=== PATIENT | male | born 1960 | race Caucasian/White ===

== ENCOUNTER 2018-01-21 16:05 | Emergency (ER) | payer OTHER ==
[2018-01-21 16:22] VITALS: BP 123/79; PULSE 71; RESP 18; TEMP 97.4
[2018-01-21] MEDS ORDERED: KETOROLAC 30 MG/ML 1 ML VIAL IM STA (16:39)
--- NOTE | 2018-01-21 16:47 | ED ---
Lower Extremity Injury HPI - General Chief Complaint: Extremity Injury, Lower Stated Complaint: rt knee injury Time Seen by Provider: 01/21/18 16:23 Source: patient, RN notes reviewed Mode of arrival: wheelchair Limitations: no limitations - History of Present Illness Initial Comments: This is a 57-year-old male who presents to the emergency department with chief complaint of right knee injury. 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 He states that his right knee has been sore for a while now but when he got out of his truck on Sunday he twisted it. He states that the pain was so bad that he felt nauseous. He complains of pain to the medial aspect of his right knee with associated swelling. He states that he has been having difficulty ambulating. Denies any other injuries or trauma. Denies fever, chills, chest pain, shortness of breath, abdominal pain, nausea or vomiting, constipation or diarrhea, dysuria or hematuria, numbness or tingling, headache or vision changes. - Related Data Allergies Allergy/AdvReac Type Severity Reaction Status Date / Time No Known Allergies Allergy Verified 01/21/18 16:21 Review of Systems ROS Statement: Those systems with pertinent positive or pertinent negative responses have been documented in the HPI. ROS Other: All systems not noted in ROS Statement are negative. Past Medical History Past Medical History: Atrial Fibrillation, Hypertension Additional Past Medical History / Comment(s): "bad back" History of Any Multi-Drug Resistant Organisms: None Reported Past Surgical History: Hernia Repair Additional Past Surgical History / Comment(s): carpal tunnel surgery on right wrist Past Psychological History: No Psychological Hx Reported Smoking Status: Former smoker Past Alcohol Use History: Rare Past Drug Use History: Marijuana General Exam - General Exam Comments Initial Comments: General: Awake and alert, well-developed; in no apparent distress. HEENT: Head atraumatic, normocephalic. Pupils are equal, round and reactive to light. Extraocular movements intact. Oropharynx moist without erythema or exudate. Neck: Supple. Normal ROM. Cardiovascular: Regular rate and rhythm. No murmurs, rubs or gallops. Chest symmetrical. Respiratory: Lungs clear to auscultation bilaterally. No wheezes, rales or rhonchi. Normal respiratory effort with no use of accessory muscles. Musculoskeletal: Normal range of motion of the right knee. There is generalized soft tissue swelling. Tenderness on palpation of the medial joint line. No erythema or ecchymosis noted. Sensation is intact. Pedal pulses are 2+ equal and palpable bilaterally. Skin: [place], warm and dry without rashes or lesions. Neurological: Alert and oriented x3. CN II-XII grossly intact. Speech is fluent and answers are appropriate. No focal neuro deficits. Psychiatric: Normal mood and affect. No overt signs of depression or anxiety noted. Limitations: no limitations Course Vital Signs 01/21/18 16:15 Temperature 97.4 F L Pulse Rate 71 Respiratory 18 Rate Blood Pressure 123/79 O2 Sat by Pulse 96 Oximetry Medical Decision Making - Medical Decision Making This is a 57-year-old male who presents to the emergency department with chief complaint of right knee injury. Patient is constantly on his knees for work and has chronic knee pain. However, on Sunday he got out of his truck and twisted the right knee which resulted in an acute onset of pain and swelling. Patient is having difficulty ambulating due to the pain. An x-ray was obtained and revealed no acute fractures or dislocations. Patient likely suffering from a ligamentous injury to the right knee. Knee immobilizer was placed and patient tolerated well without complication. He will be given referral to orthopedics for follow-up. Vital signs are stable and he is in no acute distress. He is neurovascularly intact. Patient will be discharged home at this time. He is in agreement with plan and voices understanding. All questions were answered. - Radiology Data Radiology results: report reviewed, image reviewed X-ray right knee impression: There is no acute fracture or dislocation in the right knee Disposition Clinical Impression: Acute internal derangement of knee Disposition: HOME SELF-CARE Condition: Good Instructions: Knee Sprain (ED) Additional Instructions: Please rest, ice, elevate and wear the immobilizer throughout the day. Please follow up with Dr. Kilgore, orthopedics within 1-2 days. Please follow up with primary care provider within 1-2 days. Return to emergency department if symptoms should worsen or any concerns arise. Is patient prescribed a controlled substance at d/c from ED?: No Referrals: Hermelindo King MD [Primary Care Provider] - 1-2 days Oni Kilgore MD [STAFF PHYSICIAN] - 1-2 days Time of Disposition: 17:00
--- NOTE | 2018-01-21 16:58 | XR ---
EXAMINATION TYPE: XR knee complete RT DATE OF EXAM: 01/21/2018 CLINICAL HISTORY: Pain after twisting injury. TECHNIQUE: Three views of the right knee are obtained. COMPARISON: None. FINDINGS: There is no acute fracture/dislocation evident in right knee. There is mild joint space lo ss medial and lateral tibiofemoral compartments. There is mild to moderate joint space loss patellofe moral compartment. Posterior vascular calcification distal femur level is seen. IMPRESSION: There is no acute fracture or dislocation in the ht knee.
== END 2018-01-21 17:20 | disposition home or self-care (01) ==
LOC: EC 16:05
DX: S89.81XA Other specified injuries of right lower leg, initial encounter (principal); Z87.891 Personal history of nicotine dependence; X50.1XXA Overexertion from prolonged static or awkward postures, initial encounter; Y93.89 Activity, other specified
CPT/HCPCS: 73562; 99283; 96372; L1830; J1885

== ENCOUNTER → 2024-07-15 | Outpatient (CLI) | payer MEDICARE ==
--- NOTE | 2024-07-16 09:40 | MR ---
EXAMINATION TYPE: MR lumbar spine wo/w con DATE OF EXAM: 07/15/2024 10:16 PM COMPARISON: None. CLINICAL INDICATION: Male, 63 years old with history of M51.369; PHH, low back pain that radiates int o left and right buttocks and down right leg TECHNIQUE: Multi planar, multi sequence imaging was performed utilizing: T1-weighted, T2-weighted, a nd turbo inversion recovery imaging of the lumbar spine. IV Contrast: 11 mL Gadobutrol (None, if empty) FINDINGS: Alignment: The lumbar vertebral bodies have preserved heights and alignment. Cord: The conus medullaris and the distal spinal cord appear unremarkable with regards to their signa l intensity and morphology. No abnormal postcontrast enhancement. Bones/Discs: Moderate degeneration changes throughout the spine with osteophyte formation and facet j oint arthropathy. Intervertebral disc signal is maintained. Reactive adjoining endplate edema at L2-L 3 posterior endplates. Neural pseudoarthrosis of the spinous processes with reactive enhancement. T12-L1: No evidence of significant spinal canal stenosis or neural foraminal stenosis. L1-L2: No evidence of significant spinal canal stenosis or neural foraminal stenosis. L2-L3: Disc bulge and facet joint arthropathy result in moderate to severe spinal canal and moderate to severe left and moderate right bilateral neural foraminal stenosis. Some reactive enhancement at the level of the L2-L3 posterior endplates in the area of large disc bulge. Degenerative reactive enh ancement also seen around the facet joints at this level. L3-L4: Disc bulge and facet joint arthropathy result in mild spinal canal and mild to moderate bilate ral neural foraminal stenosis. Degenerative reactive enhancement also seen around the facet joints a t this level. L4-L5: Disc uncovering the central disc protrusion with grade 1 anterolisthesis and facet joint arthr opathy with moderate spinal canal stenosis and moderate bilateral bilateral neural foraminal stenosis . Nerve roots are displaced by the disc protrusion centrally. Degenerative reactive enhancement also seen around the facet joints at this level. L5-S1: The disc has a rounded posterior morphology without significant spinal canal stenosis. Facet j oint arthropathy with moderate to severe left and mild right neural foraminal stenosis. No significant spinal canal or neural foraminal stenosis in the remainder of the visualized levels. Other findings: None. IMPRESSION: 1. L2-L3 moderate to severe spinal canal stenosis secondary disc bulge and facet joint arthropathy w ith moderate bilateral neural foraminal stenosis. There are some reactive enhancement at the adjoinin g endplates near this disc bulge posteriorly. 2. Moderate disc degeneration with associated osteoarthritic changes. Neural foraminal stenosis wors e with moderate to severe left 3. Grade 1 anterolisthesis of L4 and L5 with central disc protrusion results in moderate bilateral n eural foraminal stenosis and moderate spinal canal stenosis. This central protrusion does efface the cauda equina in the spinal canal. 4. 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 [facility], Workstation: [id number], 07/16/2024 9:37 AM
== END | disposition home or self-care (01) ==
LOC: RADMRIMAIN 19:00
PROVIDERS: ATTEND Family Medicine
DX: M51.369 Other intervertebral disc degeneration, lumbar region without mention of lumbar back pain or lower extremity pain (principal); M51.26 Other intervertebral disc displacement, lumbar region; M47.816 Spondylosis without myelopathy or radiculopathy, lumbar region; M43.16 Spondylolisthesis, lumbar region; M99.73 Connective tissue and disc stenosis of intervertebral foramina of lumbar region; M48.26 Kissing spine, lumbar region
CPT/HCPCS: 72158; A9585

== ENCOUNTER → 2024-09-15 | Outpatient (CLI) | payer MEDICARE ==
--- NOTE | 2024-09-16 11:05 | CA ---
Transthoracic Echo Report Name: Ruben Bustillos Age: 64 Gender: M : 1960 Exam Date: 09/15/2024 17:25 Exam Location: [facility] Ht (in): 74 Wt (lb): 250 Ordering Physician: Pietro Woodard MD Attending/Referring Phys: [employer] Machine Operator Cecile Silva RDCS Procedure CPT: Indications: I27.20 pulmonary HTN Cardiac Hx: Technical Quality: Fair Contrast 1: Total Dose (mL): Contrast 2: Total Dose (mL): MEASUREMENTS (Male / Female) Normal Values 2D ECHO LV Diastolic Diameter PLAX 5.6 cm 4.2 - 5.9 / 3.9 - 5.3 cm LV Systolic Diameter PLAX 3.9 cm IVS Diastolic Thickness 1.2 cm 0.6 - 1.0 / 0.6 - 0.9 cm LVPW Diastolic Thickness 1.3 cm 0.6 - 1.0 / 0.6 - 0.9 cm LV Relative Wall Thickness 0.4 RV Internal Dim ED PLAX 3.7 cm LA Systolic Diameter LX 3.6 cm 3.0 - 4.0 / 2.7 - 3.8 cm LV Diastolic Volume MOD 4C 108.2 cm??? LV Systolic Volume MOD 4C 50.0 cm??? LV Ejection Fraction MOD 4C 53.8 % LV Cardiac Index MOD 4C 1561.3 cm???/min???m??? LV Diastolic Length 4C 7.7 cm LV Systolic Length 4C 6.7 cm LV Diastolic Volume MOD 2C 62.0 cm??? LV Systolic Volume MOD 2C 29.5 cm??? LV Ejection Fraction MOD 2C 52.4 % LV Cardiac Index MOD 2C 870.2 cm???/min???m??? LV Diastolic Length 2C 6.7 cm LV Systolic Length 2C 5.8 cm LA Volume 64.9 cm??? 18 - 58 / 22 - 52 cm??? LA Volume Index 26.4 cm???/m??? 16 - 28 cm???/m??? M-MODE Aortic Root Diameter MM 4.1 cm AV Cusp Separation MM 2.9 cm DOPPLER AV Peak Velocity 143.9 cm/s AV Peak Gradient 8.3 mmHg MV Area PHT 3.3 cm??? Mitral E Point Velocity 73.8 cm/s Mitral A Point Velocity 80.7 cm/s Mitral E to A Ratio 0.9 MV Deceleration Time 229.4 ms TR Peak Velocity 218.6 cm/s TR Peak Gradient 19.1 mmHg Right Ventricular Systolic Press 23.0 mmHg FINDINGS Left Ventricle Left ventricular ejection fraction is estimated at 55-60 %. Mildly increased septal wall thickness. Left ventricular cavity size normal. Right Ventricle Mild right ventricular dilatation. Right ventricular systolic pressure within normal limits. Right Atrium Mild right atrial dilatation. No right atrial thrombus or mass seen. Left Atrium Mildly increased left atrial volume. Mildly increased left atrial area. No left atrial thrombus or mass present. Mitral Valve Structurally normal mitral valve. No mitral stenosis, regurgitation or prolapse. Aortic Valve Trileaflet aortic valve. No aortic valve stenosis or regurgitation. Tricuspid Valve Structurally normal tricuspid valve. Trace to mild tricuspid regurgitation. Pulmonic Valve Structurally normal pulmonic valve. Trace pulmonic regurgitation. Pericardium No pericardial or pleural effusion. Aorta Moderate aortic dilatation at the level of the sinuses of valsalva 41 mm. Ascending AO up to 51 mm CONCLUSIONS LVEF 55% Mild concentric LVH Mild RV dilatation. Normal RV systolic function Mild biatrial dilatation No significant valvular dysfunction Aortic root measured at 4.1 cm. Ascending aorta measured at 5.1 cm. Consider obtaining a CTA aorta if not obtained 1 in the past. Previewed by: Dr Brian Recinos (Electronically Signed) Final Date: 16 September 2024 11:05
== END | disposition home or self-care (01) ==
LOC: RADECHMAIN 17:19
PROVIDERS: ATTEND Family Medicine
DX: I27.20 Pulmonary hypertension, unspecified (principal); I37.1 Nonrheumatic pulmonary valve insufficiency; I07.1 Rheumatic tricuspid insufficiency
CPT/HCPCS: 93306

== ENCOUNTER → 2024-10-13 | Outpatient (CLI) | payer MEDICARE ==
--- NOTE | 2024-10-13 18:30 | CT ---
EXAMINATION TYPE: CT angio chest CT DLP: 544.1 mGycm, Automated exposure control for dose reduction was used. DATE OF EXAM: 10/13/2024 6:00 PM COMPARISON: None. CLINICAL INDICATION:Male, 64 years old with history of I35.9, I48.0; afib/enlarged heart TECHNIQUE/CONTRAST: CTA scan of the thorax is performed with IV Contrast, patient injected with 100ml mL of Isovue 370, M IP images are created and reviewed these are created on a separate workstation.. FINDINGS: Pulmonary Artery: There is no evidence for a filling defect within the pulmonary vasculature to sugge st acute pulmonary embolism. The pulmonary artery is of normal size. Lungs/Pleura: No evidence of focal consolidation, pleural effusion or pneumothorax. Bibasilar atelect asis. Airway: Large airways are patent. Heart: Heart is within normal limits for size. Vasculature: No evidence of aortic aneurysm. Mediastinum: No gross evidence of adenopathy. Musculoskeletal: No acute osseous abnormalities Soft Tissues/lymph nodes: Unremarkable. Lower neck: No significant findings. Upper Abdomen: Small hiatal hernia. Incidental left adrenal gland indeterminate nodule measuring 1.5 cm. IMPRESSION: 1. No evidence of pulmonary embolism. 2. Indeterminate left adrenal gland nodule. Correlate with any prior imaging otherwise nonemergent/ou tpatient CT/MRI abdomen adrenal mass protocol with and without IV contrast is recommended for further characterization. [facility], , 10/13/2024 6:28 PM
== END | disposition home or self-care (01) ==
LOC: RADCTMAIN 17:20
PROVIDERS: ATTEND Family Medicine
DX: I35.9 Nonrheumatic aortic valve disorder, unspecified (principal); I48.0 Paroxysmal atrial fibrillation; K44.9 Diaphragmatic hernia without obstruction or gangrene; J98.11 Atelectasis
CPT/HCPCS: 71275; Q9967

== ENCOUNTER 2024-11-05 17:35 | Observation (INO) | payer MEDICARE ==
--- NOTE | 2024-11-05 18:15 | ED ---
Abdominal Pain HPI - General Chief Complaint: Abdominal Pain Stated Complaint: abd pain back pain Time Seen by Provider: 11/05/24 18:10 Source: patient, RN notes reviewed Mode of arrival: ambulatory Limitations: no limitations - History of Present Illness Initial Comments: This is a 64-year-old male who presents to the emergency department for abdominal pain. States that it started yesterday. Abdominal pain is in the mid to lower abdomen, however he does not believe it is worse on any particular side. States that it shoots straight into his back. Reports associated nausea and vomiting. Denies any changes in bowel or bladder habits. Denies any history of similar pain in the past. MD Complaint: abdominal pain - Related Data Home Medications Medication Instructions Recorded Confirmed Aspirin 325 mg PO DAILY 12/05/18 12/05/18 Cyclobenzaprine HCl 10 mg PO TID PRN 12/05/18 12/05/18 Gabapentin 600 mg PO BID 12/05/18 12/05/18 HYDROcodone/APAP 10-325MG [Left Hand 1 tab PO TID PRN 12/05/18 12/05/18 10-325] Ibuprofen/Pseudoephedrine HCl 1 tab PO BID PRN 12/05/18 12/05/18 [Advil Cold & Sinus Caplet] Terazosin HCl 10 mg PO BID 12/05/18 12/05/18 hydroCHLOROthiazide [Hydrodiuril] 25 mg PO DAILY 12/05/18 12/05/18 Previous Rx's Medication Instructions Recorded Metoprolol Tartrate [Lopressor] 50 mg PO BID #60 tab 12/06/18 Allergies Allergy/AdvReac Type Severity Reaction Status Date / Time No Known Allergies Allergy Verified 11/05/24 18:32 Review of Systems ROS Statement: Those systems with pertinent positive or pertinent negative responses have been documented in the HPI. ROS Other: All systems not noted in ROS Statement are negative. Past Medical History Past Medical History: Atrial Fibrillation, Hypertension Additional Past Medical History / Comment(s): Chronic back pain. History of Any Multi-Drug Resistant Organisms: None Reported Past Surgical History: Hernia Repair, Orthopedic Surgery, Tonsillectomy Additional Past Surgical History / Comment(s): R carpal tunnel release, bilateral inguinal hernia repairs, colonoscopy Past Anesthesia/Blood Transfusion Reactions: No Reported Reaction Past Psychological History: No Psychological Hx Reported Additional Psychological History / Comment(s): Pt resides with his spouse, 3 cats and a dog. 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 Past Alcohol Use History: Rare Additional Past Alcohol Use History / Comment(s): Pt started smoking in 1975 and quit in 2011. Past Drug Use History: Marijuana Additional Drug Use History / Comment(s): Occasional marijuana - Past Family History Father Additional Family Medical History / Comment(s): Father of a lung infection after a lung biopsy. Mother Family Medical History: Dementia, Diabetes Mellitus Additional Family Medical History / Comment(s): Mother is . General Exam Limitations: no limitations General appearance: alert, in distress Head exam: Present: atraumatic, normocephalic, normal inspection Respiratory exam: Present: normal lung sounds bilaterally. Absent: respiratory distress, wheezes, rales, rhonchi, stridor Cardiovascular Exam: Present: regular rate, normal rhythm GI/Abdominal exam: Present: soft, tenderness (Mid abdomen), normal bowel sounds. Absent: distended Neurological exam: Present: alert, oriented X3, CN II-XII intact Psychiatric exam: Present: normal affect, normal mood Skin exam: Present: warm, dry, intact, normal color. Absent: rash Course Vital Signs 11/05/24 11/05/24 18:29 23:34 Temperature 97.9 F Pulse Rate 98 99 Respiratory 24 20 Rate Blood Pressure 166/129 134/94 O2 Sat by Pulse 98 96 Oximetry Medical Decision Making - Medical Decision Making This is a 64-year-old male who presents to the emergency department for abdominal pain. Was pt. sent in by a medical professional or institution? @ -No Did you speak to anyone other than the patient for history? @ -No Did you review nursing and triage notes? @ -Yes, and I agree, it is accurate with regards to the patient's symptoms. Were old charts reviewed? @ -No Differential Diagnosis? @ -Differential Abdominal Pain Men: Appendicitis, cholecystitis, diverticulosis, ischemic bowel, pancreatitis, hepatitis, UTI, gastroenteritis, AAA, incarcerated hernia, bowel obstruction, constipation, inflammatory bowel, hepatitis, peptic ulcer disease, splenic infarction, perforated viscus, testicular torsion, this is not meant to be an all-inclusive list EKG interpreted by me (3pts min.)? @ -EKG interpreted by me demonstrating the following: Sinus rhythm. Ventricular rate 93 bpm, W[place] interval 179 ms, QRS duration 124 ms, QTc 420 ms. X-rays interpreted by me (1pt min.)? @ -Not obtained CT interpreted by me (1pt min.)? @ -CT scan of the abdomen and pelvis obtained. My interpretation identifies fat stranding around the pancreatic body. U/S interpreted by me (1pt. min.)? @ -Gallbladder ultrasound obtained. My interpretation identifies no cholelithiasis. What testing was considered but not performed? (CT, X-rays, U/S, labs)? Why? @ -None What meds were considered but not given? Why? @ -None Did you discuss the management of the patient with other professionals? @ -Yes, Dr. Woodard, who accepts the patient for admission. Did you reconcile home meds? @ -No Was smoking cessation discussed for >3mins.? @ -No Was critical care preformed (if so, how long)? @ -No Were there social determinants of health that impacted care today? How? (Homelessness, low income, unemployed, alcoholism, drug addiction, transportation, low edu. Level, literacy, decrease access to med. care, nursing home, rehab)? @ -No Was there de-escalation of care discussed even if they declined? (Discuss DNR or withdrawal of care, Hospice)? @ -No What co-morbidities impacted this encounter? (DM, HTN, Smoking, COPD, CAD, Cancer, CVA, Hep., AIDS, mental health diagnosis, sleep apnea, morbid obesity)? @ -None Was patient admitted / discharged? @ -Admitted. Lab work demonstrates mild leukocytosis of 11.6. Lipase elevated at 762. Urinalysis negative for signs of infection. CT scan of the abdomen and pelvis obtained revealing mild to moderate uncomplicated acute distal pancreatitis. Patient denies any substantial alcohol consumption. Denies any known problems with his triglycerides. Gallbladder ultrasound obtained for further evaluation. This revealed dilation and distention of the gallbladder as well as mild extrahepatic biliary ductal dilation. No shadowing mobile gallstones are identified. Patient admitted to medicine for pancreatitis. He w as kept n.p.o. and started on maintenance IV fluids. Lipid panel ordered with results pending at the time of admission. Gastroenterology consulted regarding the pancreatitis and extrahepatic biliary ductal dilation. General surgery consulted as well due to the dilation and distention of the gallbladder. Case discussed with ED attending Dr. Harris. Undiagnosed new problem with uncertain prognosis? @ -None Drug Therapy requiring intensive monitoring for toxicity (Heparin, Nitro, Insulin, Cardizem)? @ -None Were any procedures done? @ -None Diagnosis/symptom? @ -Pancreatitis Acute, or Chronic, or Acute on Chronic? @ -Acute Uncomplicated (without systemic symptoms) or Complicated (systemic symptoms)? @ -Complicated Side effects of treatment? @ -None Exacerbation, Progression, or Severe Exacerbation] @ -Not applicable Poses a threat to life or bodily function? @ -Yes, can lead to life-threatening infection - Lab Data Result diagrams: 11/05/24 18:36 11/05/24 18:36 Lab Results 11/05/24 11/05/24 11/05/24 Range/Units 18:36 18:36 18:36 WBC 11.6 H (3.8-10.6) k/uL RBC 4.14 L (4.30-5.90) m/uL Hgb 11.8 L (13.0-17.5) gm/dL Hct 35.0 L (39.0-53.0) % MCV 84.5 (80.0-100.0) fL MCH 28.6 (25.0-35.0) pg MCHC 33.9 (31.0-37.0) g/dL RDW 12.4 (11.5-15.5) % Plt Count 278 (150-450) k/uL MPV 8.0 Neutrophils % 85 % Lymphocytes % 8 % Monocytes % 6 % Eosinophils % 1 % Basophils % 0 % Neutrophils # 9.9 H (1.3-7.7) k/uL Lymphocytes # 0.9 L (1.0-4.8) k/uL Monocytes # 0.7 (0-1.0) k/uL Eosinophils # 0.1 (0-0.7) k/uL Basophils # 0.0 (0-0.2) k/uL Sodium 135 L (137-145) mmol/L Potassium 3.1 L (3.5-5.1) mmol/L Chloride 98 (98-107) mmol/L Carbon Dioxide 25 (22-30) mmol/L Anion Gap 12 mmol/L BUN 19 (9-20) mg/dL Creatinine 0.57 L (0.66-1.25) mg/dL Est GFR (CKD-EPI)AfAm >90 (>60 ml/min/1.73 sqM) Est GFR (CKD-EPI)NonAf >90 (>60 ml/min/1.73 sqM) Glucose 184 H (74-99) mg/dL Plasma Lactic Acid Gopi 1.2 (0.7-2.0) mmol/L Calcium 9.9 (8.4-10.2) mg/dL Total Bilirubin 0.7 (0.2-1.3) mg/dL AST 22 (17-59) U/L ALT 57 H (4-49) U/L Alkaline Phosphatase 111 (38-126) U/L Troponin I (0.000-0.034) ng/mL Total Protein 6.4 (6.3-8.2) g/dL Albumin 3.8 (3.5-5.0) g/dL Amylase 83 (30-110) U/L Lipase 762 H (23-300) U/L Urine Color Urine Appearance (Clear) Urine pH (5.0-8.0) Ur Specific [place] (1.001-1.035) Urine Protein (Negative) Urine Glucose (UA) (Negative) Urine Ketones (Negative) Urine Blood (Negative) Urine Nitrite (Negative) Urine Bilirubin (Negative) Urine Urobilinogen (<2.0) mg/dL Ur Leukocyte Esterase (Negative) 11/05/24 11/05/24 Range/Units 18:36 19:53 WBC (3.8-10.6) k/uL RBC (4.30-5.90) m/uL Hgb (13.0-17.5) gm/dL Hct (39.0-53.0) % MCV (80.0-100.0) fL MCH (25.0-35.0) pg MCHC (31.0-37.0) g/dL RDW (11.5-15.5) % Plt Count (150-450) k/uL MPV Neutrophils % % Lymphocytes % % Monocytes % % Eosinophils % % Basophils % % Neutrophils # (1.3-7.7) k/uL Lymphocytes # (1.0-4.8) k/uL Monocytes # (0-1.0) k/uL Eosinophils # (0-0.7) k/uL Basophils # (0-0.2) k/uL Sodium (137-145) mmol/L Potassium (3.5-5.1) mmol/L Chloride (98-107) mmol/L Carbon Dioxide (22-30) mmol/L Anion Gap mmol/L BUN (9-20) mg/dL Creatinine (0.66-1.25) mg/dL Est GFR (CKD-EPI)AfAm (>60 ml/min/1.73 sqM) Est GFR (CKD-EPI)NonAf (>60 ml/min/1.73 sqM) Glucose (74-99) mg/dL Plasma Lactic Acid Gopi (0.7-2.0) mmol/L Calcium (8.4-10.2) mg/dL Total Bilirubin (0.2-1.3) mg/dL AST (17-59) U/L ALT (4-49) U/L Alkaline Phosphatase (38-126) U/L Troponin I <0.012 (0.000-0.034) ng/mL Total Protein (6.3-8.2) g/dL Albumin (3.5-5.0) g/dL Amylase (30-110) U/L Lipase (23-300) U/L Urine Color Light Yellow Urine Appearance Clear (Clear) Urine pH 7.5 (5.0-8.0) Ur Specific [place] 1.016 (1.001-1.035) Urine Protein Negative (Negative) Urine Glucose (UA) Negative (Negative) Urine Ketones 2+ H (Negative) Urine Blood Negative (Negative) Urine Nitrite Negative (Negative) Urine Bilirubin Negative (Negative) Urine Urobilinogen <2.0 (<2.0) mg/dL Ur Leukocyte Esterase Negative (Negative) - Radiology Data Radiology results: report reviewed, image reviewed Disposition Clinical Impression: Pancreatitis Disposition: ADMITTED IP TO THIS HOSP
[2024-11-05] MEDS: HYDROmorphone 1 MG/ML 1 ML SYRINGE IVP STA ×2 (19:02→20:34)
[2024-11-05] MEDS: SODIUM CHLORIDE 0.9% 1,000 ML IV STA ×2 (19:03→22:53)
[2024-11-05] MEDS: ONDANSETRON 4 MG/2 ML VIAL IVP STA (19:03)
[2024-11-05 20:08] LABS: Appearance,Urine Clear (Clear); Bilirubin,Urine Negative (Negative); Blood,Urine Negative (Negative); Color,Urine Light Yellow; Glucose,Urine (UA) Negative (Negative); Ketones,Urine 2+ (Negative); Leukocyte Esterase,Urine Negative (Negative); Nitrite,Urine Negative (Negative); PH, Urine 7.5 (5.0-8.0); Protein,Urine Negative (Negative); Specific Gravity,Urine 1.016 (1.001-1.035); Urobilinogen,Urine <2.0 mg/dL (<2.0)
[2024-11-05] MEDS: PROCHLORPERAZINE INJ 10 MG/2 ML VIAL IVP STA (20:31)
[2024-11-05 20:50] LABS: Basophils % (A) 0 %; Eosinophils # (A) 0.1 k/uL (0-0.7); Eosinophils % (A) 1 %; HGB 11.8 gm/dL (13.0-17.5); Lymphocytes # (A) 0.9 k/uL (1.0-4.8); Lymphocytes % (A) 8 %; MCH 28.6 pg (25.0-35.0); MCHC 33.9 g/dL (31.0-37.0); MCV 84.5 fL (80.0-100.0); Monocytes # (A) 0.7 k/uL (0-1.0); Monocytes % (A) 6 %; Neutrophils # (A) 9.9 k/uL (1.3-7.7); Neutrophils % (A) 85 %; Platelet Count 278 k/uL (150-450); RBC 4.14 m/uL (4.30-5.90); RDW 12.4 % (11.5-15.5); WBC 11.6 k/uL (3.8-10.6)
--- NOTE | 2024-11-05 20:58 | CT ---
EXAMINATION TYPE: CT abdomen pelvis w con DATE OF EXAM: 11/05/2024 COMPARISON: None. CLINICAL INDICATION: Male, 64 years old with history of Generalized abdominal pain; PHH, Abdominal pa in/back pain for roughly two days. Nausea. TECHNIQUE: Performed without Oral Contrast and with IV Contrast, patient injected with 100 ml mL of Isovue 300. CT DLP: 1758.7 mGycm Automated exposure control for dose reduction was used. FINDINGS: LUNG BASES: No significant abnormality is appreciated. LIVER/GB: Gallbladder has distended margins. No surrounding ill-defined fluid or fat stranding. Liver is heterogeneously hypodense suggesting diffuse fatty infiltrative hepatocellular disease. No biliar y dilatation. PANCREAS: Mild to moderate fat stranding and ill-defined fluid in the region of the distal pancreatic body and tail near the splenic hilum. Pancreas is normal in size without ductal dilatation or defini tive area of nonenhancement. No well-formed focal fluid collection. SPLEEN: Mild splenomegaly of 14.6 cm long axis axial image 18. ADRENALS: Nonspecific 1.7 cm left adrenal nodule or mass effect image 26. KIDNEYS: Mild perinephric fluid is seen bilaterally which is nonspecific finding. FREE AIR: No free air is visualized. RETROPERITONEAL ADENOPATHY: None visualized REPRODUCTIVE ORGANS: Mildly enlarged prostate consistent with BPH bulging into bladder base. URINARY BLADDER: No significant abnormality is seen. PELVIC ADENOPATHY: None visualized. OSSEOUS STRUCTURES: No significant abnormality is seen. BOWEL: Small-sized hiatal hernia. No abnormal small or large bowel dilatation. OTHER: Moderate to large sized fat-containing left inguinal hernia. Moderate peripheral calcified edwin que of the aorta extends into branch vessels. IMPRESSION: CT FINDINGS SUGGEST MILD TO MODERATE UNCOMPLICATED ACUTE DISTAL PANCREATITIS DETAILED ABOVE. CORRE LATE CLINICALLY AND WITH PANCREATIC LAB VALUES. [facility], , 11/05/2024 8:56 PM
[2024-11-05 21:08] LABS: ALT 57 U/L (4-49); AST 22 U/L (17-59); African American GFR (CKD) >90 (>60 ml/min/1.73 sqM); Albumin 3.8 g/dL (3.5-5.0); Alkaline Phosphatase 111 U/L (38-126); Amylase 83 U/L (30-110); Anion Gap 12 mmol/L; Blood Urea Nitrogen 19 mg/dL (9-20); Calcium 9.9 mg/dL (8.4-10.2); Carbon Dioxide 25 mmol/L (22-30); Chloride 98 mmol/L (98-107); Glucose 184 mg/dL (74-99); Lipase 762 U/L (23-300); Non-African American GFR(CKD) >90 (>60 ml/min/1.73 sqM); Potassium 3.1 mmol/L (3.5-5.1); Sodium 135 mmol/L (137-145); Total Bilirubin 0.7 mg/dL (0.2-1.3); Total Protein 6.4 g/dL (6.3-8.2)
[2024-11-05] MEDS ORDERED: ACETAMINOPHEN TAB 325 MG TAB PO PRN (21:23)
[2024-11-05] MEDS ORDERED: ONDANSETRON 4 MG/2 ML VIAL IVP PRN (21:23)
[2024-11-05] MEDS ORDERED: NALOXONE 0.4 MG/ML 1 ML VIAL IV PRN (21:23)
[2024-11-05] MEDS ORDERED: PROCHLORPERAZINE INJ 10 MG/2 ML VIAL IVP PRN (21:24)
--- NOTE | 2024-11-05 22:08 | US ---
EXAMINATION TYPE: US gallbladder DATE OF EXAM: 11/05/2024 COMPARISON: CT today CLINICAL INDICATION: Male, 64 years old with history of Pancreatitis, eval for gallstones; Pancreatit is. Abd pain for 3 days TECHNIQUE: Grayscale and color Doppler imaging of the right upper quadrant was performed. FINDINGS: EXAM MEASUREMENTS: Liver Length: 21.1 cm Gallbladder Wall: 0.2 cm CBD: 0.9 cm Right Kidney: 11.0 x 4.9 x 6.2 cm FIRE CONTROL TECHNICIAN G NOTES:slightly limited due to midline gas Pancreas: Obscured by bowel gas Liver: hepatomegaly, increased echogenicity Gallbladder: dilated measuring 12.4cm in length. wall wnl. no stones seen. Evidence for sonographic Kilgore's sign: no CBD: dilated Right Kidney: wnl Hepatomegaly is present on ultrasound but is noted less prominent on recent CT. Visualized liver is h eterogeneously hyperechoic consistent with fatty infiltrative hepatocellular disease. No ascites. The re is mild extrahepatic biliary dilatation on ultrasound which is not identified on CT. Gallbladder h as distended margins and is slightly dilated but no mobile shadowing gallstones are appreciated. IMPRESSION: Mild extrahepatic biliary dilatation on ultrasound does not correlate with recent CT. No shadowing mobile gallstones. Suboptimal evaluation of pancreas on ultrasound. [facility], , 11/05/2024 10:05 PM
[2024-11-05] MEDS: HYDROmorphone 1 MG/ML 1 ML SYRINGE IVP PRN (22:22)
[2024-11-05] MEDS: METOCLOPRAMIDE 5 MG/ML 2 ML VIAL IVP STA (22:50)
[2024-11-05] MEDS: POTASSIUM CHLORIDE 20 MEQ in WATER FOR INJECTION 1 100ML.BAG IVPB STA (22:51)
[2024-11-06] MEDS: SODIUM CHLORIDE 0.9% 1,000 ML IV SCH (00:07)
[2024-11-06 02:51] LABS: Chol/HDL Ratio 4.09 Ratio; LDL Cholesterol,Calculated 84.8 mg/dL (0.0-131.0)
[2024-11-06] MEDS: PANTOPRAZOLE 40 MG/10 ML VIAL IV SCH (07:28)
[2024-11-06 08:40] LABS: Basophils % (A) 0 %; Eosinophils # (A) 0.2 k/uL (0-0.7); Eosinophils % (A) 2 %; HCT 34.3 % (39.0-53.0); Lymphocytes # (A) 0.5 k/uL (1.0-4.8); Lymphocytes % (A) 5 %; MCH 27.8 pg (25.0-35.0); MCHC 32.1 g/dL (31.0-37.0); MCV 86.6 fL (80.0-100.0); Mean Platelet Volume 7.6; Monocytes # (A) 0.7 k/uL (0-1.0); Monocytes % (A) 7 %; Neutrophils # (A) 8.8 k/uL (1.3-7.7); Neutrophils % (A) 85 %; Platelet Count 265 k/uL (150-450); RBC 3.95 m/uL (4.30-5.90); RDW 12.6 % (11.5-15.5); WBC 10.3 k/uL (3.8-10.6)
[2024-11-06 08:52] LABS: ALT 54 U/L (4-49); AST 26 U/L (17-59); African American GFR (CKD) >90 (>60 ml/min/1.73 sqM); Albumin 3.9 g/dL (3.5-5.0); Albumin/Globulin Ratio 1.6; Alkaline Phosphatase 111 U/L (38-126); Anion Gap 12 mmol/L; Blood Urea Nitrogen 21 mg/dL (9-20); Calcium 9.4 mg/dL (8.4-10.2); Carbon Dioxide 23 mmol/L (22-30); Chloride 102 mmol/L (98-107); Globulin 2.5 g/dL; Glucose 156 mg/dL (74-99); Lipase 649 U/L (23-300); Non-African American GFR(CKD) >90 (>60 ml/min/1.73 sqM); Potassium 3.1 mmol/L (3.5-5.1); Sodium 137 mmol/L (137-145); Total Bilirubin 0.8 mg/dL (0.2-1.3); Total Protein 6.4 g/dL (6.3-8.2)
--- NOTE | 2024-11-06 11:58 | P.CONS ---
History of Present Illness - Reason for Consult Consult date: 11/06/24 Pancreatitis Requesting physician: Lisa Maria - Chief Complaint Abdominal pain - History of Present Illness This a pleasant 64-year-old male who presented to the emergency department yesterday evening. States that the pain started 2 to 3 days ago progressively got worse. He had nausea and vomiting the other night but none since then. Pain is mostly mid abdomen. He had workup for his abdominal pain with findings of elevated lipase and a CT of the abdomen pelvis with acute pancreatitis. Gastroenterology was consulted for pancreatitis. Patient denies any previous history of pancreatitis. Denies any regular alcohol consumption, no previous history of gallbladder disease. He denies any new medications. Past medical history includes atrial fibrillation and hypertension, he is not on any anticoagulation. LFTs are unremarkable. Mild leukocytosis on admission. He has been afebrile. He states that he has chronic back pain which is bothering him as well however this pain is separate less and still has significant pain in the upper abdomen. Review of Systems REVIEW OF SYSTEMS: CARDIOPULMONARY: No chest pain or shortness of breath. Gastrointestinal: Abdominal pain. Nausea with vomiting. No hematemesis, coffee-ground emesis. No rectal bleeding, or melena. GENITOURINARY: No dysuria or hematuria. MUSCULOSKELETAL: Reports normal range of motion. Chronic low back pain. SKIN: No rashes. No jaundice. ENDOCRINE: No chills, fevers. No excessive weight gain or loss. No polydipsia or polyuria. PSYCHIATRIC: Unremarkable. NEUROLOGY: No change in mental status. Denies dizziness, headache. ENT: Vision unremarkable. CONSTITUTIONAL: No recent weight loss. No fever, chills, night sweats. Past Medical History Past Medical History: Atrial Fibrillation, Hypertension Additional Past Medical History / Comment(s): Chronic back pain. History of Any Multi-Drug Resistant Organisms: None Reported Past Surgical History: Hernia Repair, Orthopedic Surgery, Tonsillectomy Additional Past Surgical History / Comment(s): R carpal tunnel release, bilateral inguinal hernia repairs, colonoscopy Past Anesthesia/Blood Transfusion Reactions: No Reported Reaction Past Psychological History: No Psychological Hx Reported Additional Psychological History / Comment(s): Pt resides with his spouse, 3 cats and a dog. 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 Past Alcohol Use History: Rare Additional Past Alcohol Use History / Comment(s): Pt started smoking in 1975 and quit in 2011. Past Drug Use History: Marijuana Additional Drug Use History / Comment(s): Occasional marijuana - Past Family History Father Additional Family Medical History / Comment(s): Father of a lung infection after a lung biopsy. Mother Family Medical History: Dementia, Diabetes Mellitus Additional Family Medical History / Comment(s): Mother is . Medications and Allergies Home Medications Medication Instructions Recorded Confirmed Type Aspirin 325 mg PO DAILY 12/05/18 11/06/24 History Cyclobenzaprine HCl 10 mg PO TID 12/05/18 11/06/24 History Terazosin HCl 10 mg PO BID 12/05/18 11/06/24 History hydroCHLOROthiazide [Hydrodiuril] 25 mg PO DAILY 12/05/18 11/06/24 History Metoprolol Tartrate [Lopressor] 50 mg PO BID #60 tab 12/06/18 11/06/24 Rx Albuterol Sulfate/Budesonide 2 puff INHALATION RT-Q4H PRN 11/06/24 11/06/24 History [Airsupra 90-80 Mcg Inhaler] Budesonide/Glycopyr/Formoterol 2 puff INHALATION RT-BID 11/06/24 11/06/24 History [Breztri Aerosphere Inhaler] HYDROcodone/APAP 7.5-325MG [[place] 1 tab PO TID PRN 11/06/24 11/06/24 History 7.5-325] Ibuprofen [Motrin] 800 mg PO BID 11/06/24 11/06/24 History Losartan [Cozaar] 50 mg PO DAILY 11/06/24 11/06/24 History Omeprazole [PriLOSEC] 40 mg PO DAILY 11/06/24 11/06/24 History Sildenafil Citrate 50 mg PO DAILY 11/06/24 11/06/24 History Spironolactone [Aldactone] 25 mg PO DAILY 11/06/24 11/06/24 History Allergies Allergy/AdvReac Type Severity Reaction Status Date / Time No Known Allergies Allergy Verified 11/06/24 08:32 Physical Exam Vitals: Vital Signs Temp Pulse Resp BP Pulse Ox 11/06/24 07:31 115 H 24 11/06/24 06:09 122 H 22 155/96 96 11/06/24 01:45 98 22 153/82 97 11/05/24 23:34 99 20 134/94 96 11/05/24 18:29 97.9 F 98 24 166/129 98 Intake and Output 11/05/24 11/06/24 11/06/24 22:59 06:59 14:59 Other: Weight 113.398 kg General appearance: The patient is alert, oriented, appears in no acute distress. HET: Head is normocephalic and atraumatic. Conjunctiva pink. Sclera anicteric. Neck: Supple without lymphadenopathy. Trachea midline. Heart: Regular. Lungs: Equal expansion, normal respiratory effort. Abdomen: Soft, upper abdominal tenderness, nondistended. Skin: No rashes. No jaundice. Extremities: Normal skin color and turgor. No pedal edema. Neurological: No focal deficits. Alert and oriented x3. Results CBC & Chem 7: 11/06/24 08:14 11/06/24 08:14 Labs: Abnormal Lab Results - Last 24 Hours (Table) 11/05/24 11/05/24 11/05/24 Range/Units 18:36 18:36 18:36 WBC 11.6 H (3.8-10.6) k/uL RBC 4.14 L (4.30-5.90) m/uL Hgb 11.8 L (13.0-17.5) gm/dL Hct 35.0 L (39.0-53.0) % Neutrophils # 9.9 H (1.3-7.7) k/uL Lymphocytes # 0.9 L (1.0-4.8) k/uL Sodium 135 L (137-145) mmol/L Potassium 3.1 L (3.5-5.1) mmol/L Creatinine 0.57 L (0.66-1.25) mg/dL Glucose 184 H (74-99) mg/dL ALT 57 H (4-49) U/L HDL Cholesterol 34.20 L (40.00-60.00) mg/dL Lipase 762 H (23-300) U/L Urine Ketones (Negative) 11/05/24 11/06/24 Range/Units 19:53 08:14 WBC (3.8-10.6) k/uL RBC 3.95 L (4.30-5.90) m/uL Hgb 11.0 L (13.0-17.5) gm/dL Hct 34.3 L (39.0-53.0) % Neutrophils # 8.8 H (1.3-7.7) k/uL Lymphocytes # 0.5 L (1.0-4.8) k/uL Sodium (137-145) mmol/L Potassium (3.5-5.1) mmol/L Creatinine (0.66-1.25) mg/dL Glucose (74-99) mg/dL ALT (4-49) U/L HDL Cholesterol (40.00-60.00) mg/dL Lipase (23-300) U/L Urine Ketones 2+ H (Negative) Comments: CT abdomen pelvis with contrast reports findings suggestive of mild to moderate uncomplicated acute distal pancreatitis. Gallbladder is reported with distended margins. Liver heterogeneously hypodense suggesting diffuse fatty infiltrative hepatocellular disease. No biliary dilation. Gallbladder ultrasound reports mild extrahepatic biliary dilation on ultrasound, CBD measuring 0.9 cm. Dilated gallbladder. No shadowing mobile gallstones. Suboptimal evaluation of pancreas on ultrasound. Assessment and Plan (1) Pancreatitis Narrative/Plan: 64-year-old male presenting with abdominal pain elevated lipase and CT evidence of acute mild to moderate uncomplicated pancreatitis. Gallbladder wall distended, mildly dilated CBD 0.9 cm however no gallstones noted on CT or abdominal ultrasound. Unclear etiology of pancreatitis. This is patient's first episode with no reported history of heavy alcohol use, no new medications no family history of pancreatitis and does not appear to be a gallstone pancreatitis. Total bilirubin and LFTs are unremarkable. General surgery is following and a HIDA scan has been ordered. Will await results. Continue to treat symptomatically. Current Visit: Yes Status: Acute Code(s): K85.90 - ACUTE PANCREATITIS WITHOUT NECROSIS OR INFECTION, UNSP SNOMED Code(s): 07565344 (2) Abdominal pain Current Visit: Yes Status: Acute Code(s): R10.9 - UNSPECIFIED ABDOMINAL PAIN SNOMED Code(s): 35625192 (3) Chronic back pain Current Visit: Yes Status: Acute Code(s): M54.9 - DORSALGIA, UNSPECIFIED; G89.29 - OTHER CHRONIC PAIN SNOMED Code(s): 996440657 Plan: 1. Continue symptomatic and supportive care 2. Keep n.p.o. 3. Pain medication as needed 4. Antiemetics as needed 5. Protonix 40 mg daily for GI prophylaxis 6. Repeat CMP and lipase ordered 7. Await HIDA scan results 8. General surgery following 9. Further recommendations forthcoming based on clinical course Thank you for this consultation, we will continue to follow. Dr. Jose Live I agree with the dictator's note, documented as a scribe by Selene Og.
[2024-11-06] MEDS: KETOROLAC 15 MG/ML 1 ML VIAL IVP PRN (12:57)
--- NOTE | 2024-11-06 14:41 | P.GSCN ---
History of Present Illness Consult date: 11/06/24 History of present illness: CHIEF COMPLAINT: Abdominal pain HISTORY OF PRESENT ILLNESS: This is a 64-year-old male who presented to the hospital with complaints of mid abdominal pain for the past 3 days. He has been nauseated with decreased appetite. He did have 1 episode of vomiting. He denies any prior history of pancreatitis. CT scan abdomen pelvis that showed no evidence of pancreatitis gallbladder ultrasound history no evidence of gallstones. Did report dilated and distended gallbladder. Patient is lipase elevated on admission. Patient also reports a history of a duodenal ulcer. Past abdominal surgeries include inguinal hernia repair. PAST MEDICAL HISTORY: Atrial fibrillation, hypertension, COPD PAST SURGICAL HISTORY: Inguinal hernia repair MEDICATIONS: See below ALLERGIES: See below SOCIAL HISTORY: No illicit drug use. REVIEW OF SYSTEMS: CONSTITUTIONAL: Denies fever or chills. HEENT: Denies blurred vision, vision changes, or eye pain. Denies hemoptysis CARDIOVASCULAR: Denies chest pain or pressure. RESPIRATORY: No shortness of breath. GASTROINTESTINAL: See HPI for pertinent findings HEMATOLOGIC: Denies bleeding disorders. GENITOURINARY: Denies any blood in urine or increased urinary frequency. SKIN: Denies pruitis. Denies rash. PHYSICAL EXAM: VITAL SIGNS: Reviewed GENERAL: Well-developed in no acute distress. HEENT: No sclera icterus. Extraocular movements grossly intact. Moist buccal mucosa. Head is atraumatic, normocephalic. No nasal drainage. ABDOMEN: Soft. Nondistended. Tenderness palpation of the mid abdomen above the umbilicus and epigastric area. Mild discomfort with palpation in the right upper quadrant. No rebound or guarding noted. NEUROLOGIC: Alert and oriented. Cranial nerves II through XII grossly intact. LABORATORY DATA: WBC 11.6 down to 10.3 Hgb 11.0 platelets 265 Sodium is 137 potassium is 3.1 creatinine 0.64 lactic acid 1.2 Total bilirubin 0.8 AST 26 ALT 54 alk phos 111 Lipase elevated at 762 down to 649 IMAGING: CT scan abdomen pelvis reports findings mild to moderate uncomplicated acute distal pancreatitis. Gallbladder ultrasound reports a dilated gallbladder with no gallstones. Mild extrahepatic biliary dilatation. ASSESSMENT: 1. Acute pancreatitis 2. Dilated gallbladder noted on ultrasound PLAN: -HIDA scan ordered. Results pending. -Keep patient n.p.o. for now -Continue to correct potassium. Check magnesium level. -Repeat lipase in a.m. -Continue IV fluids -Continue pain management -Agree with GI consult Physician Curriculum Supervisor note has been reviewed by physician. Signing provider agrees with the documented findings, assessment, and plan of care. Past Medical History Past Medical History: Atrial Fibrillation, Hypertension Additional Past Medical History / Comment(s): Chronic back pain. History of Any Multi-Drug Resistant Organisms: None Reported Past Surgical History: Hernia Repair, Orthopedic Surgery, Tonsillectomy Additional Past Surgical History / Comment(s): R carpal tunnel release, bilateral inguinal hernia repairs, colonoscopy Past Anesthesia/Blood Transfusion Reactions: No Reported Reaction Past Psychological History: No Psychological Hx Reported Additional Psychological History / Comment(s): Pt resides with his spouse, 3 cats and a dog. 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 Past Alcohol Use History: Rare Additional Past Alcohol Use History / Comment(s): Pt started smoking in 1975 and quit in 2011. Past Drug Use History: Marijuana Additional Drug Use History / Comment(s): Occasional marijuana - Past Family History Father Additional Family Medical History / Comment(s): Father of a lung infection after a lung biopsy. Mother Family Medical History: Dementia, Diabetes Mellitus Additional Family Medical History / Comment(s): Mother is . Medications and Allergies Home Medications Medication Instructions Recorded Confirmed Type Aspirin 325 mg PO DAILY 12/05/18 11/06/24 History Cyclobenzaprine HCl 10 mg PO TID 12/05/18 11/06/24 History Terazosin HCl 10 mg PO BID 12/05/18 11/06/24 History hydroCHLOROthiazide [Hydrodiuril] 25 mg PO DAILY 12/05/18 11/06/24 History Metoprolol Tartrate [Lopressor] 50 mg PO BID #60 tab 12/06/18 11/06/24 Rx Albuterol Sulfate/Budesonide 2 puff INHALATION RT-Q4H PRN 11/06/24 11/06/24 History [Airsupra 90-80 Mcg Inhaler] Budesonide/Glycopyr/Formoterol 2 puff INHALATION RT-BID 11/06/24 11/06/24 History [Breztri Aerosphere Inhaler] HYDROcodone/APAP 7.5-325MG [[place] 1 tab PO TID PRN 11/06/24 11/06/24 History 7.5-325] Ibuprofen [Motrin] 800 mg PO BID 11/06/24 11/06/24 History Losartan [Cozaar] 50 mg PO DAILY 11/06/24 11/06/24 History Omeprazole [PriLOSEC] 40 mg PO DAILY 11/06/24 11/06/24 History Sildenafil Citrate 50 mg PO DAILY 11/06/24 11/06/24 History Spironolactone [Aldactone] 25 mg PO DAILY 11/06/24 11/06/24 History Allergies Allergy/AdvReac Type Severity Reaction Status Date / Time No Known Allergies Allergy Verified 11/06/24 08:32 Surgical - Exam Vital Signs Temp Pulse Resp BP Pulse Ox 97.9 F 98 24 166/129 98 11/05/24 18:29 11/05/24 18:29 11/05/24 18:29 11/05/24 18:29 11/05/24 18:29 Results - Labs 11/06/24 08:14 11/06/24 08:14 Abnormal Lab Results - Last 24 Hours (Table) 11/05/24 11/05/24 11/05/24 Range/Units 18:36 18:36 18:36 WBC 11.6 H (3.8-10.6) k/uL RBC 4.14 L (4.30-5.90) m/uL Hgb 11.8 L (13.0-17.5) gm/dL Hct 35.0 L (39.0-53.0) % Neutrophils # 9.9 H (1.3-7.7) k/uL Lymphocytes # 0.9 L (1.0-4.8) k/uL Sodium 135 L (137-145) mmol/L Potassium 3.1 L (3.5-5.1) mmol/L BUN (9-20) mg/dL Creatinine 0.57 L (0.66-1.25) mg/dL Glucose 184 H (74-99) mg/dL ALT 57 H (4-49) U/L HDL Cholesterol 34.20 L (40.00-60.00) mg/dL Lipase 762 H (23-300) U/L Urine Ketones (Negative) 11/05/24 11/06/24 11/06/24 Range/Units 19:53 08:14 08:14 WBC (3.8-10.6) k/uL RBC 3.95 L (4.30-5.90) m/uL Hgb 11.0 L (13.0-17.5) gm/dL Hct 34.3 L (39.0-53.0) % Neutrophils # 8.8 H (1.3-7.7) k/uL Lymphocytes # 0.5 L (1.0-4.8) k/uL Sodium (137-145) mmol/L Potassium 3.1 L (3.5-5.1) mmol/L BUN 21 H (9-20) mg/dL Creatinine 0.64 L (0.66-1.25) mg/dL Glucose 156 H (74-99) mg/dL ALT 54 H (4-49) U/L HDL Cholesterol (40.00-60.00) mg/dL Lipase 649 H (23-300) U/L Urine Ketones 2+ H (Negative) Diabetes panel 11/05/24 11/05/24 11/06/24 Range/Units 18:36 18:36 08:14 Sodium 135 L 137 (137-145) mmol/L Potassium 3.1 L 3.1 L (3.5-5.1) mmol/L Chloride 98 102 (98-107) mmol/L Carbon Dioxide 25 23 (22-30) mmol/L BUN 19 21 H (9-20) mg/dL Creatinine 0.57 L 0.64 L (0.66-1.25) mg/dL Glucose 184 H 156 H (74-99) mg/dL Calcium 9.9 9.4 (8.4-10.2) mg/dL AST 22 26 (17-59) U/L ALT 57 H 54 H (4-49) U/L Alkaline Phosphatase 111 111 (38-126) U/L Total Protein 6.4 6.4 (6.3-8.2) g/dL Albumin 3.8 3.9 (3.5-5.0) g/dL Triglycerides 105.00 (0.00-149.00) mg/dL HDL Cholesterol 34.20 L (40.00-60.00) mg/dL Calcium panel 11/05/24 11/06/24 Range/Units 18:36 08:14 Calcium 9.9 9.4 (8.4-10.2) mg/dL Albumin 3.8 3.9 (3.5-5.0) g/dL Pituitary panel 11/05/24 11/06/24 Range/Units 18:36 08:14 Sodium 135 L 137 (137-145) mmol/L Potassium 3.1 L 3.1 L (3.5-5.1) mmol/L Chloride 98 102 (98-107) mmol/L Carbon Dioxide 25 23 (22-30) mmol/L BUN 19 21 H (9-20) mg/dL Creatinine 0.57 L 0.64 L (0.66-1.25) mg/dL Glucose 184 H 156 H (74-99) mg/dL Calcium 9.9 9.4 (8.4-10.2) mg/dL Adrenal panel 11/05/24 11/06/24 Range/Units 18:36 08:14 Sodium 135 L 137 (137-145) mmol/L Potassium 3.1 L 3.1 L (3.5-5.1) mmol/L Chloride 98 102 (98-107) mmol/L Carbon Dioxide 25 23 (22-30) mmol/L BUN 19 21 H (9-20) mg/dL Creatinine 0.57 L 0.64 L (0.66-1.25) mg/dL Glucose 184 H 156 H (74-99) mg/dL Calcium 9.9 9.4 (8.4-10.2) mg/dL Total Bilirubin 0.7 0.8 (0.2-1.3) mg/dL AST 22 26 (17-59) U/L ALT 57 H 54 H (4-49) U/L Alkaline Phosphatase 111 111 (38-126) U/L Total Protein 6.4 6.4 (6.3-8.2) g/dL Albumin 3.8 3.9 (3.5-5.0) g/dL
--- NOTE | 2024-11-06 15:02 | NM ---
EXAMINATION TYPE: NM hepatobiliary w CCK DATE OF EXAM: 11/06/2024 COMPARISON: NONE INDICATION: Abdominal pain TECHNIQUE: After the intravenous administration of 5.03 mCi Tc 99m Mebrofenin hepatobiliary scintigra phy is performed. Images were obtained immediately post injection. FINDINGS: There is prompt uptake and excretion of radiotracer by the liver. Extrahepatic ducts are identified at 20 minutes. The gallbladder is visualized within 50 minutes. Small bowel activity is noted within 20 minutes. At one hour 8 ounces of oral ensure plus is given to mimic CCK and gallbladder ejection fraction is c alculated at 14 %, which is low. (Normal >35% and <80%.). IMPRESSION: 1. Correlate for biliary hypokinesia [facility], , 11/06/2024 2:59 PM
[2024-11-06] MEDS: HYDROmorphone 0.5 MG/0.5 ML SYRINGE IVP PRN (16:33)
[2024-11-06] MEDS: POTASSIUM CHLORIDE ER 20 MEQ TAB.ER PO STA (16:46)
[2024-11-06] MEDS ORDERED: BUDESONIDE INHALATION PRN (18:47)
[2024-11-06] MEDS ORDERED: ALBUTEROL SULFATE INHALATION PRN (18:47)
[2024-11-06] MEDS: HYDROcodone/APAP 7.5-325MG 1 EACH TAB PO PRN (19:10)
[2024-11-06] MEDS: METOPROLOL TARTRATE 50 MG TAB PO SCH (20:33)
[2024-11-06] MEDS: IPRATROPIUM-ALBUTEROL 3 ML NEB INHALATION SCH (20:39)
--- NOTE | 2024-11-06 20:59 | HP ---
HISTORY AND PHYSICAL HISTORY OF PRESENT ILLNESS: The patient came into the hospital with acute on chronic pancreatitis, had a HIDA scan that shows correlate for biliary dyskinesia; ejection is 14%. Most likely, he has gallbladder dyskinesia causing cholecystitis, causing pancreatitis. He has a history of atrial fibrillation, hypertension, and not on any anticoagulation. LFTs are normal. Afebrile. PAST MEDICAL HISTORY: AFib, hypertension, chronic back pain. HOME MEDICINES: 1. Lopressor 50 b.i.d. 2. Albuterol 2 puffs q.4 hours p.r.n. 3. b.i.d. 4. Terazosin 10 b.i.d. 5. Cyclobenzaprine 10 t.i.d. 6. Sildenafil 50 daily. 7. [place] 7.5 t.i.d. 8. Cozaar 50 mg daily. 9. Prilosec 40 daily. 10.Aldactone 25 daily. ALLERGIES: Negative. PHYSICAL EXAMINATION: VITAL SIGNS: Blood pressure 150s to 130s over 90s to 80s, O2 97 to 98, temp 97.9. GENERAL: He is disheveled and dehydrated. SKIN: Dry. HEART: Regular rate and rhythm. LUNGS: Equal expansion. Normal respiratory effort. ABDOMEN: Soft. EXTREMITIES: No cyanosis, clubbing, edema. LABORATORY DATA: White blood cell count 7.3, hemoglobin is 11. Potassium is low at 3.1, sodium 137, BUN is 21, creatinine 0.64. UA has 2+ ketones, just dehydration and pancreatitis. ASSESSMENT: 1. Acute on chronic abdominal pain. 2. Cholecystitis, biliary dyskinesia with possible cholecystitis. Gallbladder surgery will be needed. 3. Degenerative disk disease. 4. Chronic obstructive pulmonary disease. 5. Gastroesophageal reflux disease. Continue current medicines. Possible surgical removal of gallbladder for poor ejection fraction on HIDA scan. Prognosis is guarded. Resume home meds. MMODL / IJN: [id number] /
[2024-11-06] MEDS: CYCLOBENZAPRINE 10 MG TAB PO SCH (21:43)
[2024-11-06] MEDS: DOXAZOSIN 4 MG TAB PO SCH (21:43)
[2024-11-07 03:01] LABS: Basophils % (A) 0 %; Eosinophils # (A) 0.4 k/uL (0-0.7); Eosinophils % (A) 4 %; Lymphocytes % (A) 10 %; MCH 28.5 pg (25.0-35.0); MCHC 32.3 g/dL (31.0-37.0); Monocytes # (A) 0.7 k/uL (0-1.0); Monocytes % (A) 7 %; Neutrophils # (A) 7.1 k/uL (1.3-7.7); Neutrophils % (A) 76 %; Platelet Count 283 k/uL (150-450); RBC 3.87 m/uL (4.30-5.90); RDW 12.7 % (11.5-15.5); WBC 9.3 k/uL (3.8-10.6)
[2024-11-07 03:19] LABS: ALT 63 U/L (4-49); AST 63 U/L (17-59); African American GFR (CKD) >90 (>60 ml/min/1.73 sqM); Alkaline Phosphatase 100 U/L (38-126); Anion Gap 13 mmol/L; Blood Urea Nitrogen 30 mg/dL (9-20); Calcium 9.6 mg/dL (8.4-10.2); Carbon Dioxide 24 mmol/L (22-30); Chloride 102 mmol/L (98-107); Glucose 117 mg/dL (74-99); Lipase 508 U/L (23-300); Magnesium 1.8 mg/dL (1.6-2.3); Non-African American GFR(CKD) >90 (>60 ml/min/1.73 sqM); Potassium 3.5 mmol/L (3.5-5.1); Sodium 139 mmol/L (137-145); Total Bilirubin 0.7 mg/dL (0.2-1.3); Total Protein 6.7 g/dL (6.3-8.2)
[2024-11-07] MEDS ORDERED: NON FORMULARY DRUG (Omeprazole 40 MG Capsule.Dr) PO SCH (09:00)
[2024-11-07] MEDS: LOSARTAN 50 MG TAB PO SCH (09:34)
[2024-11-07] MEDS: ASPIRIN 325 MG TAB PO SCH (09:34)
[2024-11-07] MEDS: SPIRONOLACTONE 25 MG TAB PO SCH (09:34)
[2024-11-07] MEDS: NON FORMULARY DRUG (Sildenafil Citrate [Sildenafil Citrate] 50 MG Tablet) PO SCH (09:40)
[2024-11-07] MEDS: hydroCHLOROthiazide 25 MG TAB PO SCH (09:42)
--- NOTE | 2024-11-07 09:59 | P.PN ---
Subjective Progress Note Date: 11/07/24 SURGICAL PROGRESS NOTE CHIEF COMPLAINT: Pancreatitis HISTORY OF PRESENT ILLNESS: Patient reports abdominal pain is starting to improve. He rates the pain about a 5 out of 10. He had a HIDA scan completed yesterday that did report an EF of 14% and correlate for biliary hypokinesia. Afebrile. WBC is 9.3 lipase is trending down to 508 total bili 0.7 AST 26 up to 63 and ALT 54 up to 63 alk phos 100 PHYSICAL EXAM: VITAL SIGNS: Reviewed. GENERAL: Well-developed in no acute distress. ABDOMEN: Soft. Nondistended. Mild epigastric tenderness NEUROLOGIC: Alert and oriented. Cranial nerves II through XII grossly intact. ASSESSMENT: 1. Acute pancreatitis resolving 2. 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 Signing provider agrees with the documented findings, assessment, and plan of care. Objective - Vital Signs Vital signs: Vital Signs Temp 98.0 F 11/07/24 07:20 Pulse 95 11/07/24 09:49 Resp 18 11/07/24 07:20 BP 126/79 11/07/24 07:20 Pulse Ox 95 11/07/24 09:42 FiO2 Intake & Output 11/06/24 11/07/24 11/07/24 18:59 06:59 18:59 Weight 113.398 kg Other: Voiding Method Toilet # Voids 1 - Labs CBC & Chem 7: 11/07/24 02:21 11/07/24 02:21 Labs: Abnormal Lab Results - Last 24 Hours (Table) 11/07/24 11/07/24 Range/Units 02:21 02:21 RBC 3.87 L (4.30-5.90) m/uL Hgb 11.0 L (13.0-17.5) gm/dL Hct 34.0 L (39.0-53.0) % BUN 30 H (9-20) mg/dL Glucose 117 H (74-99) mg/dL AST 63 H (17-59) U/L ALT 63 H (4-49) U/L Lipase 508 H (23-300) U/L
--- NOTE | 2024-11-07 12:05 | P.PN ---
Subjective Progress Note Date: 11/07/24 Principal diagnosis: Pancreatitis This a pleasant 64-year-old male who presented to the emergency department yesterday evening. States that the pain started 2 to 3 days ago progressively got worse. He had nausea and vomiting the other night but none since then. Pain is mostly mid abdomen. He had workup for his abdominal pain with findings of elevated lipase and a CT of the abdomen pelvis with acute pancreatitis. Gastroenterology was consulted for pancreatitis. Patient denies any previous history of pancreatitis. Denies any regular alcohol consumption, no previous h istory of gallbladder disease. He denies any new medications. Past medical history includes atrial fibrillation and hypertension, he is not on any anticoagulation. LFTs are unremarkable. Mild leukocytosis on admission. He has been afebrile. He states that he has chronic back pain which is bothering him as well however this pain is separate less and still has significant pain in the upper abdomen. To 2825 Patient seen and examined today as a follow-up for pancreatitis. States abdominal pain is improving. No nausea or vomiting. 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 General surgery following. No leukocytosis total bilirubin 0.7 AST 63 ALT 63 alkaline phosphatase 100 lipase continues to improve and is 508. Objective - Vital Signs Vital signs: Vital Signs Temp 98.0 F 11/07/24 07:20 Pulse 95 11/07/24 09:49 Resp 18 11/07/24 07:20 BP 126/79 11/07/24 07:20 Pulse Ox 95 11/07/24 09:42 FiO2 Intake & Output 11/06/24 11/07/24 11/07/24 18:59 06:59 18:59 Weight 113.398 kg Other: Voiding Method Toilet # Voids 1 - Labs CBC & Chem 7: 11/07/24 02:21 11/07/24 02:21 Labs: Abnormal Lab Results - Last 24 Hours (Table) 11/07/24 11/07/24 Range/Units 02:21 02:21 RBC 3.87 L (4.30-5.90) m/uL Hgb 11.0 L (13.0-17.5) gm/dL Hct 34.0 L (39.0-53.0) % BUN 30 H (9-20) mg/dL Glucose 117 H (74-99) mg/dL AST 63 H (17-59) U/L ALT 63 H (4-49) U/L Lipase 508 H (23-300) U/L Assessment and Plan (1) Pancreatitis Narrative/Plan: 64-year-old male presenting with abdominal pain elevated lipase and CT evidence of acute mild to moderate uncomplicated pancreatitis. Gallbladder wall distended, mildly dilated CBD 0.9 cm however no gallstones noted on CT or abdominal ultrasound. Unclear etiology of pancreatitis. This is patient's first episode with no reported history of heavy alcohol use, no new medications no family history of pancreatitis and does not appear to be a gallstone pancreatitis. Total bilirubin and LFTs are unremarkable. General surgery is following and a HIDA scan has been ordered. 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 Will defer to general surgery. Pancreatitis improving. No indication for any CBD dilation or obstruction. No further workup at this time from gastroenterology. Current Visit: Yes Status: Acute Code(s): K85.90 - ACUTE PANCREATITIS WITHOUT NECROSIS OR INFECTION, UNSP SNOMED Code(s): 56187461 (2) Abdominal pain Current Visit: Yes Status: Acute Code(s): R10.9 - UNSPECIFIED ABDOMINAL PAIN SNOMED Code(s): 31293012 (3) Chronic back pain Current Visit: Yes Status: Acute Code(s): M54.9 - DORSALGIA, UNSPECIFIED; G89.29 - OTHER CHRONIC PAIN SNOMED Code(s): 610198871 Plan: 1. Continue symptomatic and supportive care 2. Diet as tolerated 3. Pain medication as needed 4. Antiemetics as needed 5. Protonix 40 mg daily for GI prophylaxis 6. There is no indication for any gastroenterology intervention. No further workup per gastroenterology. 7. Continue with recommendations from general surgery Thank you for this consultation, we will sign off at this time. Dr. Jose Live I agree with the dictator's note, documented as a scribe by Selene Og.
[2024-11-07 20:59] VITALS: RESP 17
--- NOTE | 2024-11-08 02:41 | PN ---
PROGRESS NOTE SUBJECTIVE: He came in with cholecystitis as well as pancreatitis. Pancreatic enzyme levels down to 500 today. Clear liquid diet, being treated for cholecystitis. Prognosis guarded. Ambulate as tolerated. MEDICATIONS: Home medications have been reordered. OBJECTIVE: CARDIOVASCULAR: S1, S2. LUNGS: Transmitted upper sounds. VITAL SIGNS: Temperature 97.9, pulse 105, blood pressure 150/83, O2 of 98% on room air. GI: Tenderness to palpation in right upper quadrant. PLAN: Monitor amylase and lipase. Prognosis guarded. Follow up in the next 24 to 48 hours. Continue broad-spectrum antibiotics. Clear liquid diet. MMODL / IJN: [id number] /
[2024-11-08 10:25] LABS: ALT 66 U/L (10-49); AST 63 U/L (14-35); Albumin 3.5 g/dL (3.8-4.9); Albumin/Globulin Ratio 1.67 Ratio (1.60-3.17); Alkaline Phosphatase 93 U/L (41-126); BUN/Creat Ratio 24.14 Ratio (12.00-20.00); Blood Urea Nitrogen 16.9 mg/dL (9.0-27.0); Calcium 8.9 mg/dL (8.7-10.3); Carbon Dioxide 22.8 mmol/L (21.6-31.8); Chloride 104 mmol/L (96-109); Globulin 2.1 g/dL (1.6-3.3); Glucose 147 mg/dL (70-110); Lipase 75 U/L (14-60); Potassium 3.2 mmol/L (3.5-5.5); Sodium 138 mmol/L (135-145); Total Bilirubin 0.3 mg/dL (0.3-1.2); Total Protein 5.6 g/dL (6.2-8.2)
[2024-11-08] MEDS: HYDROmorphone 1 MG/ML 1 ML SYRINGE IM STA (11:10)
[2024-11-08 11:20] LABS: Basophils # (A) 0.04 X 10*3/uL (0.00-0.10); Basophils % (A) 0.5 %; Eosinophils # (A) 0.44 X 10*3/uL (0.04-0.35); Eosinophils % (A) 5.3 %; HCT 28.2 % (39.6-50.0); HGB 9.4 g/dL (13.0-17.0); Lymphocytes # (A) 0.95 X 10*3/uL (0.90-5.00); Lymphocytes % (A) 11.5 %; MCH 28.7 pg (27.0-32.0); MCHC 33.3 g/dL (32.0-37.0); Mean Platelet Volume 11.2 FL (9.5-12.2); Monocytes # (A) 0.71 X 10*3/uL (0.20-1.00); Monocytes % (A) 8.6 %; NRBC Per 100 WBC 0 X 10*3/uL (0.00-0.01); Neutrophils # (A) 6.08 X 10*3/uL (1.80-7.70); Neutrophils % (A) 73.5 %; Platelet Count 261 X 10*3/uL (140-440); RBC 3.28 X 10*6/uL (4.40-5.60); RDW 13.1 % (11.5-14.5); WBC 8.27 X 10*3/uL (4.50-10.00)
[2024-11-08 14:41] VITALS: BP 131/77; PULSE 89; TEMP 97.9
--- NOTE | 2024-11-08 15:33 | P.PN ---
Subjective Progress Note Date: 11/08/24 CHIEF COMPLAINT: Cholecystitis HISTORY OF PRESENT ILLNESS: The patient is a 64-year-old male admitted for nausea and vomiting including gallbladder disorder. Patient had HIDA scan demonstrating bili dyskinesia. He has been able to tolerate textured food. at bedside. Patient had pre-existing cardiac risk assessment over 1 month ago ejection fractions over 50%. Patient is eager to be discharged. ROS: No reports of nausea and vomiting. No bowel movements. No fevers or chills. No new chest pain. No productive sputum PHYSICAL EXAM: VITAL SIGNS: Reviewed CONSTITUTIONAL: Well developed and in no acute distress. EYES: Conjuctivae without sclera icterus. Extraocular movements grossly intact. HEAD, EARS, NOSE, THROAT: Moist buccal mucosa. Head is atraumatic, normocephalic. Hears conversational speech. No nasal drainage. RESPIRATORY: Non-labored respirations and equal bilateral excursions. CARDIOVASCULAR: Palpable 2+ radial pulses. ABDOMEN: Nontender. MUSCULOSKELETAL: No gross deformity of the lower extremities noted. No clubbing. No cyanosis. SKIN: Good skin turgor. Well perfused. NEUROLOGIC: Cranial nerves II through XII grossly intact. No focal or lateralizing signs. PSYCH: Appropriate affect. Alert and oriented to person, place and time. REPORT: Echo report from September 2024 reviewed demonstrate ejection fraction over 50%. CLINICAL LABS: Reviewed. LFTs mildly elevated. Total bilirubin normal. WBC normal. Lipase 75, minimally elevated RADIOLOGY: HIDA scan independent reviewed demonstrate ejection fraction less than 20%. Correlate for biliary dyskinesia. ASSESSMENT: 1. Biliary dyskinesia or chronic cholecystitis 2. Acute pancreatitis PLAN: 1. Clinically, patient tolerated diet. 2. Extensive discussion including avoiding high-fat foods described. Low-fat diet and menu reviewed. 3. Outpatient cholecystectomy reviewed. Objective - Vital Signs Vital signs: Vital Signs Temp 97.9 F 11/08/24 14:40 Pulse 89 11/08/24 14:40 Resp 17 11/08/24 14:40 BP 131/77 11/08/24 14:40 Pulse Ox 95 11/08/24 14:40 FiO2 Intake & Output 11/07/24 11/08/24 11/08/24 18:59 06:59 18:59 Other: Voiding Method Toilet Toilet # Voids 2 4 - Labs CBC & Chem 7: 11/08/24 03:56 11/08/24 03:56 Labs: Abnormal Lab Results - Last 24 Hours (Table) 11/08/24 11/08/24 Range/Units 03:56 03:56 RBC 3.28 L (4.40-5.60) X 10*6/uL Hgb 9.4 L (13.0-17.0) g/dL Hct 28.2 L (39.6-50.0) % Immature Gran # 0.05 H (0.00-0.04) X 10*3/uL Eosinophils # 0.44 H (0.04-0.35) X 10*3/uL Potassium 3.2 L (3.5-5.5) mmol/L BUN/Creatinine Ratio 24.14 H (12.00-20.00) Ratio Glucose 147 H (70-110) mg/dL AST 63 H (14-35) U/L ALT 66 H (10-49) U/L Total Protein 5.6 L (6.2-8.2) g/dL Albumin 3.5 L (3.8-4.9) g/dL Lipase 75 H (14-60) U/L
[2024-11-08] MEDS ORDERED: SYMBICORT 160-4.5 MCG INHALER INHALATION SCH (20:00)
[2024-11-09] MEDS ORDERED: TIOTROPIUM 2.5 MCG INHALER INHALATION SCH (08:00)
--- NOTE | 2024-11-09 09:12 | P.PN ---
Progress Note - Text Progress Note Date: 11/09/24 Called family per request of Dr Milian for follow up with him as outpatient. Family notified.
== END 2024-11-08 15:47 | disposition home or self-care (01) ==
LOC: EC 17:35 → 6NMEDSUR 21:24 → 1SOBS 11-06 18:43 → 6NMEDSUR 11-07 18:52
PROVIDERS: ADMIT Family Medicine; ATTEND Family Medicine
DX: K85.90 Acute pancreatitis without necrosis or infection, unspecified (principal); K81.9 Cholecystitis, unspecified; K82.8 Other specified diseases of gallbladder; I10 Essential (primary) hypertension; I48.91 Unspecified atrial fibrillation; J44.9 Chronic obstructive pulmonary disease, unspecified; G89.29 Other chronic pain; M54.9 Dorsalgia, unspecified; K21.9 Gastro-esophageal reflux disease without esophagitis; Z87.11 Personal history of peptic ulcer disease; Z87.891 Personal history of nicotine dependence; Z79.82 Long term (current) use of aspirin; Z79.899 Other long term (current) drug therapy
CPT/HCPCS: 96376 ×6; 96361; 96366 ×3; 96372; 96367; 96365; 96374; 96375 ×2; 99285; 36415; 94640 ×4; 94760; 93005; 80061; 80053 ×4; 82150; 83605; 83690 ×4; 83735; 84484; 85025 ×4; 81003; 76705; 74177; 78227; G0378 ×4; A9537; J0780; J2765; J3480; J2405; J2805; J0696 ×3; J1171 ×5; J1885 ×3; Q9967; J2470 ×3

== ENCOUNTER 2024-11-21 10:31 | Day surgery (SDC) | payer MEDICARE ==
[~2024-11-21 10:31] MED LIST: SCOPOLAMINE 1 MG/72 HR PATCH TRANSDERM ONE
[2024-11-21] MEDS: INDOCYANINE GREEN 25 MG VIAL IV PRN (11:14)
[2024-11-21] MEDS: LACTATED RINGERS 1,000 ML IV SCH (11:14)
[2024-11-21 11:26] LABS: HCT 37.6 % (39.0-53.0); HGB 12.6 gm/dL (13.0-17.5); MCH 28.6 pg (25.0-35.0); MCHC 33.4 g/dL (31.0-37.0); MCV 85.5 fL (80.0-100.0); Mean Platelet Volume 7.9; Platelet Count 309 k/uL (150-450); RDW 13.4 % (11.5-15.5); WBC 9.6 k/uL (3.8-10.6)
[2024-11-21] MEDS: ONDANSETRON 4 MG/2 ML VIAL IVP ONE (11:34)
[2024-11-21] MEDS: HEPARIN SODIUM,PORCINE 5,000 UNIT/ML 1 ML VIAL SQ PRN (11:34)
[2024-11-21] MEDS: DEXAMETHASONE SOD PHOSPHATE 4 MG/ML 1 ML VIAL IV ONE (11:34)
[2024-11-21] MEDS: IV FLUID CONTINUATION 1,000 ML IV ONE (11:39)
[2024-11-21 12:30] LABS: ALT 40 U/L (4-49); AST 24 U/L (17-59); African American GFR (CKD) >90 (>60 ml/min/1.73 sqM); Albumin 4.2 g/dL (3.5-5.0); Alkaline Phosphatase 124 U/L (38-126); Anion Gap 10 mmol/L; Blood Urea Nitrogen 22 mg/dL (9-20); Calcium 9.8 mg/dL (8.4-10.2); Carbon Dioxide 24 mmol/L (22-30); Chloride 98 mmol/L (98-107); Glucose 143 mg/dL (74-99); Non-African American GFR(CKD) >90 (>60 ml/min/1.73 sqM); Potassium 3.6 mmol/L (3.5-5.1); Sodium 132 mmol/L (137-145); Total Bilirubin 0.5 mg/dL (0.2-1.3); Total Protein 6.8 g/dL (6.3-8.2)
[2024-11-21] MEDS: MIDAZOLAM 2 MG/2 ML VIAL IV PRN (12:39)
[2024-11-21] MEDS ORDERED: NEOSTIGMINE 1 MG/ML 10 ML VIAL ONE (13:09)
[2024-11-21] MEDS ORDERED: PROPOFOL 10 MG/ML 20 ML VIAL IV ONE (13:09)
[2024-11-21] MEDS ORDERED: SUCCINYLCHOLINE CHLORIDE 200 MG/10 ML VIAL IV ONE (13:09)
[2024-11-21] MEDS ORDERED: LIDOCAINE 4% LTA KIT (4 ML) TOPICAL ONE (13:09)
[2024-11-21] MEDS ORDERED: LIDOCAINE 1% INJ 10MG/ML (20 ML MDV) ONE (13:09)
[2024-11-21] MEDS ORDERED: HYDROmorphone (PF) 1 MG/ML ONE (13:09)
[2024-11-21] MEDS ORDERED: GLYCOPYRROLATE 0.2 MG/ML 2 ML VIAL ONE (13:09)
[2024-11-21] MEDS ORDERED: fentaNYL (PF) 50 MCG/ML 2 ML AMP ONE (13:09)
[2024-11-21] MEDS ORDERED: MIDAZOLAM 2 MG/2 ML VIAL ONE (13:09)
[2024-11-21] MEDS ORDERED: ROCURONIUM 10 MG/ML (5 ML VIAL) IV ONE (13:09)
[2024-11-21] MEDS ORDERED: PHENYLEPHRINE 10 MG/ML VIAL ONE (13:09)
[2024-11-21] MEDS: LIDOCAINE 1%-EPI 1:100,000 20 ML VIAL SQ ONE (13:25)
--- NOTE | 2024-11-21 14:21 | P.OP ---
Date of Procedure: 11/21/24 Preoperative Diagnosis: Biliary dyskinesia Chronic cholecystitis Postoperative Diagnosis: Biliary dyskinesia Chronic cholecystitis Procedure(s) Performed: Robotic cholecystectomy Anesthesia: JESSICA Surgeon: Gabriel Nash Pathology: other (Gallbladder and contents) Condition: stable Disposition: same day Indications for Procedure: 64-year-old male presents to the surgery clinic with complaint of significant epigastric and right upper quadrant pain and inability to tolerate oral intake. On workup he is found to have biliary dyskinesia and chronic cholecystitis with ejection fraction of 18% on HIDA scan. Plan is for robotic cholecystectomy. Risks and benefits and alternatives were provided to the patient. All questions answered prior to the operating suite. Operative Findings: Significantly distended gallbladder Description of Procedure: Patient was brought to the operative suite and placed in supine position on the operating table. Sedation was provided by anesthesia patient underwent endotracheal intubation. He was then prepped and draped in regular sterile fashion. Infraumbilical incision was made and dissection was carried to the fascia. The fascia was incised and an 8 mm trocar was placed. Pneumoperitoneum was achieved. 2 additional 8 mm trocars placed in the right upper quadrant and 1 was placed in the left upper quadrant. Robot was then docked. The gallbladder was noted to be quite distended. It was retracted superiorly and laterally and dissection was carried along the infundibulum towards the cystic duct. The cystic duct was skeletonized and similarly the cystic artery was skeletonized. Critical view was obtained. ICG was used to confirm anatomy. 2 clips were placed proximally on the cystic duct and 1 was placed distally and the cystic duct was ligated. Similarly, 2 clips placed proximally and the cystic artery 1 was placed distally and the cystic artery ligated. Cautery was then used to dissect the gallbladder off of the gallbladder fossa. Hemostasis was maintained. The gallbladder was placed in Endo Catch bag removed from the abdomen. Robot was undocked. Irrigation was placed in the right upper quadrant and suction. No evidence of bleeding and no evidence of bile leakage was noted. The infraumbilical fascial incision site was then closed with 0 Vicryl suture under direct visualization using a Linquet device. Pneumoperitoneum was released and all ports removed from the abdomen. All incision sites were closed with 4-0 Monocryl suture. Sterile dressing was applied. The patient was awakened in the operating suite and taken to postanesthesia care in stable condition.
[2024-11-21 14:37] VITALS: TEMP 97.8
[2024-11-21] MEDS: HYDROmorphone 0.5 MG/0.5 ML SYRINGE IVP PRN (14:44)
[2024-11-21 15:57] VITALS: RESP 18
[2024-11-21] MEDS: HYDROcodone/APAP 7.5-325MG 1 EACH TAB PO ONE (16:03)
[2024-11-21 17:16] VITALS: BP 120/78; PULSE 88
== END 2024-11-21 17:17 | disposition home or self-care (01) ==
LOC: OR 10:31
PROVIDERS: ATTEND Surgery
DX: K81.1 Chronic cholecystitis (principal); I10 Essential (primary) hypertension; I48.91 Unspecified atrial fibrillation; N40.0 Benign prostatic hyperplasia without lower urinary tract symptoms; Z79.51 Long term (current) use of inhaled steroids; Z79.82 Long term (current) use of aspirin; Z79.899 Other long term (current) drug therapy; Z90.49 Acquired absence of other specified parts of digestive tract
CPT/HCPCS: 47562; 88304; 80053; 85027; J2250; J0330; J1644; J1100; J2710; J0690; J2405; J2003; J3010; J1171 ×2; J2704; J2371; J1596

== ENCOUNTER → 2025-01-14 | Outpatient (CLI) | payer MEDICARE ==
--- NOTE | 2025-01-14 11:01 | MR ---
EXAMINATION TYPE: MR lumbar spine wo con DATE OF EXAM: 01/14/2025 COMPARISON: MRI lumbar spine July 15, 2024 HISTORY: Increased low back pain TECHNIQUE: Multiplanar, multisequence imaging of the lumbar spine is performed without IV contrast. FINDINGS: Sagittal images of the lumbar spine show vertebral body heights to remain satisfactory. Sta ble grade 1 anterolisthesis of L4 on L5. Persistent disc desiccation with mild disc space narrowing a t L1-L2 level. Persistent disc desiccation with mild disc space narrowing at L4-5 level. Persistent m oderate to severe disc space narrowing at L5-S1 level . The conus medullaris remains normal in positi on and signal ending at mid L1 level. The bone marrow signal intensity is within normal limits. Axial images at T12-L1 level remain within normal limits. Axial images at L1-L2 level demonstrate mild to moderate broad disc bulge mildly effacing the anterio r thecal sac and mild/moderate facet arthropathy bilaterally. Bilateral neural foramina are patent. Axial images at L2-L3 level shows moderate broad-based disc bulge effacing the anterior thecal sac an d moderate facet arthropathy and ligament flavum hypertrophy effacing the bilateral thecal sac. There is [id number] bilateral neural foraminal narrowing. Axial images at the L3-L4 level showed mild/moderate facet arthropathy and ligamentum flavum hypertro phy effacing the posterior lateral thecal sac. There is mild bilateral anterior inferior neural lake inal narrowing seen. Axial images at the L4-L5 level shows spondylolisthesis with moderate to advanced facet arthropathy a nd ligamentum flavum hypertrophy effacing the posterior left thecal sac bilaterally. There is mild-to -moderate broad disc bulge with central disc protrusion effacing the anterior thecal sac. There is mo derate bilateral neural foraminal narrowing seen. Axial images at L5-S1 level show moderate to advanced facet arthropathy bilaterally. Spinal canal is preserved. There is moderate to severe left and mild right-sided neural foraminal narrowing redemonst rated. Paraspinal muscle bulk is preserved. IMPRESSION: Multilevel degenerative changes in the lumbar spine most prominent at L2-L3 and L4-L5 lev els as detailed above are redemonstrated. [facility], , 01/14/2025 10:59 AM
== END | disposition home or self-care (01) ==
LOC: RADMRIMAIN 10:12
PROVIDERS: ATTEND Orthopaedic Surgery
DX: M51.16 Intervertebral disc disorders with radiculopathy, lumbar region (principal); M47.26 Other spondylosis with radiculopathy, lumbar region; M43.26 Fusion of spine, lumbar region
CPT/HCPCS: 72148

== ENCOUNTER → 2025-01-15 | Outpatient (CLI) | payer MEDICARE ==
--- NOTE | 2025-01-15 15:54 | CT ---
EXAMINATION TYPE: CT lumbar spine wo con DATE OF EXAM: 01/15/2025 3:10 PM COMPARISON: None CLINICAL INDICATION: Male, 64 years old with history of M47.26 SPONDYLOSIS WITH RADICULOPATHY M43.26; PHH, Lower back pain x years. TECHNIQUE: Unenhanced CT of the lumbar spine was performed. Bone and soft tissue window settings are submitted as well as coronal and sagittal reconstructions. CT DLP: 1629.[address] CTDI: mGy Automated exposure control for dose reduction was used. FINDINGS: The lumbar vertebral segments are normal in height and there is no acute fracture. There is a grade 1 anterolisthesis of L4 on L5. There is vacuum phenomenon but no significant disc space narrowing in the bowel to 3 disc indicating mild degenerative disease. There is moderate disc space narrowing and vacuum phenomenon in the L4-5 d isc with moderate degenerative disease. There is severe disc space narrowing at the L5-S1 level indic ating severe degenerative disease. There is mild arthropathy of facet joints at the L2-3 level, moderate arthropathy at the facet joints at the L3-4 level and moderate to marked arthropathy at the L4-5 and L5-S1 levels. There is mild art hropathy of the SI joints. There are no large disc herniations. Secondary to facet arthropathy, thickening ligamentum flavum and circumferential disc bulge, there i s moderate spinal stenosis at the L2-3 level, mild spinal stenosis at the L3-4 level and severe spina l stenosis at the L4-5 level. IMPRESSION: 1. Multilevel degenerative disc disease as described above. 2. Grade 1 anterolisthesis of L4 on L5. 3. Multilevel spinal stenosis, moderate at L2-3, mild at L3-4 and severe at L4-5 levels 4. No large disc herniations. 5. Multilevel facet arthropathy greatest in the lower lumbar spine at L4-5 and L5-S1 levels. [facility], , 01/15/2025 3:52 PM
== END | disposition home or self-care (01) ==
LOC: RADCTMAIN 14:48
PROVIDERS: ATTEND Orthopaedic Surgery
DX: M48.061 Spinal stenosis, lumbar region without neurogenic claudication (principal); M51.16 Intervertebral disc disorders with radiculopathy, lumbar region; M43.26 Fusion of spine, lumbar region; M47.27 Other spondylosis with radiculopathy, lumbosacral region; M43.16 Spondylolisthesis, lumbar region
CPT/HCPCS: 72131

== ENCOUNTER 2025-02-15 11:37 | Observation (INO) | payer MEDICARE ==
--- NOTE | 2025-02-15 12:24 | ED ---
General Adult HPI - General Chief complaint: Back Pain/Injury Stated complaint: Severe pain Time Seen by Provider: 02/15/25 12:14 Source: patient, family Mode of arrival: wheelchair Limitations: no limitations - History of Present Illness Initial comments: Patient presents to the ED with his for evaluation. states that the patient was diagnosed with a pancreatic mass 11 days ago, and he had a biopsy performed with biliary stent placement at [facility] 9 days ago. Patient states that he has been having diffuse lumbar back pain ever since then, but he states that his back pain became acutely worse this morning. Patient rates his pain as 10/10 at this time. Patient admits to having associated nausea as well. Patient also admits to having mild epigastric abdominal pain. Patient denies any known trauma or injury, fever or chills, headache, focal numbness/weakness/neuro deficit, chest pain, dyspnea, dizziness, vomiting, yves rrhea or constipation, bloody or melanotic stool, dysuria/hematuria/urinary frequency/urinary symptoms, leg pain, incontinence or urinary retention, or any other symptoms or complaints. states that she has been giving the patient his oxycodone for his pain, and she states that she last gave him a dose at about 6 AM this morning. - Related Data Home Medications Medication Instructions Recorded Confirmed Cyclobenzaprine HCl 10 mg PO TID 12/05/18 02/04/25 Terazosin HCl 10 mg PO BID 12/05/18 02/04/25 hydroCHLOROthiazide [Hydrodiuril] 25 mg PO DAILY 12/05/18 02/04/25 Albuterol Sulfate/Budesonide 2 puff INHALATION RT-Q4H PRN 11/06/24 02/04/25 [Airsupra 90-80 Mcg Inhaler] Budesonide/Glycopyr/Formoterol 2 puff INHALATION RT-BID 11/06/24 02/04/25 [Breztri Aerosphere Inhaler] Ibuprofen [Motrin] 800 mg PO BID 11/06/24 02/04/25 Losartan [Cozaar] 50 mg PO DAILY 11/06/24 02/04/25 Omeprazole [PriLOSEC] 40 mg PO HS 11/06/24 02/04/25 Sildenafil Citrate 50 mg PO DAILY 11/06/24 02/04/25 Aspirin EC [Ecotrin Low Dose] 81 mg PO DAILY@1600 02/15/25 02/15/25 DULoxetine HCL [Cymbalta] 30 mg PO DAILY@0800 02/15/25 02/15/25 Gabapentin [Neurontin] 300 mg PO HS@199902/15/25 02/15/25 Metoprolol Tartrate [Lopressor] 50 mg PO BID@0800,199902/15/25 02/15/25 Pantoprazole Sodium [Protonix] 40 mg PO BID@0800,199902/15/25 02/15/25 Spironolactone [Aldactone] 50 mg PO DAILY@0800 02/15/25 02/15/25 oxyCODONE HCL [oxyCODONE HCL (IR)] 15 mg PO Q4H 02/15/25 02/15/25 ursodioL [Ursodiol] 300 mg PO BID@0800,199902/15/25 02/15/25 Allergies Allergy/AdvReac Type Severity Reaction Status Date / Time pregabalin [From Lyrica] AdvReac AMS Verified 02/15/25 15:46 Review of Systems ROS Statement: Those systems with pertinent positive or pertinent negative responses have been documented in the HPI. ROS Other: All systems not noted in ROS Statement are negative. Past Medical History Past Medical History: Atrial Fibrillation, COPD, Hypertension, Prostate Disorder Additional Past Medical History / Comment(s): Chronic back pain, BPH, recent hospitalization cholecystitis, acute pancreatitis 11/05/24 - 11/08/24 History of Any Multi-Drug Resistant Organisms: None Reported Past Surgical History: Hernia Repair, Orthopedic Surgery, Tonsillectomy Additional Past Surgical History / Comment(s): Rt. carpal tunnel release, bilateral inguinal hernia repair, colonoscopy Past Anesthesia/Blood Transfusion Reactions: No Reported Reaction Additional Past Anesthesia/Blood Transfusion Reaction / Comment(s): n/a Past Psychological History: No Psychological Hx Reported Smoking Status: Former smoker Past Alcohol Use History: Rare Past Drug Use History: None Reported - Past Family History Father Additional Family Medical History / Comment(s): Father of a lung infection after a lung biopsy. Mother Family Medical History: Dementia, Diabetes Mellitus Additional Family Medical History / Comment(s): Mother is . General Exam Limitations: no limitations General appearance: alert Head exam: Present: atraumatic Eye exam: Present: PERRL ENT exam: Present: mucous membranes moist Neck exam: Present: other (Trachea is in midline) Respiratory exam: Present: normal lung sounds bilaterally. Absent: respiratory distress, wheezes, rales, rhonchi, stridor Cardiovascular Exam: Present: regular rate, normal rhythm, normal heart sounds, other (Normal radial pulses bilaterally) GI/Abdominal exam: Present: soft, other (Mild epigastric abdominal tenderness). Absent: distended, guarding, rebound Extremities exam: Absent: tenderness, pedal edema, calf tenderness Back exam: Present: other (Diffuse lumbar tenderness) Neurological exam: Present: alert, oriented X3, other (No evidence of lower extremity neurological deficit or saddle anesthesia on exam). Absent: motor sensory deficit Psychiatric exam: Present: normal affect Skin exam: Present: warm, dry Course Vital Signs 02/15/25 11:39 Temperature 97.6 F Pulse Rate 68 Respiratory 18 Rate Blood Pressure 109/64 O2 Sat by Pulse 95 Oximetry - Reevaluation(s) Reevaluation #1: 02/15/25 15:03 Patient states that his pain has improved with ED management, but he still rates his pain as 8/10 in severity. Patient denies development of any new symptoms while in the ED. Patient and are aware the patient's test results. They both agree with hospital admission at this time. 02/15/25 15:57 Case, H&P, test results and ED management thus far were discussed with Dr. Pietro Woodard. He accepts hospital admission. He requests pain medicine consultation. He has no further recommendations at this time. Medical Decision Making - Medical Decision Making Was pt. sent in by a medical professional or institution (, PA, [employer], urgent care, hospital, or jail...) When possible be specific @ -No Did you speak to anyone other than the patient for history (EMS, parent, family, police, friend...)? What history was obtained from this source @ -History was also provided by the patient's . Did you review nursing and triage notes (agree or disagree)? Why? @ -I reviewed and agree with nursing and triage notes Were old charts reviewed (outside hosp., previous admission, EMS record, old EKG, old radiological studies, urgent care reports/EKG's, jail records)? Report findings @ -No old charts were reviewed Differential Diagnosis (chest pain, altered mental status, abdominal pain women, abdominal pain men, vaginal bleeding, weakness, fever, dyspnea, syncope, headache, dizziness, GI bleed, back pain, seizure, CVA, palpatations, mental health, musculoskeletal)? @ -Differential Back Pain: Strain, fracture, subluxation, disc herniation, DJD, spinal stenosis, dissection, AAA, pancreatitis, pancreatic mass, biliary stent dysfunction, peptic ulcer disease, pyelonephritis, kidney stone, this is not meant to be an all-inclusive list. EKG interpreted by me (3pts min.). @ -None done X-rays interpreted by me (1pt min.). @ -None done CT interpreted by me (1pt min.). @ -CT abdomen/pelvis with IV contrast demonstrates a pancreatic head mass and interval placement of biliary stent with pneumobilia. U/S interpreted by me (1pt. min.). @ -None done What testing was considered but not performed or refused? (CT, X-rays, U/S, labs)? Why? @ -None What meds were considered but not given or refused? Why? @ -None Did you discuss the management of the patient with other professionals (professionals i.e. , PA, [employer], lab, RT, psych nurse, social services director, airport shuttle driver, teacher, correction officer supervisor, pillowcase turner)? Give summary @ -As above. Was smoking cessation discussed for >3mins.? @ -No Was critical care preformed (if so, how long)? @ -No Were there social determinants of health that impacted care today? How? (Homelessness, low income, unemployed, alcoholism, drug addiction, transportation, low edu. Level, literacy, decrease access to med. care, detention, rehab)? @ -No Was there de-escalation of care discussed even if they declined (Discuss DNR or withdrawal of care, Hospice)? DNR status @ -No What co-morbidities impacted this encounter? (DM, HTN, Smoking, COPD, CAD, Cancer, CVA, ARF, Chemo, Hep., AIDS, mental health diagnosis, sleep apnea, morbid obesity)? @ -Pancreatic mass Was patient admitted / discharged? Hospital course, mention meds given and route, prescriptions, significant lab abnormalities, going to OR and other pert inent info. @ -Patient reports improvement in his pain with the ED treatment. Patient's alkaline phosphatase and ALT are elevated, but they are improved when compared to his recent prior levels. Patient's bilirubin is within normal limits. Patient is afebrile and without leukocytosis. Patient's CT demonstrates interval placement of biliary stent with question of mid to distal stent patency. Given the patient's improved LFTs and normal bilirubin, I suspect that the stent is likely patent. No other concerning abnormalities are seen on CT. Case was discussed with Dr. Pietro Woodard, and he has accepted hospital admission for pain management and further evaluation. Patient and agree with this plan. Undiagnosed new problem with uncertain prognosis? @ -No Drug Therapy requiring intensive monitoring for toxicity (Heparin, Nitro, Insulin, Cardizem)? @ -No Were any procedures done? @ -No Diagnosis/symptom? @ -Acute on chronic back pain; pancreatic mass Acute, or Chronic, or Acute on Chronic? @ -Acute on chronic Uncomplicated (without systemic symptoms) or Complicated (systemic symptoms)? @ -Default Side effects of treatment? @ -No Exacerbation, Progression, or Severe Exacerbation? @ -No Poses a threat to life or bodily function? How? (Chest pain, USA, ID, pneumonia, PE, COPD, DKA, ARF, appy, cholecystitis, CVA, Diverticulitis, Homicidal, Suicidal, threat to staff... and all critical care pts) @ -No - Lab Data Result diagrams: 02/15/25 12:33 02/15/25 12:33 Lab Results 02/15/25 02/15/25 02/15/25 Range/Units 12:33 12:33 12:33 WBC 9.16 (4.50-10.00) 10*3/uL RBC 3.55 L (4.40-5.60) 10*6/uL Hgb 10.6 L (13.0-17.0) g/dL Hct 30.5 L (39.6-50.0) % MCV 85.9 (80.0-97.0) fL MCH 29.9 (27.0-32.0) pg MCHC 34.8 (32.0-37.0) g/dL Plt Count 293 (140-440) 10*3/uL MPV 11.0 (9.5-12.2) fL Immature Gran % (Auto) 0.8 % Neutrophils % 77.0 % Lymphocytes % 13.4 % Monocytes % 7.2 % Eosinophils % 1.4 % Basophils % 0.2 % Immature Gran # 0.07 H (0.00-0.04) 10*3/uL Neutrophils # 7.05 (1.80-7.70) 10*3/uL Lymphocytes # 1.23 (0.90-5.00) 10*3/uL Monocytes # 0.66 (0.20-1.00) 10*3/uL Eosinophils # 0.13 (0.04-0.35) 10*3/uL Basophils # 0.02 (0.00-0.10) 10*3/uL Sodium 132 L (137-145) mmol/L Potassium 3.4 L (3.5-5.1) mmol/L Chloride 100 (98-107) mmol/L Carbon Dioxide 21 L (22-30) mmol/L Anion Gap 11 mmol/L BUN 35 H (9-20) mg/dL Creatinine 0.64 L (0.66-1.25) mg/dL Est GFR (CKD-EPI)AfAm >90 (>60 ml/min/1.73 sqM) Est GFR (CKD-EPI)NonAf >90 (>60 ml/min/1.73 sqM) Glucose 265 H (74-99) mg/dL Plasma Lactic Acid Gopi 1.4 (0.7-2.0) mmol/L Calcium 9.9 (8.4-10.2) mg/dL Total Bilirubin 1.3 (0.2-1.3) mg/dL AST 55 (17-59) U/L ALT 198 H (4-49) U/L Alkaline Phosphatase 539 H (38-126) U/L Total Protein 6.4 (6.3-8.2) g/dL Albumin 3.7 (3.5-5.0) g/dL Amylase 38 (30-110) U/L Lipase 75 (23-300) U/L Urine Color Urine Appearance (Clear) Urine pH (5.0-8.0) Ur Specific [place] (1.001-1.035) Urine Protein (Negative) Urine Glucose (UA) (Negative) Urine Ketones (Negative) Urine Blood (Negative) Urine Nitrite (Negative) Urine Bilirubin (Negative) Urine Urobilinogen (<2.0) mg/dL Ur Leukocyte Esterase (Negative) 02/15/25 Range/Units 14:37 WBC (4.50-10.00) 10*3/uL RBC (4.40-5.60) 10*6/uL Hgb (13.0-17.0) g/dL Hct (39.6-50.0) % MCV (80.0-97.0) fL MCH (27.0-32.0) pg MCHC (32.0-37.0) g/dL Plt Count (140-440) 10*3/uL MPV (9.5-12.2) fL Immature Gran % (Auto) % Neutrophils % % Lymphocytes % % Monocytes % % Eosinophils % % Basophils % % Immature Gran # (0.00-0.04) 10*3/uL Neutrophils # (1.80-7.70) 10*3/uL Lymphocytes # (0.90-5.00) 10*3/uL Monocytes # (0.20-1.00) 10*3/uL Eosinophils # (0.04-0.35) 10*3/uL Basophils # (0.00-0.10) 10*3/uL Sodium (137-145) mmol/L Potassium (3.5-5.1) mmol/L Chloride (98-107) mmol/L Carbon Dioxide (22-30) mmol/L Anion Gap mmol/L BUN (9-20) mg/dL Creatinine (0.66-1.25) mg/dL Est GFR (CKD-EPI)AfAm (>60 ml/min/1.73 sqM) Est GFR (CKD-EPI)NonAf (>60 ml/min/1.73 sqM) Glucose (74-99) mg/dL Plasma Lactic Acid Gopi (0.7-2.0) mmol/L Calcium (8.4-10.2) mg/dL Total Bilirubin (0.2-1.3) mg/dL AST (17-59) U/L ALT (4-49) U/L Alkaline Phosphatase (38-126) U/L Total Protein (6.3-8.2) g/dL Albumin (3.5-5.0) g/dL Amylase (30-110) U/L Lipase (23-300) U/L Urine Color Yellow Urine Appearance Clear (Clear) Urine pH 5.5 (5.0-8.0) Ur Specific [place] 1.032 (1.001-1.035) Urine Protein Negative (Negative) Urine Glucose (UA) 2+ H (Negative) Urine Ketones Negative (Negative) Urine Blood Negative (Negative) Urine Nitrite Negative (Negative) Urine Bilirubin Negative (Negative) Urine Urobilinogen <2.0 (<2.0) mg/dL Ur Leukocyte Esterase Negative (Negative) - Radiology Data CT abdomen/pelvis with IV contrast: 1. There is interval placement of a biliary stent which is seen terminating in the duodenum. Questionable patency in the mid to distal aspect. This can be further characterized with fluoroscopic evaluation as clinically indicated. Interval development of intrahepatic pneumobilia noted centrally and within the left hepatic lobe with decompression of previously seen biliary dilatation. 2. Redemonstrated known pancreatic head mass concerning for adenocarcinoma. Midabdominal prominent lymph node is concerning for metastatic disease. 3. Indeterminate left adrenal gland nodule measuring up to 1.4 cm. Disposition Clinical Impression: Back pain, Pancreatic mass Disposition: ADMITTED IP TO THIS HOSP Condition: Stable Is patient prescribed a controlled substance at d/c from ED?: No Referrals: Pietro Woodard MD [Primary Care Provider] - 1-2 days Time of Disposition: 15:57
[2025-02-15] MEDS: SODIUM CHLORIDE 0.9% 1,000 ML IV STA (12:43)
[2025-02-15 12:44] LABS: Basophils # (A) 0.02 10*3/uL (0.00-0.10); Basophils % (A) 0.2 %; Eosinophils # (A) 0.13 10*3/uL (0.04-0.35); Eosinophils % (A) 1.4 %; HCT 30.5 % (39.6-50.0); HGB 10.6 g/dL (13.0-17.0); Lymphocytes # (A) 1.23 10*3/uL (0.90-5.00); Lymphocytes % (A) 13.4 %; MCH 29.9 pg (27.0-32.0); MCHC 34.8 g/dL (32.0-37.0); MCV 85.9 fL (80.0-97.0); Monocytes # (A) 0.66 10*3/uL (0.20-1.00); Monocytes % (A) 7.2 %; Neutrophils # (A) 7.05 10*3/uL (1.80-7.70); Platelet Count 293 10*3/uL (140-440); RBC 3.55 10*6/uL (4.40-5.60); RDW 13.1 % (11.5-14.5); WBC 9.16 10*3/uL (4.50-10.00)
[2025-02-15] MEDS: HYDROmorphone 1 MG/ML 1 ML SYRINGE IVP STA ×2 (12:44→13:34)
[2025-02-15] MEDS: ONDANSETRON 4 MG/2 ML VIAL IVP STA (12:44)
[2025-02-15 12:56] LABS: ALT 198 U/L (4-49); African American GFR (CKD) >90 (>60 ml/min/1.73 sqM); Albumin 3.7 g/dL (3.5-5.0); Amylase 38 U/L (30-110); Anion Gap 11 mmol/L; Blood Urea Nitrogen 35 mg/dL (9-20); Calcium 9.9 mg/dL (8.4-10.2); Carbon Dioxide 21 mmol/L (22-30); Chloride 100 mmol/L (98-107); Glucose 265 mg/dL (74-99); Lipase 75 U/L (23-300); Non-African American GFR(CKD) >90 (>60 ml/min/1.73 sqM); Sodium 132 mmol/L (137-145); Total Bilirubin 1.3 mg/dL (0.2-1.3); Total Protein 6.4 g/dL (6.3-8.2)
[2025-02-15 13:09] LABS: AST 55 U/L (17-59); Alkaline Phosphatase 539 U/L (38-126); Potassium 3.4 mmol/L (3.5-5.1)
[2025-02-15 14:46] LABS: Appearance,Urine Clear (Clear); Bilirubin,Urine Negative (Negative); Blood,Urine Negative (Negative); Color,Urine Yellow; Glucose,Urine (UA) 2+ (Negative); Ketones,Urine Negative (Negative); Leukocyte Esterase,Urine Negative (Negative); Nitrite,Urine Negative (Negative); PH, Urine 5.5 (5.0-8.0); Protein,Urine Negative (Negative); Specific Gravity,Urine 1.032 (1.001-1.035); Urobilinogen,Urine <2.0 mg/dL (<2.0)
--- NOTE | 2025-02-15 14:48 | CT ---
INDICATION: Patient age:Male; 64 years old; Reason for study: Back pain, history of pancreatic mass; PHH. COMPARISON: CT abdomen/pelvis 02/03/2025. TECHNIQUE: Standard CT of the abdomen and pelvis following the administration of 100 cc of Isovue 3 00 IV contrast material. Coronal and sagittal reformats were performed. One or more CT dose reduction strategies were utilized during this examination. Total DLP administered was 1558.9 mGycm. FINDINGS: LOWER CHEST: Unremarkable ABDOMEN LIVER: Focal fatty infiltration adjacent to the falciform ligament in segment IVb. Interval developme nt of central and left hepatic lobe pneumobilia. The remainder of the intrahepatic biliary ducts are not dilated as previously noted. GALLBLADDER AND BILE DUCTS: The gallbladder is surgically absent. There has been interval placement o f a biliary stent which is seen coursing through the common bile duct and terminating within the duod enum. The proximal portion of the stent demonstrates gas within the lumen but the mid to distal aspec t of the stent the lumen is attenuated. PANCREAS: Redemonstrated obstructive hypodense mass within the pancreatic head not significantly castro ged from the recent CT in reference measuring at least 4.4 x 3.7 cm on today's study. There is diffus e hepatic ductal dilatation measuring up to at least 7 cm. SPLEEN: Unremarkable. ADRENAL GLANDS: There is a left adrenal gland indeterminate lesion seen measuring up to 1.4 cm. There is nodularity/thickening of the right adrenal gland . KIDNEYS AND URETERS: No evidence of hydronephrosis or renal calculus. The ureters are unremarkable. PELVIS URINARY BLADDER: Incompletely distended but grossly unremarkable. REPRODUCTIVE: The prostate is not enlarged but does impress upon the posterior aspect of the urinary bladder. ABDOMEN & PELVIS STOMACH AND BOWEL: Stomach is grossly unremarkable. The small bowel is normal in caliber. The appendi x is visualized and is within normal limits No evidence of bowel obstruction. PERITONEUM: No evidence of pneumoperitoneum or free fluid. VASCULATURE: No aneurysmal changes. MUSCULOSKELETAL: Grade 1 anterolisthesis of L4 on L5. Scattered degenerative changes of the visualize d spine with no acute osseous abnormalities. LYMPH NODES: Scattered nonenlarged lymph nodes are seen with the largest of these noted adjacent to t he pancreatic body measuring up to 1.0 cm in short axis. SOFT TISSUE/ABDOMINAL WALL: Small fat filled left inguinal hernia and tiny fat filled umbilical herni a. IMPRESSION: 1. There is interval placement of a biliary stent which is seen terminating in the duodenum. Questio nable patency in the mid to distal aspect. This can be further characterized with fluoroscopic evalua tion as clinically indicated. Interval development of intrahepatic pneumobilia noted centrally and wi thin the left hepatic lobe with decompression of previously seen biliary dilatation. 2. Redemonstrated known pancreatic head mass concerning for adenocarcinoma. Midabdominal prominent ly mph node is concerning for metastatic disease. 3. Indeterminate left adrenal gland nodule measuring up to 1.4 cm. [facility], , 02/15/2025 2:46 PM
[2025-02-15] MEDS ORDERED: NALOXONE 0.4 MG/ML 1 ML VIAL IV PRN (16:01)
[2025-02-15] MEDS: HYDROmorphone 1 MG/ML 1 ML SYRINGE IVP PRN (18:25)
[2025-02-15] MEDS ORDERED: Potassium Replacement Protocol 1 EACH MISC MISCELLANE PRN (18:44)
[2025-02-15] MEDS ORDERED: NON FORMULARY DRUG (Albuterol Sulfate/Budesonide [Airsupra 90-80 Mcg Inhaler] 10.7 GM Hfa. INHALATION PRN (18:46)
[2025-02-15] MEDS ORDERED: DEXTROSE 50% SYRINGE 50 ML IVP PRN ×2 (19:19)
[2025-02-15 20:23] LABS: Glucose,Whole Blood 282 mg/dL (70-110)
[2025-02-15] MEDS: METOPROLOL TARTRATE 50 MG TAB PO SCH (21:13)
[2025-02-15] MEDS: GABAPENTIN 300 MG CAP PO SCH (21:13)
[2025-02-15] MEDS: PANTOPRAZOLE 40 MG TABLET PO SCH ×2 (21:14)
[2025-02-15] MEDS: DOXAZOSIN 4 MG TAB PO SCH (21:14)
[2025-02-15] MEDS: POTASSIUM CHLORIDE ER 20 MEQ TAB.ER PO SCH (21:15)
[2025-02-15] MEDS: INSULIN LISPRO (HumaLOG) 100 UNIT/ML 10 mL VL SQ SCH (21:16)
[2025-02-15] MEDS: IBUPROFEN 800 MG TAB PO SCH (21:16)
[2025-02-15] MEDS: SODIUM CHLORIDE 0.9% 1,000 ML IV SCH (21:20)
[2025-02-15] MEDS: ursodioL 300 MG CAP PO SCH (21:40)
[2025-02-15] MEDS: CYCLOBENZAPRINE 10 MG TAB PO SCH (22:43)
[2025-02-16] MEDS: SYMBICORT 160-4.5 MCG INHALER INHALATION SCH (00:43)
[2025-02-16 01:39] LABS: Glucose,Whole Blood 144 mg/dL (70-110)
[2025-02-16 02:56] LABS: Potassium 3.6 mmol/L (3.5-5.1)
[2025-02-16] MEDS ORDERED: Potassium Replacement Protocol 1 EACH MISC MISCELLANE PRN (03:02)
[2025-02-16] MEDS: POTASSIUM CHLORIDE ER 20 MEQ TAB.ER PO SCH (03:25)
[2025-02-16 06:07] LABS: Glucose,Whole Blood 173 mg/dL (70-110)
[2025-02-16 06:26] LABS: ALT 192 U/L (4-49); AST 51 U/L (17-59); African American GFR (CKD) >90 (>60 ml/min/1.73 sqM); Albumin 3.4 g/dL (3.5-5.0); Albumin/Globulin Ratio 1.4; Alkaline Phosphatase 487 U/L (38-126); Anion Gap 13 mmol/L; Blood Urea Nitrogen 26 mg/dL (9-20); Calcium 9.9 mg/dL (8.4-10.2); Carbon Dioxide 19 mmol/L (22-30); Chloride 101 mmol/L (98-107); Globulin 2.4 g/dL; Glucose 125 mg/dL (74-99); Non-African American GFR(CKD) >90 (>60 ml/min/1.73 sqM); Sodium 133 mmol/L (137-145); Total Protein 5.8 g/dL (6.3-8.2)
[2025-02-16] MEDS ORDERED: CHOLESTYRAMINE (WITH SUGAR) 4 GM PACKET PO SCH ×2 (07:00→08:00)
[2025-02-16 07:56] LABS: Basophils # (A) 0.03 X 10*3/uL (0.00-0.10); Basophils % (A) 0.3 %; Eosinophils # (A) 0.29 X 10*3/uL (0.04-0.35); Eosinophils % (A) 3.2 %; HCT 31.3 % (39.6-50.0); HGB 10.2 g/dL (13.0-17.0); Lymphocytes # (A) 0.62 X 10*3/uL (0.90-5.00); Lymphocytes % (A) 6.9 %; MCH 29.3 pg (27.0-32.0); MCHC 32.6 g/dL (32.0-37.0); MCV 89.9 FL (80.0-97.0); Mean Platelet Volume 11.8 FL (9.5-12.2); Monocytes # (A) 0.53 X 10*3/uL (0.20-1.00); Monocytes % (A) 5.9 %; NRBC Per 100 WBC 0 X 10*3/uL (0.00-0.01); Platelet Count 250 X 10*3/uL (140-440); RBC 3.48 X 10*6/uL (4.40-5.60); RDW 13.3 % (11.5-14.5); WBC 9.03 X 10*3/uL (4.50-10.00)
[2025-02-16] MEDS: LOSARTAN 50 MG TAB PO SCH (08:34)
[2025-02-16] MEDS: SPIRONOLACTONE 25 MG TAB PO SCH (08:34)
[2025-02-16] MEDS: CHOLESTYRAMINE (WITH SUGAR) 4 GM PACKET PO SCH (08:36)
[2025-02-16] MEDS: hydroCHLOROthiazide 25 MG TAB PO SCH (08:37)
[2025-02-16] MEDS: DULoxetine HCL 30 MG CAPSULE.DR PO SCH (08:37)
[2025-02-16] MEDS: TIOTROPIUM 2.5 MCG INHALER INHALATION SCH (08:54)
[2025-02-16] MEDS: NON FORMULARY DRUG (Sildenafil Citrate [Sildenafil Citrate] 50 MG Tablet) PO SCH (09:42)
[2025-02-16 11:22] VITALS: BMI 28.2
[2025-02-16 12:32] LABS: Glucose,Whole Blood 187 mg/dL (70-110)
--- NOTE | 2025-02-16 15:30 | P.CONS ---
History of Present Illness - Reason for Consult Consult date: 02/16/25 pancreatic mass Requesting physician: Pietro Woodard - Chief Complaint back pain - History of Present Illness Mr. Bustillos is a 64-year-old male who we saw 02/04/25 in consult, when he presented with c/o back pain, has chronic low back pain but was worsenign, radiating up to just below shoulder blades. This caused him to present for further evaluation. CXR showed no acute processes, CT AP reported cholecystectomy (pt had 3mo ago and a recent episode of pancreatitis), there was also reported severe intrahepatic and extrahepatic biliary ductal dilation, obstructing pancreatic mass measuring approximately 4.3 x 4.4 cm. Diverticulosis without acute diverticulitis. Transaminitis and hyperbilirubinemia on lab investigations. Pt was transferred to [facility] for EUS/ERCP with biopsy. There, he had CT of pancreas/pelvis reporting a 4.7 x 3.8 x 3.8 cm pancreatic head mass. Extrapancreatic extension with vascular involvement. Encasement of upper SMV and proximal portal vein with moderate to severe narrowing of the upper SMV and portal vein. Absent common hepatic artery. Multiple enlarged periportal/peripancreatic and cortical lymph nodes are indeterminate but, suspicious for metastatic disease. Other, indeterminate findings, including a 4 mm left lower lobe pulmonary nodule, 1.9 cm bilateral adrenal nodules. Patient had a FNA of the pancreatic head mass 02/06/2025. Unfortunately, the sample had very few cells, and the low cellularity precluded further interpretation. Endoscopic ultrasound and EGD showed large hiatal hernia, normal stomach, 41 mm x 30 mm mass identified in the pancreatic head. Patient was discharged last week pending results. Since being home, patient has had persistent back pain, he was on MS Contin every 4 hours. He is reporting tailbone to the shoulder pain, constant, painful to the touch, mild abdominal discomfort. He denies fevers, nausea or vomiting, chest pain, abdominal pain or cramping, swelling in the legs. We reviewed the reports with him today Review of Systems 10 poitn ROS is neg except as stated in HPI Past Medical History Past Medical History: Atrial Fibrillation, COPD, Hypertension, Prostate Disorder Additional Past Medical History / Comment(s): Chronic back pain, BPH, recent hospitalization cholecystitis, acute pancreatitis 11/05/24 - 11/08/24 History of Any Multi-Drug Resistant Organisms: None Reported Past Surgical History: Hernia Repair, Orthopedic Surgery, Tonsillectomy Additional Past Surgical History / Comment(s): Rt. carpal tunnel release, bilateral inguinal hernia repair, colonoscopy Past Anesthesia/Blood Transfusion Reactions: No Reported Reaction Additional Past Anesthesia/Blood Transfusion Reaction / Comm: n/a Past Psychological History: No Psychological Hx Reported Additional Psychological History / Comment(s): Pt resides with his spouse, 1 cats and a dog. 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 Smoking Status: Former smoker Past Alcohol Use History: Rare Additional Past Alcohol Use History / Comment(s): Pt started smoking in 1975 and quit in 2011. 2 drinks/week Past Drug Use History: None Reported Additional Drug Use History / Comment(s): uses marijuana gummy - Past Family History Father Additional Family Medical History / Comment(s): Father of a lung infection after a lung biopsy. Mother Family Medical History: Dementia, Diabetes Mellitus Additional Family Medical History / Comment(s): Mother is . Medications and Allergies Home Medications Medication Instructions Recorded Confirmed Type Cyclobenzaprine HCl 10 mg PO TID@0000,0800,1600 12/05/18 02/15/25 History Terazosin HCl 10 mg PO BID@799,199912/05/18 02/15/25 History hydroCHLOROthiazide [Hydrodiuril] 25 mg PO DAILY@0812/05/18 02/15/25 History Albuterol Sulfate/Budesonide 2 puff INHALATION RT-Q4H PRN 11/06/24 02/15/25 History [Airsupra 90-80 Mcg Inhaler] Budesonide/Glycopyr/Formoterol 2 puff INHALATION RT-BID@799,199911/06/24 02/15/25 History [Breztri Aerosphere Inhaler] Ibuprofen [Motrin] 800 mg PO BID@799,199911/06/24 02/15/25 History Losartan [Cozaar] 50 mg PO DAILY@0811/06/24 02/15/25 History Omeprazole [PriLOSEC] 40 mg PO HS@199911/06/24 02/15/25 History Sildenafil Citrate 50 mg PO DAILY@0811/06/24 02/15/25 History Aspirin EC [Ecotrin Low Dose] 81 mg PO DAILY@1600 02/15/25 02/15/25 History Cholestyramine (with Sugar) 4 gm PO BID PRN 02/15/25 02/15/25 History [Cholestyramine Packet] Cholestyramine (with Sugar) 4 gm PO DAILY@0700 02/15/25 02/15/25 History [Cholestyramine Packet] DULoxetine HCL [Cymbalta] 30 mg PO DAILY@0802/15/25 02/15/25 History Gabapentin [Neurontin] 300 mg PO HS@199902/15/25 02/15/25 History Metoprolol Tartrate [Lopressor] 50 mg PO BID@08,199902/15/25 02/15/25 History Pantoprazole Sodium [Protonix] 40 mg PO BID@799,199902/15/25 02/15/25 History Spironolactone [Aldactone] 50 mg PO DAILY@0802/15/25 02/15/25 History oxyCODONE HCL [oxyCODONE HCL (IR)] 15 mg PO Q4H 02/15/25 02/15/25 History ursodioL [Ursodiol] 300 mg PO BID@0800,199902/15/25 02/15/25 History Allergies Allergy/AdvReac Type Severity Reaction Status Date / Time pregabalin [From Lyrica] AdvReac AMS Verified 02/15/25 15:46 Physical Exam Vitals: Vital Signs Temp Pulse Pulse Resp BP BP Pulse Ox 02/16/25 07:33 98.1 F 91 17 108/78 96 02/16/25 07:29 89 17 02/16/25 01:39 98.3 F 68 15 123/71 96 02/15/25 19:43 98.1 F 97 18 107/73 95 02/15/25 16:49 97.8 F 72 17 110/65 96 02/15/25 16:13 97.9 F 95 18 112/69 98 02/15/25 11:39 97.6 F 68 18 109/64 95 Intake and Output 02/15/25 02/16/25 02/16/25 22:59 06:59 14:59 Other: # Voids 2 2 Weight 97.069 kg - Constitutional General appearance: average body habitus, cooperative, no acute distress - EENT Eyes: anicteric sclerae, EOMI ENT: hearing grossly normal, normal oropharynx - Neck Neck: no lymphadenopathy - Respiratory Respiratory: bilateral: CTA - Cardiovascular Rhythm: regular Heart sounds: normal: S1, S2 Abnormal Heart Sounds: no systolic murmur, no diastolic murmur, no rub, no S3 Gallop, no S4 Gallop, no click, no other leg Peripheral Edema: bilateral: None - Gastrointestinal General gastrointestinal: no absent bowel sounds, no decreased bowel sounds, no distended, no hepatomegaly, no hyperactive bowel sounds, normal bowel sounds, no organomegaly, no rigid, no scaphoid, soft, no splenomegaly, no tenderness, no umbilical hernia, no ventral hernia - Integumentary Integumentary: normal - Neurologic Neurologic: CNII-XII intact - Musculoskeletal Pain to palpation of the back from the scarum to the middle of the lower aspect of the scapula Musculoskeletal: strength equal bilaterally - Psychiatric Psychiatric: A&O x's 3, appropriate affect, intact judgment & insight Results CBC & Chem 7: 02/16/25 02:01 02/16/25 02:01 Labs: Abnormal Lab Results - Last 24 Hours (Table) 02/15/25 02/15/25 02/15/25 Range/Units 12:33 12:33 14:37 RBC 3.55 L (4.40-5.60) 10*6/uL Hgb 10.6 L (13.0-17.0) g/dL Hct 30.5 L (39.6-50.0) % Immature Gran # 0.07 H (0.00-0.04) 10*3/uL Lymphocytes # (0.90-5.00) X 10*3/uL Sodium 132 L (137-145) mmol/L Potassium 3.4 L (3.5-5.1) mmol/L Carbon Dioxide 21 L (22-30) mmol/L BUN 35 H (9-20) mg/dL Creatinine 0.64 L (0.66-1.25) mg/dL Glucose 265 H (74-99) mg/dL POC Glucose (mg/dL) (70-110) mg/dL Hemoglobin A1c (<=6.0) % ALT 198 H (4-49) U/L Alkaline Phosphatase 539 H (38-126) U/L Total Protein (6.3-8.2) g/dL Albumin (3.5-5.0) g/dL Urine Glucose (UA) 2+ H (Negative) 02/15/25 02/16/25 02/16/25 Range/Units 20:22 01:37 02:01 RBC (4.40-5.60) 10*6/uL Hgb (13.0-17.0) g/dL Hct (39.6-50.0) % Immature Gran # (0.00-0.04) 10*3/uL Lymphocytes # (0.90-5.00) X 10*3/uL Sodium (137-145) mmol/L Potassium (3.5-5.1) mmol/L Carbon Dioxide (22-30) mmol/L BUN (9-20) mg/dL Creatinine (0.66-1.25) mg/dL Glucose (74-99) mg/dL POC Glucose (mg/dL) 282 H 144 H (70-110) mg/dL Hemoglobin A1c 7.4 H (<=6.0) % ALT (4-49) U/L Alkaline Phosphatase (38-126) U/L Total Protein (6.3-8.2) g/dL Albumin (3.5-5.0) g/dL Urine Glucose (UA) (Negative) 02/16/25 02/16/25 02/16/25 Range/Units 02:01 02:01 06:06 RBC 3.48 L (4.40-5.60) 10*6/uL Hgb 10.2 L (13.0-17.0) g/dL Hct 31.3 L (39.6-50.0) % Immature Gran # 0.06 H (0.00-0.04) 10*3/uL Lymphocytes # 0.62 L (0.90-5.00) X 10*3/uL Sodium 133 L (137-145) mmol/L Potassium (3.5-5.1) mmol/L Carbon Dioxide 19 L (22-30) mmol/L BUN 26 H (9-20) mg/dL Creatinine 0.60 L (0.66-1.25) mg/dL Glucose 125 H (74-99) mg/dL POC Glucose (mg/dL) 173 H (70-110) mg/dL Hemoglobin A1c (<=6.0) % ALT 192 H (4-49) U/L Alkaline Phosphatase 487 H (38-126) U/L Total Protein 5.8 L (6.3-8.2) g/dL Albumin 3.4 L (3.5-5.0) g/dL Urine Glucose (UA) (Negative) Comments: outside documents reviewed and summarized CT scan - abdomen: report reviewed CT Scan - head: report reviewed Assessment and Plan (1) Back pain Current Visit: Yes Status: Acute Priority: High Code(s): M54.9 - DORSALGIA, UNSPECIFIED SNOMED Code(s): 256114464 (2) Pancreatic mass Current Visit: Yes Status: Acute Priority: High Code(s): K86.89 - OTHER SPECIFIED DISEASES OF PANCREAS SNOMED Code(s): 116643963 Plan: Back pain - Pt reports chronic back pain. The persistence and spreading of that pain is what caused him to seek medical attention. -Was on MS contin 15mg Q4 hours at home. Those were no longer adequate. He is currently on IV pain medications, he is not getting any significant relief -Pain management specialists consulted - Patient denies any issues related to constipation. He states he has been on pain medications before without issues with constipation. As needed stool softeners. Pancreatic mass - Recent workup at [facility]. Recent biopsy was had low cell count, unable to get a diagnosis. Recommendation is for referral/transfer back to tertiary care center for additional biopsies. Pt preference is HF main Doctor attests: I performed a history and physical examination of this patient, developed impression and plan of care. Discussed with dictator. I agree with dictators note, documented as a scribe.
--- NOTE | 2025-02-16 16:51 | P.PAINPG ---
Objective - Vital Signs Vital signs: Vital Signs Temp 98.2 F 02/16/25 13:43 Pulse 71 02/16/25 13:43 Resp 17 02/16/25 13:43 BP 122/77 02/16/25 13:43 Pulse Ox 98 02/16/25 13:43 FiO2 Intake & Output 02/15/25 02/16/25 02/16/25 18:59 06:59 18:59 Intake Total 600 Balance 600 Weight 97.069 kg 97.069 kg Intake: IV 600 Sodium Chloride 0.9% 1, 600 000 ml @ 75 mls/hr IV . [id number] [facility] Rx#:[id number] Other: # Voids 2 - Labs CBC & Chem 7: 02/16/25 02:01 02/16/25 02:01 Labs: Abnormal Lab Results - Last 24 Hours (Table) 02/15/25 02/16/25 02/16/25 Range/Units 20:22 01:37 02:01 RBC (4.40-5.60) X 10*6/uL Hgb (13.0-17.0) g/dL Hct (39.6-50.0) % Immature Gran # (0.00-0.04) X 10*3/uL Lymphocytes # (0.90-5.00) X 10*3/uL Sodium (137-145) mmol/L Carbon Dioxide (22-30) mmol/L BUN (9-20) mg/dL Creatinine (0.66-1.25) mg/dL Glucose (74-99) mg/dL POC Glucose (mg/dL) 282 H 144 H (70-110) mg/dL Hemoglobin A1c 7.4 H (<=6.0) % ALT (4-49) U/L Alkaline Phosphatase (38-126) U/L Total Protein (6.3-8.2) g/dL Albumin (3.5-5.0) g/dL 02/16/25 02/16/25 02/16/25 Range/Units 02:01 02:01 06:06 RBC 3.48 L (4.40-5.60) X 10*6/uL Hgb 10.2 L (13.0-17.0) g/dL Hct 31.3 L (39.6-50.0) % Immature Gran # 0.06 H (0.00-0.04) X 10*3/uL Lymphocytes # 0.62 L (0.90-5.00) X 10*3/uL Sodium 133 L (137-145) mmol/L Carbon Dioxide 19 L (22-30) mmol/L BUN 26 H (9-20) mg/dL Creatinine 0.60 L (0.66-1.25) mg/dL Glucose 125 H (74-99) mg/dL POC Glucose (mg/dL) 173 H (70-110) mg/dL Hemoglobin A1c (<=6.0) % ALT 192 H (4-49) U/L Alkaline Phosphatase 487 H (38-126) U/L Total Protein 5.8 L (6.3-8.2) g/dL Albumin 3.4 L (3.5-5.0) g/dL 02/16/25 Range/Units 12:26 RBC (4.40-5.60) X 10*6/uL Hgb (13.0-17.0) g/dL Hct (39.6-50.0) % Immature Gran # (0.00-0.04) X 10*3/uL Lymphocytes # (0.90-5.00) X 10*3/uL Sodium (137-145) mmol/L Carbon Dioxide (22-30) mmol/L BUN (9-20) mg/dL Creatinine (0.66-1.25) mg/dL Glucose (74-99) mg/dL POC Glucose (mg/dL) 187 H (70-110) mg/dL Hemoglobin A1c (<=6.0) % ALT (4-49) U/L Alkaline Phosphatase (38-126) U/L Total Protein (6.3-8.2) g/dL Albumin (3.5-5.0) g/dL PQRS Measure Charge Sheet Comment: HISTORY OF PRESENT ILLNESS: A 64 yr old inpatient male w at side as a referral from Dr Woodard presents today w severe recurrent abdominal pain secondary to pancreatic mass & history of pancreatitis for evaluation. Pt states pain level is provoked at 10 /10 in intensity, constant, localized in the upper abdomen, burning in character w occasional shooting pain towards the back. Provoked w meals. Pain is alleviated by medications (Oxycodone IR 15mg Q6h from Dr Woodard), repositioning and rest . He will be transferred to [facility] in [place] for a repeat biopsy of mass in pancreas within days. PMH: OA, aFib, COPD, HTN, BPH, Pancreatitis PSH: BL Inguinal Hernia Repair, R CTR, Tonsillectomy, Colonoscopy SH: . Former tobacco user. Daily ETOH use. Cannabis use (gummies). Retired. FH: Fa- Lung Biopsy complications. Mo- DM/ . All: See list Medications include REVIEW OF ORGAN SYSTEMS: CONSTITUTIONAL: No fevers or chills. No recent weight loss. NEUROLOGICAL: + numbness and tingling along the distal extremities. No seizure disorders or headaches. MUSCULOSKELETAL: + pain PSYCHIATRIC: Denies current depression or suicidal thoughts. Physical Examinations : Constitutional : Cooperative , not in acute distress . Neurologic : Cranial nerve II to XII intact. No focal neurological deficits. Psychiatric : alert & oriented x 3. Matching mood & appropriate affect. Judgment & insight intact. Musculoskeletal : Cervical Spine Motor strength in the deltoid and biceps: Normal right side. Normal Left side Motor strength biceps and the wrist extensors: Normal right side . Normal left side Motor strength in the triceps muscle: Normal right side. Normal left side Deep tendon reflexes: Normal at the biceps. Normal at Brachioradialis. Normal at triceps Vertebral body tenderness to deep palpation over Cervical facet loading test: positive bilaterally Spurling test: positive bilaterally Neck distraction test: positive bilaterally Brina sign: positive bilaterally Lumbar spine Motor strength lower extremities ,thigh and legs 5/5 Right side , 5/5 Left side Deep tendon reflexes : Normal Knee Jerk. Normal Ankle Jerk Vertebral body tenderness over Woodson Test positive Lumbar facet Loading Test: positive R ight / positive Left Range of motion of the lumbar spine Flexion 30 degrees, extension 10 degrees Straight Leg Raise test: Left/ Right positive at degrees Edi test: positive right / positive left. Severe tenderness over the Sacroiliac joint on the Right / Left sides Gaenslen test: positive bilaterally Seated flexion test: positive bilaterally. Sacral spine : Severe tenderness over the Sacroiliac joint: right side / left side Range of motion: Flexion of the lumbar spine <60 degrees Range of motion: Extension of the lumbar spine <20 degrees Gaenslen's Test positive Edi test: positive right side / left side Thigh Thrust Test Sacral Thrust Test Assessment/ Plan : Hx of Pancreatitis, Mass in Pancreas Recommendation of medication management. Oxycodone IR 15mg Q6h as verified by MAPS. Advised pt to discontinue cannabis use while taking Oxycodone IR at home, which he acknowledged understanding. May continue Dilaudid 1mg IVP only for breakthrough pain on an as needed basis. All questions answered. I have spent greater than 30 minutes on patient care today. Dr Kwok was available by phone for the evaluation of this patient. The time was used to review the medical records including relevant urine studies and Prescription history (MAPs), review of the available imaging, evaluation and examination of the patient, coordination of care with the medical staff and if applicable referring physicians, as well as creation of the medical record - Pain Location Back Non-Pharmacological Interventions: Darkened Room, Inactivity, Positi on/Reposition, Reduce Environmental Stimuli Pharmacological Interventions: PRN Medication PQRS Narrative: Smoking Status Former smoker Blood Pressure [Left Arm] 122/77 Blood Pressure 110/65 Pain Intensity [Back] 7 Pain Intensity 9 Pain Scale Used Numeric (1 - 10) Scale Used Numeric (1 - 10) Home Medications: Ambulatory Orders Cyclobenzaprine HCl 10 mg PO TID@0000,0800,159912/05/18 Terazosin HCl 10 mg PO BID@799,199912/05/18 hydroCHLOROthiazide [Hydrodiuril] 25 mg PO DAILY@79912/05/18 Albuterol Sulfate/Budesonide [Airsupra 90-80 Mcg Inhaler] 2 puff INHALATION RT- Q4H PRN 11/06/24 Budesonide/Glycopyr/Formoterol [Breztri Aerosphere Inhaler] 2 puff INHALATION RT-BID@799,199911/06/24 Ibuprofen [Motrin] 800 mg PO BID@799,199911/06/24 Losartan [Cozaar] 50 mg PO DAILY@79911/06/24 Omeprazole [PriLOSEC] 40 mg PO HS@199911/06/24 Sildenafil Citrate 50 mg PO DAILY@79911/06/24 Aspirin EC [Ecotrin Low Dose] 81 mg PO DAILY@1600 02/15/25 Cholestyramine (with Sugar) [Cholestyramine Packet] 4 gm PO BID PRN 02/15/25 Cholestyramine (with Sugar) [Cholestyramine Packet] 4 gm PO DAILY@0702/15/25 DULoxetine HCL [Cymbalta] 30 mg PO DAILY@79902/15/25 Gabapentin [Neurontin] 300 mg PO HS@199902/15/25 Metoprolol Tartrate [Lopressor] 50 mg PO BID@799,199902/15/25 Pantoprazole Sodium [Protonix] 40 mg PO BID@799,199902/15/25 Spironolactone [Aldactone] 50 mg PO DAILY@79902/15/25 oxyCODONE HCL [oxyCODONE HCL (IR)] 15 mg PO Q4H 02/15/25 ursodioL [Ursodiol] 300 mg PO BID@799,199902/15/25 Controlled Substance Measures - Controlled Substance Measures Is patient prescribed a controlled substance at discharge?: No
[2025-02-16] MEDS: ASPIRIN 81 MG PO SCH (17:19)
[2025-02-16 17:37] LABS: Glucose,Whole Blood 186 mg/dL (70-110)
[2025-02-16 19:26] LABS: Glucose,Whole Blood 232 mg/dL (70-110)
[2025-02-16] MEDS: CHOLESTYRAMINE (WITH SUGAR) 4 GM PACKET PO PRN (21:50)
--- NOTE | 2025-02-17 00:18 | HP ---
HISTORY AND PHYSICAL HISTORY OF PRESENT ILLNESS: A 64-year-old white male was admitted with severe chronic lower back pain. He has a history of pancreatic mass, possible cancer. Biopsy is inconclusive. History of pancreatitis, biliary obstruction, obstructive pancreatic mass 4.3 x 4.4 cm, elevated bilirubin and transaminases, [facility], EUS, ERCP, biopsy, vascular involvement, moderate to severe narrowing of the upper SMV and portal veins and large lymph nodes, 4 mm pulmonary nodule 1.9 cm, adrenal nodules, stenting of the pancreatic head mass, very few cells, large hiatal hernia. The patient's pain is severely worse despite pain medicines, tail bone, shoulder pain, constant, painful to touch. Has fever, chills. REVIEW OF SYSTEMS: A 14-point review of systems as mentioned above. note reviewed. PAST MEDICAL HISTORY: Atrial fibrillation, COPD, hypertension, prostate disorder, lung infection. MEDICATIONS: Reviewed. ALLERGIES: Lyrica. PHYSICAL EXAMINATION: VITAL SIGNS: Reviewed. HEENT: Normocephalic, atraumatic. CARDIOVASCULAR: S1, S2. LUNGS: Scattered wheeze. HEMATOLOGY: Negative Homans. PSYCH: Fair mood and affect. NEURO: Cranial nerves are intact. There is tenderness to palpation significantly near the lower scapula. LABORATORY DATA: BUN is 26, creatinine 0.6, 3.55. ASSESSMENT AND PLAN: Back pain, pancreatic mass. OxyIR q.4, MS Contin failed. Referral, transfer back to tertiary care for additional biopsies. Prognosis is guarded. Please see further orders. MMODL / IJN: [id number] /
[2025-02-17 04:09] VITALS: RESP 16
[2025-02-17 06:12] LABS: Glucose,Whole Blood 164 mg/dL (70-110)
[2025-02-17 12:17] LABS: Glucose,Whole Blood 230 mg/dL (70-110)
[2025-02-17 15:34] VITALS: BP 127/80; PULSE 68; TEMP 97.5
[2025-02-17 17:27] LABS: Glucose,Whole Blood 159 mg/dL (70-110)
== END 2025-02-17 19:21 | disposition home or self-care (01) ==
LOC: EC 11:37 → 6NMEDSUR 16:01
PROVIDERS: ADMIT Family Medicine; ATTEND Family Medicine
DX: K86.9 Disease of pancreas, unspecified (principal); M54.50 Low back pain, unspecified; G89.29 Other chronic pain; I10 Essential (primary) hypertension; J44.9 Chronic obstructive pulmonary disease, unspecified; I48.91 Unspecified atrial fibrillation; N40.0 Benign prostatic hyperplasia without lower urinary tract symptoms; Z87.891 Personal history of nicotine dependence; Z79.82 Long term (current) use of aspirin; Z79.899 Other long term (current) drug therapy
CPT/HCPCS: 96376 ×4; 96361 ×2; 96374 ×2; 96375; 99285; 36415; 94640 ×4; 80053 ×2; 82150; 83605; 83690; 85025 ×2; 81003; 86301; 83036; 74177; G0378 ×3; J2405; J1171 ×3; Q9967

== ENCOUNTER 2025-03-26 11:26 | Day surgery (SDC) | payer MEDICARE ==
[2025-03-25 11:16] VITALS: BMI 27.0
[~2025-03-26 11:26] MED LIST changes: +HYDROmorphone 0.5 MG/0.5 ML SYRINGE IVP PRN; +Pre Op ABX Message 1 EACH MISC MISCELLANE ONE; -SCOPOLAMINE 1 MG/72 HR PATCH TRANSDERM ONE
[2025-03-26 11:57] VITALS: TEMP 97.9
[2025-03-26] MEDS: IV FLUID CONTINUATION 1,000 ML IV ONE (12:08)
[2025-03-26] MEDS: LACTATED RINGERS 1,000 ML IV SCH (12:11)
[2025-03-26] MEDS: ONDANSETRON 4 MG/2 ML VIAL IVP ONE (12:11)
[2025-03-26] MEDS: DEXAMETHASONE SOD PHOSPHATE 4 MG/ML 1 ML VIAL IV ONE (12:11)
[2025-03-26] MEDS ORDERED: KETAMINE HCL IN 0.9 % NACL 50 MG/5 ML SYRINGE ONE (14:00)
[2025-03-26] MEDS ORDERED: MIDAZOLAM 2 MG/2 ML VIAL ONE (14:00)
[2025-03-26] MEDS ORDERED: fentaNYL (PF) 50 MCG/ML 2 ML AMP ONE (14:00)
[2025-03-26] MEDS ORDERED: PROPOFOL 10 MG/ML 20 ML VIAL IV ONE (14:00)
[2025-03-26] MEDS: HEPARIN SODIUM,PORCINE 100 UNIT/ML 5 ML VIAL IV ONE (14:33)
[2025-03-26] MEDS: BUPIVACAINE (PF) 0.25% 30 ML VIAL SQ ONE (14:34)
--- NOTE | 2025-03-26 15:05 | P.OP ---
Date of Procedure: 03/26/25 Preoperative Diagnosis: Pancreatic cancer Postoperative Diagnosis: Pancreatic cancer Procedure(s) Performed: Mediport placement with fluoroscopic guided Anesthesia: MAC Surgeon: Gabriel Nash Pathology: none sent Condition: stable Disposition: same day Indications for Procedure: 64-year-old male with diagnosis of pancreatic cancer. Plan is for induction of chemotherapy. Mediport with fluoroscopy guidance was recommended. The patient explained risks, benefits and alternatives including risks of bleeding and pneumothorax. All questions answered prior to attending the operative suite. Operative Findings: Appropriate flush and withdrawal from Mediport site Description of Procedure: Patient was brought to the operating suite and placed in supine position on the operating table. Sedation was provided by anesthesia and the patient underwent endotracheal intubation. Patient was then prepped and draped in regular sterile fashion. Local anesthetic was administered and the right subclavian vein was entered on first attempt. Dark, nonpulsatile blood was noted. Guidewire was then placed and location was confirmed under fluoroscopic guidance. At this point local anesthetic was administered to create the pocket for the port. Incision was made and dissection was carried to the prepectoralis fascia. Dissection was carried to free up space for the port. At this point a small incision was made at the guidewire insertion site and a tunnel was created between this guidewire site and the pocket and catheter was placed. Dilator sheath was then placed over the guidewire under fluoroscopic guidance and catheter was then placed. Catheter was noted to be in appropriate position and was connected to the port and port was placed in the pocket. Appropriate flush and withdrawal was noted from the port site. The port was then secured to the prepectoralis fascia in 2 separate locations. Fluoroscopic guidance confirmed location with no kinks in the catheter. Heparin lock was placed. The wound was then closed in layers with 3-0 Vicryl and 4-0 Vicryl subcuticular suture. Sterile dressing was applied. The patient was then taken to postanesthesia care unit in stable condition with pending chest x-ray.
--- NOTE | 2025-03-26 15:44 | XR ---
EXAMINATION TYPE: XR chest 1V confirm line [facility] DATE OF EXAM: 03/26/2025 COMPARISON: 02/04/2025 CLINICAL INDICATION: Male, 64 years old with history of Mediport; TECHNIQUE: Single frontal view of the chest is obtained. FINDINGS: Heart normal size. Interstitial prominence. Hyperinflation. Right anterior chest wall injection port with subclavian access and catheter tip at the upper SVC. No justyna consolidation or pleural effusion. No appreciable pneumothorax. IMPRESSION: 1. Right anterior chest wall injection port with catheter tip at the upper SVC. 2. COPD with ongoing interstitial prominence, possible bronchitis [facility], Workstation: [facility], 03/26/2025 3:42 PM
[2025-03-26 15:57] VITALS: BP 128/84; PULSE 88; RESP 20
--- NOTE | 2025-03-26 21:32 | FL ---
EXAMINATION TYPE: FL guided central line placemt Intraoperative/procedural fluoroscopic services were provided. CLINICAL INDICATION:Male, 64 years old with history of Port-A-Cath Insertion; , [facility] FINDINGS: Fluoroscopic images demonstrating right-sided subclavian approach Port-A-Cath insertion with distal t ip in the upper IVC. No radiographic evidence for complication. Total fluoroscopy time is 13.7 seconds. DAP: 0.78508 Gycm2 Please see the operative/procedural note for further details. [facility], , 03/26/2025 9:30 PM
== END 2025-03-26 16:06 | disposition home or self-care (01) ==
LOC: OR 11:26
PROVIDERS: ATTEND Surgery
DX: C25.9 Malignant neoplasm of pancreas, unspecified (principal); J44.9 Chronic obstructive pulmonary disease, unspecified; I48.91 Unspecified atrial fibrillation; K21.9 Gastro-esophageal reflux disease without esophagitis; N40.0 Benign prostatic hyperplasia without lower urinary tract symptoms; I10 Essential (primary) hypertension; M19.90 Unspecified osteoarthritis, unspecified site; Z45.2 Encounter for adjustment and management of vascular access device; Z88.6 Allergy status to analgesic agent; Z79.82 Long term (current) use of aspirin; Z79.899 Other long term (current) drug therapy
CPT/HCPCS: 77001; 36561; C1788; J2250; J1642; J1100; J2405; J3010; J2704; J0665

== ENCOUNTER 2025-03-31 05:14 | Inpatient (IN) | payer MEDICARE ==
--- NOTE | 2025-03-31 05:37 | ED ---
Abdominal Pain HPI - General Source: patient, family Mode of arrival: ambulatory Limitations: no limitations <Sonal Berrios - Last Filed: 03/31/25 21:04> <Tam Harris - Last Filed: 04/10/25 10:47> - General Chief Complaint: Abdominal Pain Stated Complaint: Abdominal Pain Time Seen by Provider: 03/31/25 05:35 - History of Present Illness Initial Comments: 64-year-old male with COPD, hypertension, BPH, A-fib (on anticoagulation), chronic back pain due to herniated disc, new diagnosis of pancreatic cancer (parker borges with Dr. Guillen, first chemo session on Sunday) here for abdominal pain. Patient reported that 2 days ago, he began to experience new shooting abdominal pain in the hypogastric area that was intermittent but nonradiating. He reported no alleviating or precipitating factors. He is currently on fentanyl patch, morphine 15 mg scheduled and then switched to oxy 20. He denied nausea, vomiting, fever, chills, chest pain, palpitations, shortness of breath, abrupt extremity swelling, recent prolonged travel, exposure to sick contacts. (Sonal Berrios) - Related Data Home Medications Medication Instructions Recorded Confirmed Cyclobenzaprine HCl 10 mg PO BID@0800,1600 12/05/18 03/31/25 Omeprazole [PriLOSEC] 40 mg PO HS@199911/06/24 03/31/25 Sildenafil Citrate 50 mg PO DAILY@0800 11/06/24 03/31/25 Aspirin EC [Ecotrin Low Dose] 81 mg PO DAILY@1400 02/15/25 03/31/25 DULoxetine HCL [Cymbalta] 30 mg PO DAILY@0800 02/15/25 03/31/25 Gabapentin [Neurontin] 300 mg PO HS@199902/15/25 03/31/25 Pantoprazole Sodium [Protonix] 40 mg PO BID@0800,199902/15/25 03/31/25 Spironolactone [Aldactone] 50 mg PO DAILY@0800 02/15/25 03/31/25 ursodioL [Ursodiol] 300 mg PO BID@0800,199902/15/25 03/31/25 Potassium Chloride [Klor-Con M20] 20 meq PO BID@0800,199903/25/25 03/31/25 Tamsulosin [Flomax] 0.4 mg PO HS@199903/25/25 03/31/25 metOLazone 2.5 mg PO DAILY@0800 03/25/25 03/31/25 ondansetron HCL [Zofran] 8 mg PO TID PRN 03/25/25 03/31/25 Albuterol Sulfate/Budesonide 2 puff INHALATION RT-Q4H PRN 03/31/25 03/31/25 [Airsupra 90-80 Mcg Inhaler] Budesonide/Glycopyr/Formoterol 2 puff INHALATION RT-BID 03/31/25 03/31/25 [Breztri Aerosphere Inhaler] Cholestyramine (with Sugar) 4 gm PO QID PRN 03/31/25 03/31/25 [Cholestyramine Packet] fentaNYL 25MCG/HR PATCH [Duragesic 1 patch TRANSDERM Q72H 03/31/25 03/31/25 25MCG/HR] methocarbamoL 750 mg PO HS@03/31/25 03/31/25 oxyCODONE HCL [oxyCODONE HCL (IR)] 20 mg PO Q4H 03/31/25 03/31/25 Previous Rx's Medication Instructions Recorded Docusate [Colace] 100 mg PO BID cap 04/03/25 Metoprolol Tartrate [Lopressor] 50 mg PO BID@0800,1999 30 Days #60 04/03/25 tab fentaNYL 100MCG/HR PATCH 1 patch TRANSDERM Q72H patch 04/03/25 [Duragesic 100MCG/HR] metroNIDAZOLE [Flagyl] 500 mg PO TID 7 Days #21 tab 04/03/25 Allergies Allergy/AdvReac Type Severity Reaction Status Date / Time pregabalin [From Lyrica] AdvReac AMS Verified 03/31/25 10:08 Review of Systems ROS Other: All systems not noted in ROS Statement are negative. <Sonal Berrios - Last Filed: 03/31/25 21:04> ROS Other: All systems not noted in ROS Statement are negative. <Tam Harris - Last Filed: 04/10/25 10:47> ROS Statement: Those systems with pertinent positive or pertinent negative responses have been documented in the HPI. Past Medical History Past Medical History: Atrial Fibrillation, Cancer, COPD, Hypertension, Prostate Disorder Additional Past Medical History / Comment(s): a-fib was past hx and was stress induced related to work, Chronic back pain, BPH, pancreatic cancer-new (gallbladder and pain issues since 10/2024) History of Any Multi-Drug Resistant Organisms: None Reported Past Surgical History: Cholecystectomy, Hernia Repair, Orthopedic Surgery, Tonsillectomy Additional Past Surgical History / Comment(s): Rt. carpal tunnel release, bilateral inguinal hernia repair, colonoscopy, pancreas bx Past Anesthesia/Blood Transfusion Reactions: No Reported Reaction Additional Past Anesthesia/Blood Transfusion Reaction / Comment(s): n/a Past Psychological History: No Psychological Hx Reported Smoking Status: Former smoker Past Alcohol Use History: Rare Past Drug Use History: Marijuana - Past Family History Father Additional Family Medical History / Comment(s): Father of a lung infection after a lung biopsy. Mother Family Medical History: Dementia, Diabetes Mellitus Additional Family Medical History / Comment(s): Mother is . <Sonal Berrios - Last Filed: 03/31/25 21:04> General Exam Limitations: no limitations <Sonal Berrios - Last Filed: 03/31/25 21:04> - General Exam Comments Initial Comments: Physical examination: Vital signs reviewed General: non toxic, no distress, appears at stated age Head: atraumatic, normocephalic, symmetric Mouth: no lip lesion, mucus membranes moist Cardiovascular: S1S2 reg, no murmur Lungs: CTA bilateral, no rhonchi, no rales, no accessory muscle use Abdominal: soft, nondistended, tender to deep palpation in the left lower quadrant and right lower quadrant, bowel sounds appreciated, no guarding Ext: muscle strength 5 out of 5 in all 4 extremities grossly, no gross muscle atrophy, no contractures, positive dorsalis pedis pulse bilateral, trace ankle edema Neuro: no gross focal neuro deficits Psych: Alert and oriented x3, appropriate affect and mood (Sonal Berrios) Course Vital Signs 03/31/25 03/31/25 03/31/25 05:15 09:51 10:27 Temperature 98 F Pulse Rate 82 78 80 Respiratory 18 18 18 Rate Blood Pressure 164/85 136/87 132/74 O2 Sat by Pulse 98 99 98 Oximetry Medical Decision Making - Lab Data Result diagrams: 03/31/25 06:37 03/31/25 06:37 <YashSonal vo - Last Filed: 03/31/25 21:04> - Lab Data Result diagrams: 04/02/25 06:28 04/02/25 06:28 <Tam Harris - Last Filed: 04/10/25 10:47> - Medical Decision Making Was pt. sent in by a medical professional or institution (, MELODIE, RADIATION PROTECTION SPECIALIST, urgent care, hospital, or snf...) When possible be specific @ -No Did you speak to anyone other than the patient for history (EMS, parent, family, police, friend...)? What history was obtained from this source @ -No Did you review nursing and triage notes (agree or disagree)? Why? @ -I reviewed and agree with nursing and triage notes Were old charts reviewed (outside hosp., previous admission, EMS record, old EKG, old radiological studies, urgent care reports/EKG's, snf records)? Report findings @ -Old charts reviewed Differential Diagnosis? @ -Differential Abdominal Pain Men: Appendicitis, cholecystitis, diverticulosis, ischemic bowel, pancreatitis, hepatitis, UTI, gastroenteritis, AAA, incarcerated hernia, bowel obstruction, constipation, inflammatory bowel, hepatitis, peptic ulcer disease, splenic infarction, perforated viscus, testicular torsion, this is not meant to be an all-inclusive list EKG interpreted by me (3pts min.). @ -[As above] X-rays interpreted by me (1pt min.). @ -[None done] CT interpreted by me (1pt min.). @ -[None done] U/S interpreted by me (1pt. min.). @ -[None done] What testing was considered but not performed or refused? (CT, X-rays, U/S, labs)? Why? @ -None What meds were considered but not given or refused? Why? @ -None Did you discuss the management of the patient with other professionals (professionals i.e. MELODIE Rose, RADIATION PROTECTION SPECIALIST, lab, RT, psych nurse, social director, telephone instrument supervisor, teacher, sergeant of officers, registered nurse hh case manager)? Give summary @ -Dr. Harris, supervising physician Was smoking cessation discussed for >3mins.? @ -No Was critical care preformed (if so, how long)? @ -No Were there social determinants of health that impacted care today? How? (Homelessness, low income, unemployed, alcoholism, drug addiction, trans portation, low edu. Level, literacy, decrease access to med. care, nursing home, rehab)? @ -No Was there de-escalation of care discussed even if they declined (Discuss DNR or withdrawal of care, Hospice)? DNR status @ -No What co-morbidities impacted this encounter? (DM, HTN, Smoking, COPD, CAD, Cancer, CVA, ARF, Chemo, Hep., AIDS, mental health diagnosis, sleep apnea, morbid obesity)? @ -[None] Was patient admitted / discharged? Hospital course, mention meds given and route, prescriptions, significant lab abnormalities, going to OR and other pertinent info. @ -Admission. IV dilaudid, labs and CT abd pelvis without contrast ordered. Labs showed hemoglobin 12.5, potassium 3, sodium 133, chloride 95, elevated alk phos of 277. Urinalysis unremarkable. CT abdomen pelvis shows new generalized mesenteric edema and diffuse wall thickening of the colon involving the ascending colon consider pancolitis, trace pelvic free fluid that is likely reactive. Dr. Harris spoke to Dr. Woodard who accepted this admission. Undiagnosed new problem with uncertain prognosis? @ -[No] Drug Therapy requiring intensive monitoring for toxicity (Heparin, Nitro, Insulin, Cardizem)? @ -No Were any procedures done? @ -No Diagnosis/symptom? @ -[default] Acute, or Chronic, or Acute on Chronic? @ -Acute Uncomplicated (without systemic symptoms) or Complicated (systemic symptoms)? @ -[default] Side effects of treatment? @ -No Exacerbation, Progression, or Severe Exacerbation? @ -No Poses a threat to life or bodily function? How? (Chest pain, USA, CT, pneumonia, PE, COPD, DKA, ARF, appy, cholecystitis, CVA, Diverticulitis, Homicidal, Suicidal, threat to staff... and all critical care pts) @ -No Case signed out to Dr. Harris at end of shift 704 (Sonal Berrios) I personally saw the patient and performed the critical portion of the service. I discussed the patient care with the resident. I directed management, care planning and final disposition of the patient. This includes, but not limited to, review of all lab work, radiological studies, EKG's, consultations, vital signs, and nursing notes. EKG interpreted by me (3pts min.) @ [as above] X-Rays interpreted by me (1 pt min.) @ [none] CT interpreted by me ( 1pt min.) @The patient had CT scan of the abdomen and pelvis that I interpreted to show mass in the head of the pancreas. There is also some mesenteric edema. No free air or obstruction. U/S interpreted by me (1 pt min.) @ [none] Critical care time of [0] minutes excluding separately billable procedures was spent in conjunction with critical care activities provided by the Resident and Attending simultaneously. I was present during [no procedures] for all critical portions of the procedure and as immediately available to furnish service during the entire procedure. (Tam Harris) - Lab Data Lab Results 03/31/25 03/31/25 03/31/25 Range/Units 06:37 06:37 08:28 WBC 5.61 (4.50-10.00) 10*3/uL RBC 4.44 (4.40-5.60) 10*6/uL Hgb 12.5 L (13.0-17.0) g/dL Hct 35.5 L (39.6-50.0) % MCV 80.0 D (80.0-97.0) fL MCH 28.2 (27.0-32.0) pg MCHC 35.2 (32.0-37.0) g/dL Plt Count 197 (140-440) 10*3/uL MPV 11.2 (9.5-12.2) fL Immature Gran % (Auto) 0.2 % Neutrophils % 67.3 % Lymphocytes % 16.6 % Monocytes % 8.6 % Eosinophils % 6.8 % Basophils % 0.5 % Immature Gran # 0.01 (0.00-0.04) 10*3/uL Neutrophils # 3.78 (1.80-7.70) 10*3/uL Lymphocytes # 0.93 (0.90-5.00) 10*3/uL Monocytes # 0.48 (0.20-1.00) 10*3/uL Eosinophils # 0.38 H (0.04-0.35) 10*3/uL Basophils # 0.03 (0.00-0.10) 10*3/uL Sodium 133 L (137-145) mmol/L Potassium 3.0 L (3.5-5.1) mmol/L Chloride 95 L (98-107) mmol/L Carbon Dioxide 29 (22-30) mmol/L Anion Gap 9 mmol/L BUN 10 (9-20) mg/dL Creatinine 0.50 L (0.66-1.25) mg/dL Est GFR (CKD-EPI)AfAm >90 (>60 ml/min/1.73 sqM) Est GFR (CKD-EPI)NonAf >90 (>60 ml/min/1.73 sqM) Glucose 191 H (74-99) mg/dL Calcium 9.7 (8.4-10.2) mg/dL Total Bilirubin 0.6 (0.2-1.3) mg/dL AST 25 (17-59) U/L ALT 37 (4-49) U/L Alkaline Phosphatase 277 H (38-126) U/L Total Protein 5.9 L (6.3-8.2) g/dL Albumin 3.6 (3.5-5.0) g/dL Urine Color Colorless Urine Appearance Clear (Clear) Urine pH 6.0 (5.0-8.0) Ur Specific [place] 1.013 (1.001-1.035) Urine Protein Negative (Negative) Urine Glucose (UA) Negative (Negative) Urine Ketones Negative (Negative) Urine Blood Negative (Negative) Urine Nitrite Negative (Negative) Urine Bilirubin Negative (Negative) Urine Urobilinogen <2.0 (<2.0) mg/dL Ur Leukocyte Esterase Negative (Negative) Disposition Time of Disposition: 07:45 <Sonal Berrios - Last Filed: 03/31/25 21:04> <Tam Harris - Last Filed: 04/10/25 10:47> Clinical Impression: Acute abdomen Disposition: ADMITTED IP TO THIS HOSP Condition: Serious
[2025-03-31] MEDS: HYDROmorphone 1 MG/ML 1 ML SYRINGE IVP STA ×3 (07:00→07:53)
[2025-03-31 07:06] LABS: Basophils # (A) 0.03 10*3/uL (0.00-0.10); Basophils % (A) 0.5 %; Eosinophils # (A) 0.38 10*3/uL (0.04-0.35); Eosinophils % (A) 6.8 %; HCT 35.5 % (39.6-50.0); HGB 12.5 g/dL (13.0-17.0); Lymphocytes # (A) 0.93 10*3/uL (0.90-5.00); Lymphocytes % (A) 16.6 %; MCH 28.2 pg (27.0-32.0); MCHC 35.2 g/dL (32.0-37.0); Monocytes # (A) 0.48 10*3/uL (0.20-1.00); Monocytes % (A) 8.6 %; Neutrophils # (A) 3.78 10*3/uL (1.80-7.70); Neutrophils % (A) 67.3 %; Platelet Count 197 10*3/uL (140-440); RBC 4.44 10*6/uL (4.40-5.60); RDW 12.7 % (11.5-14.5); WBC 5.61 10*3/uL (4.50-10.00)
[2025-03-31 07:23] LABS: MCV 80.0 fL (80.0-97.0)
--- NOTE | 2025-03-31 07:33 | CT ---
EXAMINATION TYPE: CT abdomen pelvis wo con DATE OF EXAM: 03/31/2025 6:27 AM COMPARISON: 02/15/2025 CLINICAL INDICATION: Male, 64 years old with history of abdominal pain; bilateral flank pain, pancrea tic CA TECHNIQUE: CT of the abdomen and pelvis without contrast. Coronal and sagittal reconstructions perfor med. CT DLP: 745.4 mGycm, Automated exposure control for dose reduction was used. FINDINGS: Heart normal size without pericardial effusion. Some peribronchial cuffing in the lung bases and emph ysematous change. Slight asymmetric elevation left hemidiaphragm. Small hiatal hernia. Small adjacent mesenteric nodules within the hiatal hernia possibly small lymph nodes. There is mild fold thickening at the gastric fundus and proximal body. Diffuse low attenuation of the pancreatic parenchyma. Redemonstrated pneumobilia with a metallic bili maira stent in place. Gallbladder surgically absent. Right adrenal gland and kidneys within normal limits. 1.6 cm left adrenal nodule is unchanged. Spleen enlarged at 15.7 cm measured on coronal series. Patient's known pancreatic head mass currently estimated at 5.4 x 4.1 cm versus 4.4 x 3.7 cm, previou sly though not well delineated due to the lack of IV contrast. Mesenteric edema throughout the abdomen and pelvis is new. There is also moderate circumferential col onic wall thickening throughout. Moderate fatty stool burden. There appears to be moderate annular wa ll thickening at thee ascending colon, axial image 70 and coronal image 73. No free air. Trace pelvic free fluid. A few mid mesenteric abdominal lymph nodes measuring up to 1.8 cm now versus 1.0 cm, previously. Bladder urine distended. Prostate gland mildly enlarged 7.8 cm wide with soft tissue impressing into the base of the bladder suggesting BPH. Patulous left inguinal canal. Trace cul-de-sac free fluid. Moderate degenerative changes right hip and mild of the left hip. Severe hypertrophic facet arthropat hy mid to lower lumbar spine with a degenerative prominent grade 1 anterolisthesis L4-L5. IMPRESSION: 1. Known pancreatic head mass. Limited assessment by noncontrast CT. However, estimated slightly lar anali at 5.4 cm versus 4.4 cm, previously. Some mid abdominal lymph nodes just adjacent have increased in size as well currently 1.8 cm versus 1.0 cm, previously. 2. Metallic biliary stent remains in place with similar pneumobilia and hepatic steatosis. 3. New generalized mesenteric edema throughout could reflect third spacing or inflammatory change. We do note diffuse fold thickening of the colon to a greater degree involving the ascending colon. Cons ider a moderate, infectious or inflammatory pancolitis. Trace pelvic free fluid likely reactive as we ll. 4. Small hiatal hernia with additional fold thickening at the gastric fundus and proximal body of the stomach could reflect a concurrent gastritis. Small mesenteric nodules within the hiatal hernia are also new and could represent reactive lymph nodes or metastatic disease. 5. Redemonstrated splenomegaly at 15.7 cm. 6. Correlated for possible bronchitis in the visualized lower lungs. [facility], , 03/31/2025 7:31 AM
[2025-03-31 07:56] LABS: ALT 37 U/L (4-49); AST 25 U/L (17-59); African American GFR (CKD) >90 (>60 ml/min/1.73 sqM); Albumin 3.6 g/dL (3.5-5.0); Alkaline Phosphatase 277 U/L (38-126); Anion Gap 9 mmol/L; Blood Urea Nitrogen 10 mg/dL (9-20); Calcium 9.7 mg/dL (8.4-10.2); Carbon Dioxide 29 mmol/L (22-30); Chloride 95 mmol/L (98-107); Glucose 191 mg/dL (74-99); Non-African American GFR(CKD) >90 (>60 ml/min/1.73 sqM); Potassium 3.0 mmol/L (3.5-5.1); Sodium 133 mmol/L (137-145); Total Protein 5.9 g/dL (6.3-8.2)
[2025-03-31] MEDS ORDERED: NALOXONE 0.4 MG/ML 1 ML VIAL IV PRN (08:27)
[2025-03-31] MEDS ORDERED: MORPHINE SULFATE ER 15 MG TABLET PO SCH (08:30)
[2025-03-31 08:31] LABS: Bilirubin,Urine Negative (Negative); Blood,Urine Negative (Negative); Color,Urine Colorless; Glucose,Urine (UA) Negative (Negative); Ketones,Urine Negative (Negative); Leukocyte Esterase,Urine Negative (Negative); Nitrite,Urine Negative (Negative); PH, Urine 6.0 (5.0-8.0); Protein,Urine Negative (Negative); Specific Gravity,Urine 1.013 (1.001-1.035); Urobilinogen,Urine <2.0 mg/dL (<2.0)
[2025-03-31] MEDS: SODIUM CHLORIDE 0.9% 1,000 ML IV SCH (08:44)
[2025-03-31] MEDS: LEVOFLOXACIN 750MG-D5W PMX 750 MG in DEXTROSE/WATER 1 150ML.BAG IVPB STA (08:46)
[2025-03-31] MEDS: metOLazone 2.5 MG TAB PO SCH (09:06)
[2025-03-31] MEDS: POTASSIUM CHLORIDE ER 20 MEQ TAB.ER PO SCH (09:06)
[2025-03-31] MEDS: TAMSULOSIN 0.4 MG CAP.ER.24H PO SCH ×2 (09:06→20:58)
[2025-03-31] MEDS: FAMOTIDINE 20 MG TAB PO SCH (09:06)
[2025-03-31] MEDS ORDERED: ONDANSETRON ODT 4 MG TAB PO PRN (11:53)
[2025-03-31] MEDS: CHOLESTYRAMINE RESIN 4 GM PACKET PO PRN (14:32)
[2025-03-31] MEDS: CYCLOBENZAPRINE 10 MG TAB PO SCH (16:31)
[2025-03-31] MEDS: ASPIRIN 81 MG PO SCH (16:31)
[2025-03-31] MEDS: methylPREDNISolone SOD SUCCI 40 MG/ML 1 ML VIAL IV SCH (18:10)
[2025-03-31] MEDS: SYMBICORT 160-4.5 MCG INHALER INHALATION SCH (19:41)
[2025-03-31] MEDS ORDERED: PANTOPRAZOLE 40 MG TABLET PO SCH (20:00)
[2025-03-31] MEDS: METOPROLOL TARTRATE 50 MG TAB PO SCH (20:58)
[2025-03-31] MEDS: GABAPENTIN 300 MG CAP PO SCH (20:58)
[2025-03-31] MEDS: PANTOPRAZOLE 40 MG TABLET PO SCH (21:52)
[2025-04-01] MEDS: TIOTROPIUM 2.5 MCG INHALER INHALATION SCH (07:55)
[2025-04-01] MEDS: ONDANSETRON 4 MG/2 ML VIAL IVP PRN (08:10)
[2025-04-01 08:13] LABS: Anion Gap 11.90 mmol/L (4.00-12.00); BUN/Creat Ratio 17.20 Ratio (12.00-20.00); Blood Urea Nitrogen 8.6 mg/dL (9.0-27.0); Calcium 8.7 mg/dL (8.7-10.3); Carbon Dioxide 24.1 mmol/L (21.6-31.8); Chloride 95 mmol/L (96-109); Glucose 346 mg/dL (70-110); Potassium 2.9 mmol/L (3.5-5.5); Sodium 131 mmol/L (135-145)
[2025-04-01] MEDS: SILDENAFIL 20 MG TAB PO SCH (08:16)
[2025-04-01] MEDS: SPIRONOLACTONE 25 MG TAB PO SCH (08:16)
[2025-04-01] MEDS: metroNIDAZOLE-NS PMX 500 MG in SALINE 1 100ML.BAG IVPB SCH (08:31)
--- NOTE | 2025-04-01 11:37 | P.GSCN ---
History of Present Illness Consult date: 04/01/25 History of present illness: CHIEF COMPLAINT: Abdominal pain HISTORY OF PRESENT ILLNESS: This is a 64-year-old male with a known history of pancreatic cancer. He is scheduled to start chemotherapy next Sunday. Patient had increased abdominal pain in his mid abdomen that started 4 days ago. Pain increased over the last few days. He also reports nausea. He reports having regular bowel movements. Denies any blood in his stools. He reports his last colonoscopy was about 2 to 3 years ago and was unremarkable. Patient had a CT scan abdomen pelvis that reported evidence of pancolitis and gastritis. And reported about his known pancreatic head mass. Patient does report that this pain feels different than his pancreatic cancer pain. Patient is tolerating the clear liquid diet. Pain is controlled with pain medication. And he was started on Flagyl. Surgical service consulted for pancolitis. PAST MEDICAL HISTORY: See below PAST SURGICAL HISTORY: See below MEDICATIONS: See below ALLERGIES: See below SOCIAL HISTORY: No illicit drug use. REVIEW OF SYSTEMS: CONSTITUTIONAL: Denies fever or chills. HEENT: Denies blurred vision, vision changes, or eye pain. Denies hemoptysis CARDIOVASCULAR: Denies chest pain or pressure. RESPIRATORY: No shortness of breath. GASTROINTESTINAL: See HPI for pertinent findings HEMATOLOGIC: Denies bleeding disorders. GENITOURINARY: Denies any blood in urine or increased urinary frequency. SKIN: Denies pruitis. Denies rash. PHYSICAL EXAM: VITAL SIGNS: Reviewed GENERAL: Well-developed in no acute distress. HEENT: No sclera icterus. Extraocular movements grossly intact. Moist buccal mucosa. Head is atraumatic, normocephalic. No nasal drainage. ABDOMEN: Soft. Nondistended. Mild tenderness with palpation across the mid abdomen NEUROLOGIC: Alert and oriented. Cranial nerves II through XII grossly intact. LABORATORY DATA: WBC 5.61 Hgb 12.5 platelets 197 Sodium 131 potassium 2.9 creatinine 0.5 magnesium 1.4 IMAGING: CT scan abdomen and pelvis reports known pancreatic head mass slightly larger at 5.4 cm versus 4.4 cm. Mid abdominal lymph node adjacent have increased in size as well currently 1.8 cm versus 1.0 cm. Metallic biliary stent remains in place with similar pneumobilia and hepatic steatosis. Generalized mesenteric edema throughout could reflect third spacing or inflammatory change. Diffuse fold thickening of the colon to greater degree involving the ascending colon consider moderate infectious or inflammatory pancolitis. Small hiatal hernia. Full thickening of the gastric fundus could reflect gastritis. ASSESSMENT: 1. Pancolitis 2. Pancreatic cancer 3. Hypokalemia and hypomagnesemia PLAN: - Continue antibiotics. Rocephin and Flagyl. - Continue clear liquid diet - Continue to monitor - Continue to correct electrolytes - Continue IV fluids Physician Publicity Agent note has been reviewed by physician. Signing provider agrees with the documented findings, assessment, and plan of care. Past Medical History Past Medical History: Atrial Fibrillation, Cancer, COPD, Hypertension, Prostate Disorder Additional Past Medical History / Comment(s): a-fib was past hx and was stress induced related to work, Chronic back pain, BPH, pancreatic cancer-new (gallbladder and pain issues since 10/2024) History of Any Multi-Drug Resistant Organisms: None Reported Past Surgical History: Cholecystectomy, Hernia Repair, Orthopedic Surgery, Tonsillectomy Additional Past Surgical History / Comment(s): Rt. carpal tunnel release, bilate ral inguinal hernia repair, colonoscopy, pancreas bx Past Anesthesia/Blood Transfusion Reactions: No Reported Reaction Additional Past Anesthesia/Blood Transfusion Reaction / Comm: n/a Past Psychological History: No Psychological Hx Reported Smoking Status: Former smoker Past Alcohol Use History: Rare Past Drug Use History: Marijuana - Past Family History Father Additional Family Medical History / Comment(s): Father of a lung infection after a lung biopsy. Mother Family Medical History: Dementia, Diabetes Mellitus Additional Family Medical History / Comment(s): Mother is . Medications and Allergies Home Medications Medication Instructions Recorded Confirmed Type Cyclobenzaprine HCl 10 mg PO BID@0800,1600 12/05/18 03/31/25 History Omeprazole [PriLOSEC] 40 mg PO HS@199911/06/24 03/31/25 History Sildenafil Citrate 50 mg PO DAILY@79911/06/24 03/31/25 History Aspirin EC [Ecotrin Low Dose] 81 mg PO DAILY@1400 02/15/25 03/31/25 History DULoxetine HCL [Cymbalta] 30 mg PO DAILY@0800 02/15/25 03/31/25 History Gabapentin [Neurontin] 300 mg PO HS@199902/15/25 03/31/25 History Metoprolol Tartrate [Lopressor] 25 mg PO BID@0800,199902/15/25 03/31/25 History Pantoprazole Sodium [Protonix] 40 mg PO BID@0800,199902/15/25 03/31/25 History Spironolactone [Aldactone] 50 mg PO DAILY@0800 02/15/25 03/31/25 History ursodioL [Ursodiol] 300 mg PO BID@0800,199902/15/25 03/31/25 History Potassium Chloride [Klor-Con M20] 20 meq PO BID@08,199903/25/25 03/31/25 History Tamsulosin [Flomax] 0.4 mg PO HS@199903/25/25 03/31/25 History metOLazone 2.5 mg PO DAILY@00 03/25/25 03/31/25 History ondansetron HCL [Zofran] 8 mg PO TID PRN 03/25/25 03/31/25 History Albuterol Sulfate/Budesonide 2 puff INHALATION RT-Q4H PRN 03/31/25 03/31/25 History [Airsupra 90-80 Mcg Inhaler] Budesonide/Glycopyr/Formoterol 2 puff INHALATION RT-BID 03/31/25 03/31/25 History [Breztri Aerosphere Inhaler] Cholestyramine (with Sugar) 4 gm PO QID PRN 03/31/25 03/31/25 History [Cholestyramine Packet] fentaNYL 25MCG/HR PATCH [Duragesic 1 patch TRANSDERM Q72H 03/31/25 03/31/25 History 25MCG/HR] fentaNYL 50MCG/HR PATCH [Duragesic 1 patch TRANSDERM Q72H 03/31/25 03/31/25 History 50MCG/HR] methocarbamoL 750 mg PO HS@0000 03/31/25 03/31/25 History oxyCODONE HCL [oxyCODONE HCL (IR)] 10 mg PO QID PRN 03/31/25 03/31/25 History oxyCODONE HCL [oxyCODONE HCL (IR)] 20 mg PO Q4H 03/31/25 03/31/25 History Allergies Allergy/AdvReac Type Severity Reaction Status Date / Time pregabalin [From Lyrica] AdvReac AMS Verified 03/31/25 10:08 Surgical - Exam Vital Signs Temp Pulse Resp BP Pulse Ox 98 F 82 18 164/85 98 03/31/25 05:15 03/31/25 05:15 03/31/25 05:15 03/31/25 05:15 03/31/25 05:15 Results - Labs 03/31/25 06:37 04/01/25 05:52 Abnormal Lab Results - Last 24 Hours (Table) 04/01/25 04/01/25 Range/Units 01:22 05:52 Sodium 131 L (135-145) mmol/L Potassium 2.9 L (3.5-5.5) mmol/L Chloride 95 L (96-109) mmol/L BUN 8.6 L (9.0-27.0) mg/dL Creatinine 0.5 L (0.6-1.5) mg/dL Glucose 346 H (70-110) mg/dL Magnesium 1.4 L (1.6-2.3) mg/dL Diabetes panel 04/01/25 Range/Units 05:52 Sodium 131 L (135-145) mmol/L Potassium 2.9 L (3.5-5.5) mmol/L Chloride 95 L (96-109) mmol/L Carbon Dioxide 24.1 (21.6-31.8) mmol/L BUN 8.6 L (9.0-27.0) mg/dL Creatinine 0.5 L (0.6-1.5) mg/dL Glucose 346 H (70-110) mg/dL Calcium 8.7 (8.7-10.3) mg/dL Calcium panel 04/01/25 Range/Units 05:52 Calcium 8.7 (8.7-10.3) mg/dL Pituitary panel 04/01/25 Range/Units 05:52 Sodium 131 L (135-145) mmol/L Potassium 2.9 L (3.5-5.5) mmol/L Chloride 95 L (96-109) mmol/L Carbon Dioxide 24.1 (21.6-31.8) mmol/L BUN 8.6 L (9.0-27.0) mg/dL Creatinine 0.5 L (0.6-1.5) mg/dL Glucose 346 H (70-110) mg/dL Calcium 8.7 (8.7-10.3) mg/dL Adrenal panel 04/01/25 Range/Units 05:52 Sodium 131 L (135-145) mmol/L Potassium 2.9 L (3.5-5.5) mmol/L Chloride 95 L (96-109) mmol/L Carbon Dioxide 24.1 (21.6-31.8) mmol/L BUN 8.6 L (9.0-27.0) mg/dL Creatinine 0.5 L (0.6-1.5) mg/dL Glucose 346 H (70-110) mg/dL Calcium 8.7 (8.7-10.3) mg/dL
[2025-04-01] MEDS: POTASSIUM CHLORIDE ER 20 MEQ TAB.ER PO SCH ×2 (12:10→18:00)
[2025-04-01] MEDS: MAGNESIUM SULFATE-D5W PMX 1 GM in DEXTROSE/WATER 1 100ML.BAG IVPB SCH (13:07)
--- NOTE | 2025-04-01 13:10 | US ---
EXAMINATION TYPE: US venous doppler duplex LE BI DATE OF EXAM: 04/01/2025 12:44 PM COMPARISON: NONE CLINICAL INDICATION: Male, 64 years old with history of BLE edema; Patient denies any signs, symptoms , or relevant history TECHNIQUE: The lower extremity deep venous system is examined utilizing real time linear array sonog zara with graded compression, doppler sonography and color-flow sonography. Grayscale, color doppler , spectral doppler imaging performed of the deep veins of the lower extremities FINDINGS: SIDE PERFORMED: Bilateral VESSELS IMAGED: Common Femoral Vein Deep Femoral Vein Greater Saphenous Vein * Femoral Vein Popliteal Vein Small Saphenous Vein * Proximal Calf Veins (* superficial vessels) Right Leg: Negative for DVT; There is normal flow, compressibility, vascular waveforms. Left Leg: Negative for DVT; There is normal flow, compressibility, vascular waveforms. Enlarged lymph nodes seen within bilateral groin areas IMPRESSION: 1. Bilateral lower extremity ultrasound negative for deep venous thrombosis. 2. Bilateral inguinal adenopathy. [facility], Workstation: [facility], 04/01/2025 1:08 PM
--- NOTE | 2025-04-01 15:56 | MR ---
EXAMINATION TYPE: MR abdomen wo/w con DATE OF EXAM: 04/01/2025 3:14 PM INDICATION: Patient age:Male; 64 years old; Reason for study: hx pancreatic cancer, increased abd pain; PHH. COMPARISON: CT scan of pelvis 03/31/2025, 02/15/2025, 02/03/2025, 11/05/2024 TECHNIQUE: Multiplanar multi-sequence imaging was performed without and with IV contrast. The patie nt was given 9 ccs of Gadobutrol intravenously and dynamic imaging was performed. Post IV contrast garnica btraction images were also submitted for review. FINDINGS: LOWER CHEST: Mild cardiomegaly.. ABDOMEN Liver: Right hepatic lobe subcentimeter cyst. Noncirrhotic morphology. Diffuse dropout of signal on o ut of phase imaging consistent with steatosis. No suspicious enhancing hepatic lesion. Gallbladder and Bile ducts: Gallbladder surgically absent. Redemonstration of common bile duct stent. Pneumobilia redemonstrated. Mild intrahepatic biliary ductal dilatation. Pancreas: Redemonstration of hypoenhancing pancreatic head mass measuring 4.6 x 3.7 cm. There is colton pheral enhancement with dilated appearance of the main pancreatic duct measuring up to 8 mm in the janusz dy again. There is abutment of the SMA with less than 180 degree involvement. Encasement of the commo n hepatic artery. Spleen: Mildly enlarged measuring 14.6 cm in CC dimension. Adrenal glands: Right adrenal gland is unremarkable. Left adrenal gland nodule redemonstrated measuri ng up to 1.6 centers with some heterogenous enhancement. No drop in signal on a phase imaging. Kidneys: Unremarkable. Stomach and Bowel: Unremarkable as visualized. Peritoneum: No evidence of pneumoperitoneum . Subcentimeter peripancreatic prominent lymph nodes pravin ntified. Trace ascites within the abdomen and pelvis. Mesenteric edema redemonstrated. Vasculature: No abdominal aortic aneurysm. The celiac axis, SMA, bilateral renal arteries and LETTY are widely patent. There are 2 right-sided renal arteries. The GDA and hepatic arteries are patent. The portal venous system is patent however there is significant narrowing at the portal confluence due to the lesion. The pancreatic lesion encases the common hepatic artery which is patent. Abdominal wall: Unremarkable. Musculoskeletal: The osseous structures appear intact. IMPRESSION: 1. Overall grossly similar appearance of pancreatic head cancer with biliary ductal dilatation with common bile duct stent and pneumobilia, and severe narrowing of the portal venous confluence with enc asement of the common hepatic artery. Couple of prominent peripancreatic lymph nodes concerning for m etastasis with additional left adrenal gland nodule concerning for metastasis again. 2. Hepatic steatosis. 3. Mild splenomegaly. [facility], , 04/01/2025 3:53 PM
[2025-04-01] MEDS: ALBUTEROL NEBULIZED 2.5 MG/3 ML INHALATION PRN (15:59)
--- NOTE | 2025-04-01 16:52 | HP ---
HISTORY AND PHYSICAL HISTORY OF PRESENT ILLNESS: A 64-year-old white male, history of COPD, pancreatic cancer, metastasized, hypertensive, BPH, atrial fibrillation, chronic back pain with herniated disc, history of pancreatic cancer with recent bile duct obstruction. He has got first chemo next Sunday. He has began severe abdominal pain, hypogastric area for the last 2 days, intermittent, nonradiating, was found on CAT scan to have severe colitis, admitted for IV antibiotics and steroids. Pain control was adjusted down at [facility]. RECENT MEDICATIONS: Please see list. ALLERGIES: Pregabalin. FAMILY HISTORY: Father lung infection. Mother with dementia, diabetes mellitus. SOCIAL HISTORY: He is a former smoker. PHYSICAL EXAMINATION: VITAL SIGNS: Stable, afebrile. CARDIOVASCULAR: S1, S2. LUNGS: Transmitted upper airway sounds. GI: Soft, nontender. HEMATOLOGY: Negative Homans. PSYCH: Fair mood and affect. OPHTHALMOLOGIC: Pupils equal, round and intact. NEUROLOGIC: Cranial nerves intact. VITAL SIGNS: Temperature 98, pulse 87 to 82, blood pressure is 130s-160s/70s-80s, O2 99% to 98% on room air. ASSESSMENT AND PLAN: Chronic obstructive pulmonary disease, nicotine addiction, long-standing history of smoking, pancreatic cancer, metastases, chronic pain syndrome, bile duct obstruction. Prognosis is extremely guarded. Pancolitis, we will give IV antibiotics, IV steroids, await for Surgical review and consult. MMSHAHRAML / SONY: [id number] /
[2025-04-01 17:43] LABS: Magnesium 1.9 mg/dL (1.6-2.3); Potassium 3.3 mmol/L (3.5-5.1)
[2025-04-01] MEDS ORDERED: Potassium Replacement Protocol 1 EACH MISC MISCELLANE PRN (17:47)
[2025-04-01] MEDS ORDERED: POTASSIUM CHLORIDE 20 MEQ in WATER FOR INJECTION 1 100ML.BAG IVPB SCH (18:00)
--- NOTE | 2025-04-01 19:22 | P.CONS ---
History of Present Illness - Reason for Consult Consult date: 04/01/25 pancreatic cancer Requesting physician: Tam Harris - Chief Complaint abd pain - History of Present Illness Mr. Bustillos is a 64-year-old gentleman with a history of pancreatic cancer who follows with Dr. Neil Guillen. He began having intermittent abdominal discomfort in October 2024. He did have a laparoscopic cholecystectomy in November 2024, which did not relieve his abdominal pain. In January 2025, he began having abdominal and back pain that became progressively worse in nature. He presented to [facility] on 02/03/[address] abdomen/pelvis with IV contrast revealing obstructing pancreatic head mass measuring 4.3 x 4.4 cm with severe intrahepatic and extrahepatic biliary ductal dilatation. Labs did reveal hyperbilirubinemia with total bilirubin of 3.9. He was subsequently transferred to [facility] where he underwent ERCP with EUS on 02/05/2025. At that time, he was found to have dilatation in the common bile duct measuring up to 1 cm and underwent metal stent placement along with sphincterotomy and FNA of the pancreatic head mass. Unfortunately, this was nondiagnostic. CT of the pancreas on 02/06/2025 revealed 4.7 x 3.8 x 3.8 cm hypoenhancing pancreatic head mass with multiple enlarged periportal/peripancreatic and portacaval lymph nodes with encasement of the upper SMV and proximal portal vein with moderate to severe narrowing of the upper SMV and portal vein. There was a 5 mm hypodensity in the right hepatic lobe that was too small to characterize as well as bilateral adrenal gland nodules measuring up to 1.9 cm that was suspicious for adenomas. CT of the chest revealed small pulmonary nodules measuring 4 mm in the right upper lobe and 1 to 2 mm subpleural nodules in the right upper lobe. He was again admitted to [facility] on 02/15/2025 with intractable back pain and was again transferred to [facility] to have repeat EGD with EUS that was performed on 02/19/2025. Repeat biopsy of the pancreatic head mass revealed malignant cells consistent with adenocarcinoma. Most recent CA 19-9 on 02/20/2025 prior to discharge from [facility] was noted to be 53.5. His case was reviewed at [facility] multidisciplinary tumor board and was deemed to be not a surgical candidate and did not qualify for any clinical trials at [facility]. Based on the workup above, he has evidence of stage III pancreatic adenocarcinoma (T3 N2 M0). We did discuss schedule, route administration, and toxicities of FOLFIRINOX versus Abraxane/gemcitabine. Following discussion, we did elect to proceed with FOLFIRINOX every 2 weeks for 6-8 cycles before obtaining repeat staging imaging. He is scheduled for cycle 1 on 04/07/25. At his last office visit, his fentanyl patch was increased to 75mcg from 50mcg. And oxycodone 15mg q4hrs prn. Patient presented to the emergency room for complaints of progressing abdominal pain. On admit CT abdomen pelvis without contrast showed known pancreatic mass had mass, slight large at 5.4 cm or 4.4 cm. Some mid abdominal lymph nodes just adjacent to increase in size as well 1.8 cm first 1.0 cm. Metallic biliary stent remains in place. New generalized mesenteric edema throughout. Diffuse fold thickening of the colon to a greater degree involving the ascending colon. Consider moderate infectious versus inflammatory pancolitis. Trace pelvic free fluid likely reactive. IV antibiotics been started and general surgery consulted. WBC 5.6, hemoglobin 12.5, platelets 197,000. Creatinine 0.5, GFR greater than 90. ALP 277. Bilirubin, ALT, AST WNL. Patient is reporting improvement in abdominal pain on current pain regimen. Complaining of bilateral lower extremity edema. Denies shortness of breath and chest pain. He denies vomiting but has reported mild intermittent nausea. Denies fever and chills. No recent sick contacts. Review of Systems 10 point ROS is negative except as stated in the HPI Past Medical History Past Medical History: Atrial Fibrillation, Cancer, COPD, Hypertension, Prostate Disorder Additional Past Medical History / Comment(s): a-fib was past hx and was stress induced related to work, Chronic back pain, BPH, pancreatic cancer-new (g allbladder and pain issues since 10/2024) History of Any Multi-Drug Resistant Organisms: None Reported Past Surgical History: Cholecystectomy, Hernia Repair, Orthopedic Surgery, Tonsillectomy Additional Past Surgical History / Comment(s): Rt. carpal tunnel release, bilateral inguinal hernia repair, colonoscopy, pancreas bx Past Anesthesia/Blood Transfusion Reactions: No Reported Reaction Additional Past Anesthesia/Blood Transfusion Reaction / Comm: n/a Past Psychological History: No Psychological Hx Reported Smoking Status: Former smoker Past Alcohol Use History: Rare Past Drug Use History: Marijuana - Past Family History Father Additional Family Medical History / Comment(s): Father of a lung infection after a lung biopsy. Mother Family Medical History: Dementia, Diabetes Mellitus Additional Family Medical History / Comment(s): Mother is . Medications and Allergies Home Medications Medication Instructions Recorded Confirmed Type Cyclobenzaprine HCl 10 mg PO BID@0800,1600 12/05/18 03/31/25 History Omeprazole [PriLOSEC] 40 mg PO HS@199911/06/24 03/31/25 History Sildenafil Citrate 50 mg PO DAILY@0800 11/06/24 03/31/25 History Aspirin EC [Ecotrin Low Dose] 81 mg PO DAILY@1400 02/15/25 03/31/25 History DULoxetine HCL [Cymbalta] 30 mg PO DAILY@0800 02/15/25 03/31/25 History Gabapentin [Neurontin] 300 mg PO HS@199902/15/25 03/31/25 History Metoprolol Tartrate [Lopressor] 25 mg PO BID@0800,199902/15/25 03/31/25 History Pantoprazole Sodium [Protonix] 40 mg PO BID@0800,199902/15/25 03/31/25 History Spironolactone [Aldactone] 50 mg PO DAILY@0800 02/15/25 03/31/25 History ursodioL [Ursodiol] 300 mg PO BID@0800,199902/15/25 03/31/25 History Potassium Chloride [Klor-Con M20] 20 meq PO BID@0800,199903/25/25 03/31/25 History Tamsulosin [Flomax] 0.4 mg PO HS@199903/25/25 03/31/25 History metOLazone 2.5 mg PO DAILY@0800 03/25/25 03/31/25 History ondansetron HCL [Zofran] 8 mg PO TID PRN 03/25/25 03/31/25 History Albuterol Sulfate/Budesonide 2 puff INHALATION RT-Q4H PRN 03/31/25 03/31/25 History [Airsupra 90-80 Mcg Inhaler] Budesonide/Glycopyr/Formoterol 2 puff INHALATION RT-BID 03/31/25 03/31/25 History [Breztri Aerosphere Inhaler] Cholestyramine (with Sugar) 4 gm PO QID PRN 03/31/25 03/31/25 History [Cholestyramine Packet] fentaNYL 25MCG/HR PATCH [Duragesic 1 patch TRANSDERM Q72H 03/31/25 03/31/25 History 25MCG/HR] fentaNYL 50MCG/HR PATCH [Duragesic 1 patch TRANSDERM Q72H 03/31/25 03/31/25 History 50MCG/HR] methocarbamoL 750 mg PO HS@0000 03/31/25 03/31/25 History oxyCODONE HCL [oxyCODONE HCL (IR)] 10 mg PO QID PRN 03/31/25 03/31/25 History oxyCODONE HCL [oxyCODONE HCL (IR)] 20 mg PO Q4H 03/31/25 03/31/25 History Allergies Allergy/AdvReac Type Severity Reaction Status Date / Time pregabalin [From Lyrica] AdvReac AMS Verified 03/31/25 10:08 Physical Exam Vitals: Vital Signs Temp Pulse Resp BP Pulse Ox 04/01/25 08:00 98.0 F 75 18 130/79 98 04/01/25 01:17 98.0 F 67 18 139/81 99 03/31/25 19:22 97.9 F 81 18 132/79 97 03/31/25 12:45 79 18 138/87 99 Intake and Output 03/31/25 04/01/25 04/01/25 22:59 06:59 14:59 Intake Total 1160 540 Balance 1160 540 Intake: Oral 1160 540 Other: # Voids 2 1 - Constitutional General appearance: average body habitus, no acute distress - EENT Eyes: anicteric sclerae, EOMI ENT: hearing grossly normal - Respiratory breathing is even and unlabored - Cardiovascular skin warm and dry - Gastrointestinal General gastrointestinal: no distended, soft, tenderness - Integumentary Integumentary: no cyanotic, no jaundiced - Psychiatric Psychiatric: A&O x's 3 Results CBC & Chem 7: 03/31/25 06:37 04/01/25 17:14 Labs: Abnormal Lab Results - Last 24 Hours (Table) 04/01/25 04/01/25 Range/Units 01:22 05:52 Sodium 131 L (135-145) mmol/L Potassium 2.9 L (3.5-5.5) mmol/L Chloride 95 L (96-109) mmol/L BUN 8.6 L (9.0-27.0) mg/dL Creatinine 0.5 L (0.6-1.5) mg/dL Glucose 346 H (70-110) mg/dL Magnesium 1.4 L (1.6-2.3) mg/dL CT scan - abdomen: report reviewed US - abdomen: report reviewed Assessment and Plan (1) Pancreatic adenocarcinoma Current Visit: Yes Status: Acute Code(s): C25.9 - MALIGNANT NEOPLASM OF PANCREAS, UNSPECIFIED SNOMED Code(s): 057483426 (2) Abdominal pain Current Visit: Yes Status: Acute Code(s): R10.9 - UNSPECIFIED ABDOMINAL PAIN SNOMED Code(s): 68175658 Plan: Abdominal pain: Presented to the emergency room for complaints of progressing abdominal pain. -On admit CT abdomen pelvis without contrast showed known pancreatic mass had mass, slight large at 5.4 cm or 4.4 cm. Some mid abdominal lymph nodes just adjacent to increase in size as well 1.8 cm first 1.0 cm. Metallic biliary stent remains in place. New generalized mesenteric edema throughout. Diffuse fold thickening of the colon to a greater degree involving the ascending colon. Consider moderate infectious versus inflammatory pancolitis. Trace pelvic free fluid likely reactive. -IV antibiotics been started and general surgery consulted. -Clear liquid diet -Pain meds adjusted, reporting pain controlled on current regimen -Unsure of etiology, could be r/t progression of malignancy vs other etiologies like pancolitis, vs mesenteric or portal vein thrombosis. Spoke with radiologist, to further evaluate recommends MRI abdomen w/ contrast. Will also obtain BLE dopplers to r/o DVTs Pancreatic adenocarcnioma: -Oncology history as dictated in the HPI -Scheduled to start FOLFIRINOX on 04/07. Pending course of hospitalization, may need to delay treatment by 1 week -Clinic f/u upon discharge Doctor attests: I performed a history and physical examination of this patient, developed impression and plan of care. Discussed with dictator. I agree with dictators note, documented as a scribe.
--- NOTE | 2025-04-02 01:52 | PN ---
PROGRESS NOTE SUBJECTIVE: This is a 64-year-old white male who appears to be improvement with his abdominal pain. Pain control was readjusted by Pain Clinic. OBJECTIVE: VITAL SIGNS: Stable. Afebrile. CARDIOVASCULAR: S1, S2. LUNGS: Clear. GI: Soft. HEMATOLOGY: Negative Homans. He is ambulating. Possibly discharge home tomorrow on oral Flagyl and oral prednisone. Pain control as mentioned above. Prognosis is guarded. MMODL / IJN: [id number] /
[2025-04-02 06:57] LABS: Basophils # (A) 0.01 10*3/uL (0.00-0.10); Basophils % (A) 0.2 %; Eosinophils # (A) 0.00 10*3/uL (0.04-0.35); Eosinophils % (A) 0.0 %; HCT 31.1 % (39.6-50.0); HGB 10.3 g/dL (13.0-17.0); Lymphocytes # (A) 0.33 10*3/uL (0.90-5.00); Lymphocytes % (A) 5.9 %; MCH 27.2 pg (27.0-32.0); MCHC 33.1 g/dL (32.0-37.0); MCV 82.3 fL (80.0-97.0); Monocytes # (A) 0.28 10*3/uL (0.20-1.00); Monocytes % (A) 5.0 %; Neutrophils # (A) 4.96 10*3/uL (1.80-7.70); Neutrophils % (A) 88.5 %; Platelet Count 185 10*3/uL (140-440); RBC 3.78 10*6/uL (4.40-5.60); RDW 13.2 % (11.5-14.5); WBC 5.60 10*3/uL (4.50-10.00)
[2025-04-02 10:40] LABS: ALT 33 U/L (10-49); AST 20 U/L (14-35); Albumin 3.6 g/dL (3.8-4.9); Albumin/Globulin Ratio 1.89 Ratio (1.60-3.17); Alkaline Phosphatase 265 U/L (41-126); Anion Gap 7.90 mmol/L (4.00-12.00); BUN/Creat Ratio 13.80 Ratio (12.00-20.00); Blood Urea Nitrogen 6.9 mg/dL (9.0-27.0); Calcium 9.0 mg/dL (8.7-10.3); Carbon Dioxide 25.1 mmol/L (21.6-31.8); Chloride 101 mmol/L (96-109); Globulin 1.9 g/dL (1.6-3.3); Glucose 297 mg/dL (70-110); Potassium 4.6 mmol/L (3.5-5.5); Sodium 134 mmol/L (135-145); Total Protein 5.5 g/dL (6.2-8.2)
--- NOTE | 2025-04-02 12:50 | P.GSCN ---
History of Present Illness Consult date: 04/02/25 Reason for Consult: Severe narrowing portal venous confluence, encasement common hepatic artery Requesting physician: Irving Medina History of present illness: This a pleasant 64-year-old male with multiple comorbidities including COPD, hypertension, BPH atrial fibrillation chronic back pain and recently diagnosed stage III pancreatic adenocarcinoma diagnosed in February of this year deemed nonoperable by tumor board at [facility]. He follows with Dr. Guillen with oncology and patient is scheduled to start chemotherapy on 04/07/2025. Patient had presented to the emergency department 2 days ago with abdominal pain which he reports as recurrent and sharp mid abdomen. He had a CT of the abdomen pelvis without contrast in the emergency department with findings of possible pancolitis/gastritis. General surgery consulted and following with no plans for any surgical intervention. Currently on IV antibiotics. He also had a MRI of the abdomen with and without contrast that reported severe narrowing of the portal venous confluence with encasement of the common hepatic artery. Vascular surgery was consulted for narrowing of portal venous confluence with encasement of common hepatic artery. Patient states pain mostly starts in the lower back goes up to the mid back and wraps around his sides. Pain improved with increased pain medication. He has some nausea but no vomiting. States bowel movements have been normal, no diarrhea or constipation. Review of Systems A 14 point review systems was completed all pertinent positives and negatives as stated in the HPI. Past Medical History Past Medical History: Atrial Fibrillation, Cancer, COPD, Hypertension, Prostate Disorder Additional Past Medical History / Comment(s): a-fib was past hx and was stress induced related to work, Chronic back pain, BPH, pancreatic cancer-new (gallbladder and pain issues since 10/2024) History of Any Multi-Drug Resistant Organisms: None Reported Past Surgical History: Cholecystectomy, Hernia Repair, Orthopedic Surgery, Tonsillectomy Additional Past Surgical History / Comment(s): Rt. carpal tunnel release, bilateral inguinal hernia repair, colonoscopy, pancreas bx Past Anesthesia/Blood Transfusion Reactions: No Reported Reaction Additional Past Anesthesia/Blood Transfusion Reaction / Comm: n/a Past Psychological History: No Psychological Hx Reported Smoking Status: Former smoker Past Alcohol Use History: Rare Past Drug Use History: Marijuana - Past Family History Father Additional Family Medical History / Comment(s): Father of a lung infection after a lung biopsy. Mother Family Medical History: Dementia, Diabetes Mellitus Additional Family Medical History / Comment(s): Mother is . Medications and Allergies Home Medications Medication Instructions Recorded Confirmed Type Cyclobenzaprine HCl 10 mg PO BID@0800,1600 12/05/18 03/31/25 History Omeprazole [PriLOSEC] 40 mg PO HS@199911/06/24 03/31/25 History Sildenafil Citrate 50 mg PO DAILY@0800 11/06/24 03/31/25 History Aspirin EC [Ecotrin Low Dose] 81 mg PO DAILY@1400 02/15/25 03/31/25 History DULoxetine HCL [Cymbalta] 30 mg PO DAILY@0800 02/15/25 03/31/25 History Gabapentin [Neurontin] 300 mg PO HS@199902/15/25 03/31/25 History Metoprolol Tartrate [Lopressor] 25 mg PO BID@0800,199902/15/25 03/31/25 History Pantoprazole Sodium [Protonix] 40 mg PO BID@0800,199902/15/25 03/31/25 History Spironolactone [Aldactone] 50 mg PO DAILY@0800 02/15/25 03/31/25 History ursodioL [Ursodiol] 300 mg PO BID@0800,199902/15/25 03/31/25 History Potassium Chloride [Klor-Con M20] 20 meq PO BID@0800,199903/25/25 03/31/25 History Tamsulosin [Flomax] 0.4 mg PO HS@199903/25/25 03/31/25 History metOLazone 2.5 mg PO DAILY@0803/25/25 03/31/25 History ondansetron HCL [Zofran] 8 mg PO TID PRN 03/25/25 03/31/25 History Albuterol Sulfate/Budesonide 2 puff INHALATION RT-Q4H PRN 03/31/25 03/31/25 History [Airsupra 90-80 Mcg Inhaler] Budesonide/Glycopyr/Formoterol 2 puff INHALATION RT-BID 03/31/25 03/31/25 History [Breztri Aerosphere Inhaler] Cholestyramine (with Sugar) 4 gm PO QID PRN 03/31/25 03/31/25 History [Cholestyramine Packet] fentaNYL 25MCG/HR PATCH [Duragesic 1 patch TRANSDERM Q72H 03/31/25 03/31/25 H istory 25MCG/HR] fentaNYL 50MCG/HR PATCH [Duragesic 1 patch TRANSDERM Q72H 03/31/25 03/31/25 History 50MCG/HR] methocarbamoL 750 mg PO HS@0000 03/31/25 03/31/25 History oxyCODONE HCL [oxyCODONE HCL (IR)] 10 mg PO QID PRN 03/31/25 03/31/25 History oxyCODONE HCL [oxyCODONE HCL (IR)] 20 mg PO Q4H 03/31/25 03/31/25 History Allergies Allergy/AdvReac Type Severity Reaction Status Date / Time pregabalin [From Lyrica] AdvReac AMS Verified 03/31/25 10:08 Surgical - Exam Vital Signs Temp Pulse Resp BP Pulse Ox 98 F 82 18 164/85 98 03/31/25 05:15 03/31/25 05:15 03/31/25 05:15 03/31/25 05:15 03/31/25 05:15 General appearance: The patient is alert, oriented, appears in no acute dist ress. HET: Head is normocephalic and atraumatic. Pupils are equal and reactive. Neck: Supple. Heart: Regular. Lungs: Equal expansion, normal respiratory effort. Abdomen: Soft, tenderness, nondistended. Extremities: Normal skin color and turgor. Neurological: Alert and oriented. Results - Labs 04/02/25 06:28 04/02/25 06:28 Abnormal Lab Results - Last 24 Hours (Table) 04/01/25 04/02/25 04/02/25 Range/Units 17:14 06:28 06:28 RBC 3.78 L (4.40-5.60) 10*6/uL Hgb 10.3 L (13.0-17.0) g/dL Hct 31.1 L (39.6-50.0) % Lymphocytes # 0.33 L (0.90-5.00) 10*3/uL Eosinophils # 0.00 L (0.04-0.35) 10*3/uL Sodium 134 L (135-145) mmol/L Potassium 3.3 L (3.5-5.1) mmol/L BUN 6.9 L (9.0-27.0) mg/dL Creatinine 0.5 L (0.6-1.5) mg/dL Glucose 297 H (70-110) mg/dL Alkaline Phosphatase 265 H (41-126) U/L Total Protein 5.5 L (6.2-8.2) g/dL Albumin 3.6 L (3.8-4.9) g/dL Diabetes panel 04/01/25 04/01/25 04/02/25 Range/Units 17:14 22:39 06:28 Sodium 134 L (135-145) mmol/L Potassium 3.3 L 4.3 4.6 (3.5-5.1) mmol/L Chloride 101 (96-109) mmol/L Carbon Dioxide 25.1 (21.6-31.8) mmol/L BUN 6.9 L (9.0-27.0) mg/dL Creatinine 0.5 L (0.6-1.5) mg/dL Glucose 297 H (70-110) mg/dL Calcium 9.0 (8.7-10.3) mg/dL AST 20 (14-35) U/L ALT 33 (10-49) U/L Alkaline Phosphatase 265 H (41-126) U/L Total Protein 5.5 L (6.2-8.2) g/dL Albumin 3.6 L (3.8-4.9) g/dL Calcium panel 04/02/25 Range/Units 06:28 Calcium 9.0 (8.7-10.3) mg/dL Albumin 3.6 L (3.8-4.9) g/dL Pituitary panel 04/01/25 04/01/25 04/02/25 Range/Units 17:14 22:39 06:28 Sodium 134 L (135-145) mmol/L Potassium 3.3 L 4.3 4.6 (3.5-5.1) mmol/L Chloride 101 (96-109) mmol/L Carbon Dioxide 25.1 (21.6-31.8) mmol/L BUN 6.9 L (9.0-27.0) mg/dL Creatinine 0.5 L (0.6-1.5) mg/dL Glucose 297 H (70-110) mg/dL Calcium 9.0 (8.7-10.3) mg/dL Adrenal panel 04/01/25 04/01/25 04/02/25 Range/Units 17:14 22:39 06:28 Sodium 134 L (135-145) mmol/L Potassium 3.3 L 4.3 4.6 (3.5-5.1) mmol/L Chloride 101 (96-109) mmol/L Carbon Dioxide 25.1 (21.6-31.8) mmol/L BUN 6.9 L (9.0-27.0) mg/dL Creatinine 0.5 L (0.6-1.5) mg/dL Glucose 297 H (70-110) mg/dL Calcium 9.0 (8.7-10.3) mg/dL Total Bilirubin 0.3 (0.3-1.2) mg/dL AST 20 (14-35) U/L ALT 33 (10-49) U/L Alkaline Phosphatase 265 H (41-126) U/L Total Protein 5.5 L (6.2-8.2) g/dL Albumin 3.6 L (3.8-4.9) g/dL - Imaging Comments: Abdominal MRI without and with contrast reports overall grossly similar appearance of pancreatic head cancer with biliary ductal dilation with common bile duct stent and pneumobilia and severe narrowing of the portal venous confluence with encasement of the common hepatic artery. Couple of prominent. Pancreatic lymph nodes concerning for metastasis with additional left adrenal gland nodule concerning for metastasis again. Hepatic steatosis. Mild splenomegaly. CT abdomen pelvis without contrast for his known pancreatic head mass. Limited assessment by noncontrast CT. However estimated slightly larger at 5.4 cm versus 4.4 cm previously. Submitted abdominal lymph nodes just adjacent have increased in size as well currently 1.8 cm versus 1.0 cm previously. Metallic biliary stent remains in place with similar pneumobilia and hepatic steatosis. New generalized mesenteric edema throughout could reflect third spacing or inflammatory change. We do note diffuse fold thickening of the colon to a greater degree involving the ascending colon. Consider it moderate infectious or inflammatory pancolitis. Trace pelvic free fluid likely reactive as well. Small hiatal hernia with additional fold thickening at the gastric fundus and proximal body of the stomach could reflect a concurrent gastritis. Small mesenteric nodules within the hiatal hernia are also new and could represent reactive lymph nodes or metastatic disease. Redemonstrated splenomegaly at 15.7 cm. Correlate for possible bronchitis and visualized lower lungs. Assessment and Plan Assessment: 1. 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 Pancreatic adenocarcinoma 3. Abdominal pain 4. Possible colitis Plan: 1. There is no indication for any vascular surgical intervention and no indication for any anticoagulation 2. Continue current pain management regimen 3. Diet as tolerated 4. Continue with recommendations from oncology. Patient to start treatment 04/07/2025. Thank you for this consultation. We will sign off at this time. The impression and plan of care has been dictated as directed. I performed a history and examination of this patient, discussed the same with the dictator. I agree with the dictator's note ,documented as a scribe. Any additional findings or plans will be noted.
--- NOTE | 2025-04-02 13:15 | P.PN ---
Subjective Progress Note Date: 04/02/25 SURGICAL PROGRESS NOTE CHIEF COMPLAINT: Abdominal pain HISTORY OF PRESENT ILLNESS: Patient reports his pain is controlled and a little less than yesterday. He is having bowel movements that are normal with no blood noted. He is tolerating the clear liquids. He feels that he could have his diet advanced. Afebrile. WBC 5.6 Hgb 10.3 potassium is 4.3 magnesium 1.9. MRI abdomen overall grossly similar appearance of pancreatic head cancer with biliary ductal dilatation with common bile duct stent and pneumobilia. Severe narrowing of the portal venous confluence with encasement of the common hepatic artery. Couple of prominent peripancreatic lymph nodes concerning for metastasis with additional left adrenal gland nodule concerning for metastasis. PHYSICAL EXAM: VITAL SIGNS: Reviewed. GENERAL: Well-developed in no acute distress. HEENT: No sclera icterus. Extraocular movements grossly intact. Moist buccal mucosa. Head is atraumatic, normocephalic. ABDOMEN: Soft. Nondistended. Mild tenderness epigastric area. Tenderness palpation mid abdomen NEUROLOGIC: Alert and oriented. Cranial nerves II through XII grossly intact. ASSESSMENT: 1. Colitis 2. Pancreatic cancer 3. Hypokalemia and hypomagnesemia improved PLAN: - Continue antibiotics - Advance diet to full liquids Physician Eggs Inspector note has been reviewed by physician. Signing provider agrees with the documented findings, assessment, and plan of care. Attestation Patient seen and examined at bedside on 04/02/2025. Presented with chief complaint of abdominal pain. He is noted to have pancreatic cancer with Med iport in place. He is to begin chemotherapy in the next week. There is severe narrowing of the portal venous confluence with encasement of the common hepatic artery and vascular surgery is consulted for this purpose. Will discuss with oncology whether outpatient endoscopy would be required prior to or during his chemotherapy. Currently, no need for inpatient endoscopy. Gabriel Nash, Objective - Vital Signs Vital signs: Vital Signs Temp 97.7 F 04/02/25 07:37 Pulse 71 04/02/25 07:37 Resp 20 04/02/25 07:37 BP 144/86 04/02/25 07:37 Pulse Ox 98 04/02/25 07:37 FiO2 Intake & Output 04/01/25 04/02/25 04/02/25 18:59 06:59 18:59 Intake Total 480 Balance 480 Intake: Oral 480 Other: Voiding Method Toilet Toilet # Voids 4 # Bowel Movements 1 - Labs CBC & Chem 7: 04/02/25 06:28 04/02/25 06:28 Labs: Abnormal Lab Results - Last 24 Hours (Table) 04/01/25 04/02/25 Range/Units 17:14 06:28 RBC 3.78 L (4.40-5.60) 10*6/uL Hgb 10.3 L (13.0-17.0) g/dL Hct 31.1 L (39.6-50.0) % Lymphocytes # 0.33 L (0.90-5.00) 10*3/uL Eosinophils # 0.00 L (0.04-0.35) 10*3/uL Potassium 3.3 L (3.5-5.1) mmol/L
[2025-04-02 13:48] VITALS: RESP 16
--- NOTE | 2025-04-02 16:35 | P.PN ---
Subjective Progress Note Date: 04/02/25 No acute events overnight. Pt reporting improvement in pain since admit, pain is at constant 6/10 while on pain regimen. Reports goal of pain is 4-5. Will make adjustment to pain regimen Denies n/v, tolerating oral intake. Objective - Vital Signs Vital signs: Vital Signs Temp 97.7 F 04/02/25 07:37 Pulse 71 04/02/25 07:37 Resp 20 04/02/25 07:37 BP 144/86 04/02/25 07:37 Pulse Ox 98 04/02/25 07:37 FiO2 Intake & Output 04/01/25 04/02/25 04/02/25 18:59 06:59 18:59 Intake Total 480 Balance 480 Intake: Oral 480 Other: Voiding Method Toilet Toilet # Voids 4 # Bowel Movements 1 - Constitutional General appearance: Present: no acute distress - EENT Eyes: Present: anicteric sclerae, EOMI ENT: Present: hearing grossly normal - Respiratory Details: breathing is even and unlabored - Cardiovascular Details: skin warm and dry - Integumentary Integumentary: Absent: cyanotic, jaundiced - Psychiatric Psychiatric: Present: A&O x's 3 - Labs CBC & Chem 7: 04/02/25 06:28 04/02/25 06:28 Labs: Abnormal Lab Results - Last 24 Hours (Table) 04/01/25 04/02/25 04/02/25 Range/Units 17:14 06:28 06:28 RBC 3.78 L (4.40-5.60) 10*6/uL Hgb 10.3 L (13.0-17.0) g/dL Hct 31.1 L (39.6-50.0) % Lymphocytes # 0.33 L (0.90-5.00) 10*3/uL Eosinophils # 0.00 L (0.04-0.35) 10*3/uL Sodium 134 L (135-145) mmol/L Potassium 3.3 L (3.5-5.1) mmol/L BUN 6.9 L (9.0-27.0) mg/dL Creatinine 0.5 L (0.6-1.5) mg/dL Glucose 297 H (70-110) mg/dL Alkaline Phosphatase 265 H (41-126) U/L Total Protein 5.5 L (6.2-8.2) g/dL Albumin 3.6 L (3.8-4.9) g/dL - Imaging and Cardiology MRI - abdomen: report reviewed Assessment and Plan (1) Pancreatic adenocarcinoma Current Visit: Yes Status: Acute Code(s): C25.9 - MALIGNANT NEOPLASM OF PANCREAS, UNSPECIFIED SNOMED Code(s): 294483352 (2) Abdominal pain Current Visit: Yes Status: Acute Code(s): R10.9 - UNSPECIFIED ABDOMINAL PAIN SNOMED Code(s): 83806363 Plan: Abdominal pain: Presented to the emergency room for complaints of progressing abdominal pain. -On admit CT abdomen pelvis without contrast showed known pancreatic mass had mass, slight large at 5.4 cm or 4.4 cm. Some mid abdominal lymph nodes just adjacent to increase in size as well 1.8 cm first 1.0 cm. Metallic biliary stent remains in place. New generalized mesenteric edema throughout. Diffuse fold thickening of the colon to a greater degree involving the ascending colon. Consider moderate infectious versus inflammatory pancolitis. Trace pelvic free fluid likely reactive. -IV antibiotics been started and general surgery following -Tolerating clear liquid diet. Advanced to full liquid today -Pain meds adjusted, Fentanyl patch increased to 125mcg -Etiology of abd pain is not clear at this time, could be r/t progression of malignancy vs other etiologies like pancolitis, vs mesenteric or portal vein thrombosis. Spoke with radiologist, to further evaluate recommends MRI abdomen w/ contrast. -MRI abdomen showing similar appearance of pancreatic head cancer, biliary duct dilatation common bile duct stent and pneumobilia. Severe narrowing of the portal venous confluence with encasement of the common hepatic artery. Couple prominent peripancreatic lymph nodes with additional left adrenal gland nodule. -Will consult vascular surgery to evaluate scan to see if patient would benefit from stenting. -BLE dopplers negative for DVTs Pancreatic adenocarcnioma: -Oncology history as dictated in the HPI -Scheduled to start FOLFIRINOX on 04/07. Pending course of hospitalization, may need to delay treatment by 1 week -Clinic f/u upon discharge
[2025-04-02] MEDS: DOCUSATE 100 MG CAP PO SCH (21:27)
[2025-04-03 07:44] VITALS: BP 159/89; PULSE 85; TEMP 97.7
[2025-04-03] MEDS: metroNIDAZOLE 500 MG TAB PO SCH (09:16)
== END 2025-04-03 12:14 | disposition home or self-care (01) | DRG 392 ==
LOC: EC 05:14 → 5NMEDONC 08:30
PROVIDERS: ADMIT Family Medicine; ATTEND Family Medicine
DX: K52.9 Noninfective gastroenteritis and colitis, unspecified (principal); C25.0 Malignant neoplasm of head of pancreas; K29.70 Gastritis, unspecified, without bleeding; E27.9 Disorder of adrenal gland, unspecified; E80.6 Other disorders of bilirubin metabolism; K76.6 Portal hypertension; J44.9 Chronic obstructive pulmonary disease, unspecified; I10 Essential (primary) hypertension; I48.20 Chronic atrial fibrillation, unspecified; E83.42 Hypomagnesemia; R91.8 Other nonspecific abnormal finding of lung field; G89.3 Neoplasm related pain (acute) (chronic); G89.4 Chronic pain syndrome; M54.9 Dorsalgia, unspecified; E87.6 Hypokalemia; N40.0 Benign prostatic hyperplasia without lower urinary tract symptoms; Z87.891 Personal history of nicotine dependence; Z79.01 Long term (current) use of anticoagulants; Z79.82 Long term (current) use of aspirin; Z79.899 Other long term (current) drug therapy; Z88.8 Allergy status to other drugs, medicaments and biological substances; Z79.51 Long term (current) use of inhaled steroids; Z96.89 Presence of other specified functional implants
CPT/HCPCS: 36415; 74176; 74183; 80048; 80053; 81003; 83735; 84132; 85025; 93970; 94640; 96365; 96375; 96376; 99285